=== PATIENT | male | born 1930 | race Caucasian/White ===

== ENCOUNTER → 2016-09-23 | Outpatient (CLI) | payer MEDICARE, OTHER ==
--- NOTE | 2016-09-23 09:04 | RAD ---
Three view left knee. Indication: PAIN IN RIGHT KNEE Comparison: None Impression: Severe medial compartment osteoarthritis noted with moderate osteoarthritis of the lateral and patellofemoral compartments. Joint space narrowing and joint line osteophytes noted at each compartment with areas of cortical remodeling of the medial femoral condyle. No acute fracture or malalignment. Small suprapatellar knee effusion. Osteopenia. If this is a new finding, DEXA scan recommended as well as evaluation for possible osteoporosis treatment. Electronically signed by: Brent Kwan MD 09/23/2016 09:01
--- NOTE | 2016-09-23 09:05 | RAD ---
Single frontal view pelvis. Indication: PAIN IN RIGHT HIP Comparison: February 25, 2013. Impression: Mild to moderate bilateral hip osteoarthritis with joint space narrowing and acetabular roof osteophyte formation. No subchondral sclerosis or cystic change. No acute fracture or malalignment, evaluation is limited given degree of osteopenia. If high clinical concern for fracture, correlation with MRI or CT recommended. Partial visualization of iliac artery grafts. Heterotopic ossification noted inferolaterally left greater trochanter. 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 Electronically signed by: Brent Kwan MD 09/23/2016 09:02
== END ==
LOC: RAD 08:26
PROVIDERS: ATTEND Orthopaedic Surgery
DX: M17.12 Unilateral primary osteoarthritis, left knee (principal); M16.0 Bilateral primary osteoarthritis of hip; M19.90 Unspecified osteoarthritis, unspecified site

== ENCOUNTER → 2016-10-16 | Outpatient (CLI) | payer MEDICARE, OTHER ==
--- NOTE | 2016-10-16 11:25 | MRI ---
EXAM DESCRIPTION: Brain MRI. CLINICAL HISTORY: Acute onset of dizziness COMPARISON: None. TECHNIQUE: Multiplanar, multisequence MR images were acquired without IV contrast. FINDINGS: The midline structures are unremarkable on today's study. There are a few T2 hyperintensities noted within the cerebral white matter. 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 No intracranial mass effect, hydrocephalus, midline shift, hemorrhage, extra-axial fluid collection, abnormal vascular flow void, or restricted diffusion is seen. Minimal mucosal thickening seen within bilateral maxillary sinuses and ethmoid air cells. The orbits are unremarkable. Mastoid air cells are clear. IMPRESSION: Today's exam demonstrates minimal periventricular white matter disease with evidence of an old anterior right phoenix radiata lacunar infarct. No acute infarct on today's study. No additional significant findings noted Electronically signed by: Alex Rodriguez MD 10/16/2016 11:24
== END ==
LOC: MRI 09:23
PROVIDERS: ATTEND Family Medicine
DX: R42 Dizziness and giddiness (principal)

== ENCOUNTER → 2017-01-08 | Outpatient (CLI) | payer MEDICARE | END | disposition home or self-care (01) | LOC: GMAB 10:48 | PROVIDERS: ATTEND Family Medicine | DX: E03.9 Hypothyroidism, unspecified (principal); Z12.5 Encounter for screening for malignant neoplasm of prostate ==

== ENCOUNTER 2017-11-18 11:30 | Inpatient (IN) | payer MEDICARE ==
--- NOTE | 2017-11-18 11:52 | HP ---
SUPERVISING PHYSICIAN: Dimas Pires M.D. CHIEF COMPLAINT: Weakness and cold symptoms. HISTORY OF PRESENT ILLNESS: This is an 87 year-old male patient who has had symptoms of an upper respiratory infection for approximately 3 weeks. He started out with just a cough with some nausea and chest congestion. Approximately 3 weeks ago he was given a Z-Ramon at that time. It did get slightly better after the completion of his antibiotics, but then he worsened progressively over the last 3 weeks. It got to the point where he quit taking his medications. He was coughing. He had nausea with vomiting. He was extremely weak. He went to see his primary care physician, Dr. Ben Reyes, today and was found to have a normal white blood cell count but his chest x-ray showed a right lower lobe pneumonia. I was called for direct admission. He was admitted to the hospital. Vital signs showed that he was afebrile with a pulse rate of 111. Blood pressure was 137/82, respiratory rate 19, O2 sat was 94% on room air. Sodium was 131, potassium 3.7, chloride 99, carbon dioxide 23 , BUN 33, creatinine 1.48. He has had a past history of an elevated creatinine of 1.94 in 2012. Glucose was 131. BNP was 35.3. Digoxin level was less than 0.3. He was started initially on azithromycin and Rocephin but during the infusion of his azithromycin he had severe abdominal pain. The azithromycin was stopped and he was started on Levaquin. PAST MEDICAL HISTORY: 1. Hypertension. 2. Hyperlipidemia. 3. Gastroesophageal reflux disease. 4. Chronic back pain. 5. Hypothyroidism. 6. Atrial fibrillation on Xarelto, beta vishal and digoxin. PAST SURGICAL HISTORY: 1. Appendectomy. 2. Cholecystectomy. 3. Laparoscopic knee surgery. 4. Lung bronchoscopy. OUTPATIENT MEDICATIONS: Per the EMR and awaiting verification. ALLERGIES: NO KNOWN DRUG ALLERGIES, ALTHOUGH HE DID HAVE SOME ABDOMINAL PAIN WITH IV AZITHROMYCIN AT THIS VISIT. SOCIAL HISTORY: He is . He has 1 child. 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 He quit smoking in 2004. He drinks alcohol socially. He denies any illicit drug use. REVIEW OF SYSTEMS: GENERAL: Positive for fatigue. Negative for chills or fever. RESPIRATORY: Positive for coughing, shortness of breath and wheezing. CARDIOVASCULAR: Negative for chest pain, palpitations or tachycardia. GASTROINTESTINAL: Positive for anorexia, nausea or vomiting. Negative for constipation or diarrhea. MUSCULOSKELETAL: Negative for arthritis, back pain or myalgias. NEUROLOGIC: Negative for dizziness, headaches or seizures. GENITOURINARY: Negative hematuria, dysuria or polyuria. PHYSICAL EXAMINATION: VITAL SIGNS: He is afebrile. Heart rate 108, blood pressure 137/82, respiratory rate 18, O2 sat is 92% on room air. GENERAL: This is an 87 year-old male patient who is sitting up in his hospital bed. He appears to be moderately ill. HEENT: Normocephalic and atraumatic. Pupils are equal and reactive. Oropharynx is clear. Oral mucosal membranes are moist. NECK: RESPIRATORY: Normal respiratory rate. He has some expiratory wheezes in the bases and there are rhonchi scattered throughout. CHEST: There is equal rise and fall of the chest with inspiration and expiration. CARDIOVASCULAR: Regular rate and rhythm. GASTROINTESTINAL: Abdomen is soft, nondistended, non-tender. Bowel sounds are positive. EXTREMITIES: No cyanosis, clubbing or edema. NEUROLOGIC: He is awake, alert and oriented times three. LABORATORY: Labs and films are as per the history of present illness. ASSESSMENT: 1. Right lower lobe pneumonia failed outpatient therapy with an elevated heart rate of 111. 2. History of atrial fibrillation with a past history of an ablation on Xarelto, metoprolol and digoxin. 3. Hypertension, 4. Hyperlipidemia. 5. Gastroesophageal reflux disease. 6. Congestive heart failure with mild diastolic dysfunction and an ejection fraction of 65% per echo in 2014. PLAN: We will admit the patient to the hospital. Due to his adverse reaction to the IV azithromycin, he will be on Levaquin and Rocephin. We will do good pulmonary hygiene. I have given him some IV steroids and we will taper those off. Will repeat his labs and chest x-ray in the morning. I have restarted his home medications. I spoke with Dr. Espinoza about the patient's heart rate and low digoxin level. He said it was unnecessary to give him extra digoxin, just to restart his medications and if needed to go up on the metoprolol. I have also ordered some Mucinex. We will continue to monitor the patient closely and followup as needed. Dr. Pires is the collaborating physician available for consultation. #[id number] [facility]
[2017-11-18] MEDS ORDERED: SODIUM CHLORIDE 0.9% (FLUSH) 10 ML SYG IV PRN (12:11)
[2017-11-18] MEDS ORDERED: SODIUM CHL 0.9% 50ML MIN-BAG+ 50 ML IVPB ONE (13:01)
[2017-11-18] MEDS ORDERED: cefTRIAXone SODIUM 1 GM VIAL ONE (13:01)
[2017-11-18] MEDS ORDERED: AZITHROMYCIN IV 500 MG VIAL IVPB ONE (13:01)
[2017-11-18] MEDS ORDERED: SODIUM CHLORIDE 0.9% 250ML 250 ML ONE (13:01)
[2017-11-18] MEDS: cefTRIAXone SODIUM 1 GM in SODIUM CHL 0.9% 50ML MIN-BAG+ 50 ML IVPB SCH (13:03)
[2017-11-18] MEDS: IV SET AND CAP CHANGE INJ INJ SCH (13:04)
[2017-11-18] MEDS ORDERED: AZITHROMYCIN IV 500 MG in SODIUM CHLORIDE 0.9% 250ML 250 ML IVPB SCH (13:30)
[2017-11-18] MEDS ORDERED: ALBUTEROL SULFATE 2.5 MG/3 ML VIAL NEB PRN (13:51)
[2017-11-18] MEDS: ALBUTEROL SULFATE 2.5 MG/3 ML VIAL NEB SCH ×3 (14:15→20:02)
[2017-11-18] MEDS ORDERED: HYDROcodone 5MG/APAP 325MG 1 EA TAB PO ONE (14:48)
[2017-11-18] MEDS ORDERED: METOPROLOL TARTRATE 50 MG TAB PO ONE (14:48)
[2017-11-18] MEDS ORDERED: DIGOXIN 0.125 MG TAB PO ONE (15:00)
[2017-11-18] MEDS ORDERED: ALUMINUM & MAGNESIUM HYDROXIDE 30 ML UD ONE (15:05)
[2017-11-18] MEDS ORDERED: ALUMINUM & MAGNESIUM HYDROXIDE 30 ML UD PO ONE (15:06)
[2017-11-18] MEDS ORDERED: levoFLOXacin 500MG IV 100 ML IVPB ONE (17:32)
[2017-11-18] MEDS: levoFLOXacin 500MG IV 500 MG in PREMIX BAG 1 BAG IVPB SCH (17:40)
[2017-11-18] MEDS ORDERED: methylPREDNISolone SODIUM SUC 125 MG/2 ML VIAL IV ONE (18:13)
[2017-11-18] MEDS ORDERED: methylPREDNISolone SODIUM SUC 125 MG/2 ML VIAL IV SCH (18:30)
[2017-11-18] MEDS ORDERED: DIGOXIN 0.125 MG TAB PO SCH (18:30)
[2017-11-18] MEDS ORDERED: RIVAROXABAN 10 MG TAB ONE (19:27)
[2017-11-18] MEDS ORDERED: HYDROcodone 5MG/APAP 325MG 1 EA TAB ONE (20:31)
[2017-11-18] MEDS: SODIUM CHLORIDE 0.9% (FLUSH) 10 ML SYG IV SCH (20:39)
[2017-11-18] MEDS: guaiFENesin ER TAB 600 MG TAB PO SCH (20:39)
[2017-11-18] MEDS: traZODone HCL 50 MG TAB PO SCH (20:39)
[2017-11-18] MEDS: HYDROcodone 7.5MG/APAP 325MG 1 EA TAB PO PRN (20:41)
[2017-11-18] MEDS ORDERED: FUROSEMIDE 40 MG TAB PO SCH (21:00)
[2017-11-18] MEDS ORDERED: NON-FORMULARY MEDICATION 1 EA MIS (Rivaroxaban [Xarelto] 20 MG) PO SCH (21:00)
[2017-11-18] MEDS ORDERED: HYDROcodone 7.5MG/APAP 325MG 1 EA TAB PO SCH (22:00)
[2017-11-19] MEDS: methylPREDNISolone SODIUM SUC 125 MG/2 ML VIAL IV SCH ×3 (05:57→21:43)
--- NOTE | 2017-11-19 07:42 | RAD ---
EXAM DESCRIPTION: Chest,2 Views CLINICAL HISTORY: Pneumonia COMPARISON: November 20, 2015 FINDINGS: Two-view chest x-ray shows enlargement of the cardiac silhouette without pulmonary vascular congestion. The lungs are hyperinflated. More prominent patchy areas of airspace interstitial alveolar density are seen in the right lower lobe than previous exam. Increased density in the retrocardiac region with questionable air-fluid level is seen. Moderate disc degenerative changes of the spine are noted. IMPRESSION: Developing infiltrates in the right lower lobe could represent pneumonia versus atelectasis. Continued follow-up until resolution is recommended. Suspect retrocardiac hiatal hernia. Electronically signed by: Hansel Wolfe MD 11/19/2017 7:41 AM CLIENT SERVICE PROFESSIONAL
[2017-11-19] MEDS: ALBUTEROL SULFATE 2.5 MG/3 ML VIAL NEB SCH ×4 (08:02→21:00)
[2017-11-19] MEDS: LISINOPRIL 5 MG TAB PO SCH (08:29)
[2017-11-19] MEDS: FUROSEMIDE 40 MG TAB PO SCH ×2 (08:29→17:19)
[2017-11-19] MEDS: METOPROLOL SUCCINATE XL 50 MG TAB PO SCH (08:30)
[2017-11-19] MEDS: guaiFENesin ER TAB 600 MG TAB PO SCH ×2 (08:30→20:37)
[2017-11-19] MEDS: SODIUM CHLORIDE 0.9% (FLUSH) 10 ML SYG IV SCH (08:30)
[2017-11-19] MEDS ORDERED: SODIUM CHL 0.9% 50ML MIN-BAG+ 50 ML IVPB ONE (11:27)
[2017-11-19] MEDS ORDERED: cefTRIAXone SODIUM 1 GM VIAL ONE (11:28)
[2017-11-19] MEDS: cefTRIAXone SODIUM 1 GM in SODIUM CHL 0.9% 50ML MIN-BAG+ 50 ML IVPB SCH (13:02)
[2017-11-19] MEDS: DIGOXIN 0.125 MG TAB PO SCH (13:02)
[2017-11-19] MEDS ORDERED: MAGNESIUM SULFATE PREMIX 2GM 2 GM in PREMIX BAG 1 BAG IVPB ONE (14:04)
[2017-11-19] MEDS ORDERED: SODIUM CHLORIDE 0.9% 1000ML 1,000 ML IVS PRN (14:04)
[2017-11-19] MEDS ORDERED: DEXTROSE 50% 25 GM/50 ML SYG IV PRN (14:12)
[2017-11-19] MEDS ORDERED: GLUCAGON INJ 1 MG VIAL SUBCU PRN (14:12)
[2017-11-19] MEDS ORDERED: MAGNESIUM SULFATE PREMIX 2GM 50 ML IVPB ONE (14:51)
[2017-11-19] MEDS ORDERED: levoFLOXacin 500MG IV 100 ML IVPB ONE (14:51)
--- NOTE | 2017-11-19 15:38 | PN ---
DATE: 11/19/17 SUPERVISING PHYSICIAN: Dimas Pires M.D. SUBJECTIVE: The patient is sitting in his hospital bed. He complains of insomnia as well as some shortness of breath. Denies chest pain, nausea and vomiting, wheezing, cough, diarrhea or constipation. OBJECTIVE: VITAL SIGNS: He is afebrile, heart rate 104, blood pressure 155/77, respiratory rate 20, O2 sat is 92% on room air. RESPIRATORY: Scattered rhonchi throughout with a few expiratory wheezes in the right lower lung francois. CARDIAC: Slightly tachycardic rate, regular rhythm. GASTROINTESTINAL: Abdomen is soft, nondistended, non-tender. Bowel sounds are positive. EXTREMITIES: No cyanosis, clubbing or edema. NEUROLOGIC: He is awake, alert and oriented times three. LABORATORY: WBC of 4, hemoglobin 16.3 with hematocrit 47.6, neutrophils 87.6. Sodium 132, potassium 4, chloride 99, carbon dioxide 23, BUN 37, creatinine 1.43. Blood sugars are up to 314 with calcium 8.1, magnesium 1.6. Preliminary sputum culture shows normal emlba at 24 hours. Preliminary blood cultures show no growth after 24 hours. RADIOLOGY: Chest x-ray shows developing infiltrates in the right lower lobe, could represent pneumonia versus atelectasis. Continued followup recommended. Suspect retrocardiac hiatal hernia. All other labs and films have been reviewed via the EMR. ASSESSMENT: 1. Right lower lobe pneumonia failed outpatient therapy with an elevated heart rate of 111 that is now down to around 100. 2. History of atrial fibrillation with a past history of an ablation on Xarelto, metoprolol and digoxin. 3. Hypertension. 4. Elevated blood sugars without diagnosis of diabetes mellitus. 5. Hyperlipidemia. 6. Gastroesophageal reflux disease. 7. Congestive heart failure with mild diastolic dysfunction and an ejection fraction of 65% per echo in 2014. His BNP on admission was 35. PLAN: We will continue present supportive care. I have added Accu-Cheks with sliding scale insulin. Most likely blood sugars are elevated due to steroids. I have also tapered his steroids down and I will give him 1 liter of fluids as he did not receive any on admission yesterday due to possible fluid overload. His BNP was normal, so I will give him 1 liter. His magnesium was also slightly low so I have given him some magnesium replacement and I will recheck it in the morning. I held off on an x-ray as he will be here at least 2 additional days and will do an x-ray on Friday morning. Will continue to monitor cultures. Continue on the Levaquin and Rocephin. We will monitor the patient closely and follow as needed. Dr. Pires is the collaborating physician available for consultation. #[id number] [facility]TD[facility]
[2017-11-19] MEDS: INSULIN LISPRO 100 UNITS/ML PEN SUBCU SCH ×2 (17:18→21:16)
[2017-11-19] MEDS: levoFLOXacin 500MG IV 500 MG in PREMIX BAG 1 BAG IVPB SCH (17:19)
[2017-11-19] MEDS: RIVAROXABAN 10 MG TAB PO SCH (20:37)
[2017-11-19] MEDS: traZODone HCL 50 MG TAB PO SCH (20:37)
[2017-11-19] MEDS: SIMVASTATIN 20 MG TAB PO SCH (20:37)
[2017-11-19] MEDS: TEMAZEPAM 15 MG CAP PO PRN (20:37)
[2017-11-19] MEDS: HYDROcodone 7.5MG/APAP 325MG 1 EA TAB PO PRN (20:38)
[2017-11-20] MEDS ORDERED: methylPREDNISolone SODIUM SUC 40 MG/ML VIAL IV SCH (06:00)
[2017-11-20] MEDS: INSULIN LISPRO 100 UNITS/ML PEN SUBCU SCH ×4 (07:11→21:19)
[2017-11-20] MEDS: ALBUTEROL SULFATE 2.5 MG/3 ML VIAL NEB SCH (07:13)
[2017-11-20] MEDS: guaiFENesin ER TAB 600 MG TAB PO SCH ×2 (09:28→20:42)
[2017-11-20] MEDS: METOPROLOL SUCCINATE XL 50 MG TAB PO SCH (09:28)
[2017-11-20] MEDS: LISINOPRIL 5 MG TAB PO SCH (09:29)
[2017-11-20] MEDS: FUROSEMIDE 40 MG TAB PO SCH ×2 (09:29→17:12)
[2017-11-20] MEDS ORDERED: LEVALBUTEROL NEBS 1.25 MG/3 ML VIAL NEB PRN (11:10)
[2017-11-20] MEDS: LEVALBUTEROL NEBS 1.25 MG/3 ML VIAL NEB SCH ×3 (11:26→20:10)
--- NOTE | 2017-11-20 11:45 | PN ---
SUPERVISING PHYSICIAN: Dimas Pires MD DATE: 11/20/17 SUBJECTIVE: The patient is sitting up on the side of the bed. He complains of congestive cough and weakness, but he does feel much better than he has and he has been able to walk in the hallways today whereas it was very difficult yesterday. He also complained that the breathing treatments were making him slightly shaky. We spoke at length about pneumonia and recovery time. OBJECTIVE: VITAL SIGNS: Afebrile. Heart rate 99. Blood pressure 136/78. Respiratory rate 20. O2 saturation 90% on room air. RESPIRATORY: Scattered rhonchi throughout. No wheezing noted. Somewhat diminished at the bases. CARDIAC: Regular rate and rhythm. GASTROINTESTINAL: Abdomen is soft, nondistended, nontender. Bowel sounds are positive. EXTREMITIES: No cyanosis, clubbing or edema. NEUROLOGIC: Awake, alert and oriented times three. LABORATORY: WBCs 10.6, stable hemoglobin 16.6, hematocrit 48.7. Blood sugars have run between 185 and 137. Sodium 135, potassium 4, chloride 100, carbon dioxide 24, BUN 39, creatinine 1.57, calcium 8.2. Sputum culture shows normal melba at 48 hours. Preliminary blood cultures show no growth at 24 hours. All other labs and films have been reviewed via the EMR. ASSESSMENT: 1. Right lower lobe pneumonia failed outpatient therapy with an elevated heart rate of 111 that is now down to 70s and 80s. 2. History of atrial fibrillation with a past history of an ablation, presently on Xarelto, metoprolol and digoxin. 3. Hypertension. 4. Elevated blood sugars without diagnosis of diabetes mellitus, presently on steroids and blood sugars are fairly well controlled. 5. Hyperlipidemia. 6. Gastroesophageal reflux disease. 7. Congestive heart failure with mild diastolic dysfunction and an ejection fraction of 65% per echocardiogram in 2014. His BNP on admission was 35. PLAN: We will continue present supportive care. I have changed his breathing treatments from albuterol to Xopenex to help with his shakiness. I also increased his Mucinex to help with his cough. I have discontinued IV fluids. I have added lab and chest x-ray in the morning. I will also have an ambulation study in case he needs oxygen for discharge. I encouraged him to walk in the hallways as much as possible and continue encouraging good pulmonary hygiene. Dr. Pires is the collaborating physician and available for consultation. #[id number] [facility]
[2017-11-20] MEDS ORDERED: cefTRIAXone SODIUM 1 GM VIAL ONE (12:04)
[2017-11-20] MEDS ORDERED: SODIUM CHL 0.9% 50ML MIN-BAG+ 50 ML IVPB ONE (12:04)
[2017-11-20] MEDS: DIGOXIN 0.125 MG TAB PO SCH (12:30)
[2017-11-20] MEDS: cefTRIAXone SODIUM 1 GM in SODIUM CHL 0.9% 50ML MIN-BAG+ 50 ML IVPB SCH (12:30)
[2017-11-20] MEDS: methylPREDNISolone SODIUM SUC 40 MG/ML VIAL IV SCH ×2 (13:00→18:21)
[2017-11-20] MEDS ORDERED: levoFLOXacin 250MG IV 50 ML IVPB ONE (16:56)
[2017-11-20] MEDS ORDERED: MAGNESIUM HYDROXIDE 30 ML UD PO ONE (17:08)
[2017-11-20] MEDS: levoFLOXacin 250MG IV 250 MG in PREMIX BAG 1 BAG IVPB SCH (17:12)
[2017-11-20] MEDS: RIVAROXABAN 10 MG TAB PO SCH (20:43)
[2017-11-20] MEDS: SIMVASTATIN 20 MG TAB PO SCH (20:43)
[2017-11-20] MEDS: SODIUM CHLORIDE 0.9% (FLUSH) 10 ML SYG IV SCH (20:43)
[2017-11-20] MEDS: traZODone HCL 50 MG TAB PO SCH (20:43)
[2017-11-21] MEDS: TEMAZEPAM 15 MG CAP PO PRN (00:30)
[2017-11-21] MEDS: methylPREDNISolone SODIUM SUC 40 MG/ML VIAL IV SCH ×2 (00:30→05:58)
[2017-11-21] MEDS: HYDROcodone 7.5MG/APAP 325MG 1 EA TAB PO PRN ×2 (01:16→16:44)
--- NOTE | 2017-11-21 06:52 | RAD ---
EXAM: PA and LATERAL CHEST RADIOGRAPHS CLINICAL INDICATION: Shortness of breath. Pneumonia. COMPARISON: Chest radiographs of November 19, 2017. FINDINGS: Cardiac size and pulmonary vasculature are normal. Improving right basilar consolidation. Left lung is clear. No pleural effusions or pneumothorax. No free peritoneal gas layering under the hemidiaphragms. No suspicious hilar or mediastinal lymphadenopathy. Bones are normal. IMPRESSION: Improving right basilar consolidation. Electronically signed by: Dustin Becker MD 11/21/2017 6:51 AM REVIT DRAFTER
[2017-11-21] MEDS ORDERED: SODIUM CHL 0.9% 50ML MIN-BAG+ 50 ML IVPB ONE (07:19)
[2017-11-21] MEDS ORDERED: cefTRIAXone SODIUM 1 GM VIAL ONE (07:20)
[2017-11-21] MEDS ORDERED: levoFLOXacin 250MG IV 50 ML IVPB ONE (07:20)
[2017-11-21] MEDS: INSULIN LISPRO 100 UNITS/ML PEN SUBCU SCH ×4 (07:33→21:03)
[2017-11-21] MEDS: LEVALBUTEROL NEBS 1.25 MG/3 ML VIAL NEB SCH ×4 (08:32→20:59)
[2017-11-21] MEDS: guaiFENesin ER TAB 600 MG TAB PO SCH ×2 (08:54→20:59)
[2017-11-21] MEDS: LISINOPRIL 5 MG TAB PO SCH (08:54)
[2017-11-21] MEDS: FUROSEMIDE 40 MG TAB PO SCH ×2 (08:55→16:48)
[2017-11-21] MEDS: METOPROLOL SUCCINATE XL 50 MG TAB PO SCH (08:55)
[2017-11-21] MEDS: SODIUM CHLORIDE 0.9% (FLUSH) 10 ML SYG IV SCH ×2 (08:55→21:00)
[2017-11-21] MEDS: predniSONE 20 MG TAB PO SCH (09:30)
[2017-11-21] MEDS: cefTRIAXone SODIUM 1 GM in SODIUM CHL 0.9% 50ML MIN-BAG+ 50 ML IVPB SCH (11:52)
[2017-11-21] MEDS: DIGOXIN 0.125 MG TAB PO SCH (11:52)
--- NOTE | 2017-11-21 13:46 | PN ---
SUPERVISING PHYSICIAN: Dimas Pires MD DATE: 11/21/17 SUBJECTIVE: The patient is sitting up in his chair. He has been walking the hallways. He feels like he is getting much stronger. He has no complaints of shortness of breath, nausea, vomiting, diarrhea or constipation. OBJECTIVE: VITAL SIGNS: Afebrile. Heart rate 92 to 107. Blood pressure 134/ 84. Respiratory rate 21. O2 satisfactory 95% on room air. RESPIRATORY: A few scattered rhonchi in the apices, but much improved since yesterday. Slightly diminished at the bases. CARDIAC: Regular rate and rhythm. NEUROLOGIC: Awake, alert and oriented times three. LABORATORY: WBC 9.7, hemoglobin 15.7, hematocrit 46.3, platelet count 193. Blood sugars have run between 107 and 177. Sodium 137, potassium 4.2, chloride 102, carbon dioxide 27, BUN 45, creatinine 1.49. Calcium 8.2, magnesium 2.6. His final sputum culture shows normal melba at 48 hours. Preliminary blood culture showed no growth after 3 days. Chest x-ray shows improving right basilar consolidation. All other labs and films have been reviewed via the EMR. ASSESSMENT: 1. Right lower lobe pneumonia failed outpatient therapy with an elevated heart rate of 111, now within normal limits. 2. History of atrial fibrillation with a past history of an ablation, presently on Xarelto, metoprolol and digoxin. 3. Hypertension. 4. Elevated blood sugars without diagnosis of diabetes mellitus, presently on a a tapering dose of steroids. 5. Hyperlipidemia. 6. Gastroesophageal reflux disease. 7. Congestive heart failure with mild diastolic dysfunction and an ejection fraction of 65% per echocardiogram in 2014. His BNP on admission was 35. PLAN: We will continue present supportive care. I have encouraged good pulmonary hygiene as well as continued frequent walking in the hallways. He is still quite concerned about going home as his has dementia and he may need some assistance. We have discussed home health and at this point he cannot decide which agency he will use. I will recheck his labs and chest x-ray tomorrow. He is now on oral prednisone. Hopefully he can be discharged tomorrow. We will continue to monitor the patient closely and follow as needed. Dr. Pires is the collaborating physician and available for consultation. #[id number] [facility]
[2017-11-21] MEDS: IV SET AND CAP CHANGE INJ INJ SCH (16:48)
[2017-11-21] MEDS: levoFLOXacin 250MG IV 250 MG in PREMIX BAG 1 BAG IVPB SCH (18:20)
[2017-11-21] MEDS: RIVAROXABAN 10 MG TAB PO SCH (20:59)
[2017-11-21] MEDS: SIMVASTATIN 20 MG TAB PO SCH (20:59)
[2017-11-21] MEDS: traZODone HCL 50 MG TAB PO SCH (21:00)
[2017-11-22] MEDS: LEVALBUTEROL NEBS 1.25 MG/3 ML VIAL NEB SCH ×4 (07:22→20:05)
--- NOTE | 2017-11-22 07:28 | RAD ---
Clinical History : pna , MAIN Exam : PA and lateral views of the chest 11/22/2017 5:00 AM [employer]EE [employer] Comparisons : PA and lateral views of the chest November 21, 2017 CT abdomen and pelvis without contrast April 13, 2013 Findings : There is increasing patchy right basilar airspace disease. The rest the lungs remain largely clear without pleural effusion. The heart is stable in size. The mediastinal contours are normal in appearance. There are vascular calcifications along the aortic arch. There is a stable moderate-sized hiatal hernia. The thoracic spine is age appropriate. The shoulders are unremarkable. Limited evaluation of the upper abdomen demonstrates no gross abnormalities. Impression: 1. Increasing patchy right basilar airspace disease. 2. Stable moderate hiatal hernia. Electronically signed by: Garima Zamorano MD 11/22/2017 7:27 AM J[employer]
[2017-11-22] MEDS: INSULIN LISPRO 100 UNITS/ML PEN SUBCU SCH ×4 (08:12→21:15)
[2017-11-22] MEDS: HYDROcodone 7.5MG/APAP 325MG 1 EA TAB PO PRN ×2 (10:28→19:29)
[2017-11-22] MEDS: FUROSEMIDE 40 MG TAB PO SCH ×2 (10:28→17:03)
[2017-11-22] MEDS: LISINOPRIL 5 MG TAB PO SCH (10:28)
[2017-11-22] MEDS: predniSONE 20 MG TAB PO SCH (10:28)
[2017-11-22] MEDS: guaiFENesin ER TAB 600 MG TAB PO SCH ×2 (10:29→20:41)
[2017-11-22] MEDS: METOPROLOL SUCCINATE XL 50 MG TAB PO SCH (10:29)
[2017-11-22] MEDS: SODIUM CHLORIDE 0.9% (FLUSH) 10 ML SYG IV SCH ×2 (10:32→20:42)
[2017-11-22] MEDS ORDERED: SODIUM CHL 0.9% 50ML MIN-BAG+ 50 ML IVPB ONE (12:43)
[2017-11-22] MEDS ORDERED: cefTRIAXone SODIUM 1 GM VIAL ONE (12:44)
[2017-11-22] MEDS: DIGOXIN 0.125 MG TAB PO SCH (12:49)
[2017-11-22] MEDS: cefTRIAXone SODIUM 1 GM in SODIUM CHL 0.9% 50ML MIN-BAG+ 50 ML IVPB SCH (12:49)
--- NOTE | 2017-11-22 13:59 | PN ---
DATE: 11/22/17 SUBJECTIVE: The patient is lying in the bed. He is fully awake and alert. He states he is very tired and has difficulty getting out of the bed without some assistance. He has been ambulating but he states that it is hard for him to walk as far as he needs to walk in order to continue taking care of his when he returns home. He is concerned that she is unable to participate in giving him care because of her own disabilities. His does have dementia and is currently at home alone. At this time, the patient does not wish to have home health and is hoping to be able to spend 1 more day to get a little stronger. OBJECTIVE: Afebrile, pulse 92, blood pressure 131/72, pulse oximetry 97% on room air. Weight is 91.3 kilos. GENERAL: The patient is awake and alert. BREATHING: He does have noticeable rales in the right base with none noted on the left. Breath sounds are fairly otherwise equal bilaterally. ABDOMEN: Soft. No organomegaly evident. LABORATORY: White count 8,400, hemoglobin 14.6. Chemistry shows potassium 3.9 , BUN is 48 which is up from 45 yesterday. Creatinine is 1.51 up from 1.49 yesterday. Sugar is 150 fasting, calcium 8. Cultures of sputum and blood are negative at this time. Repeat chest x-ray shows a progression in the previously noted slight improvement in the right basilar infiltrative process suggesting a pneumonia. ASSESSMENT: 1. Acute right lower lobe pneumonia probable community acquired, symptomatic with weakness, shortness of breath and tachycardia. Sputum cultures negative being treated with Rocephin and Levaquin at this time. 2. History of atrial fibrillation in the past with a history of an ablation currently on Xarelto, metoprolol and digoxin. 3. History of hypertension under treatment. 4. History of hyperglycemia but no diagnosis of diabetes mellitus currently on corticosteroids being tapered. 5. Hyperlipidemia by history. 6. History of gastroesophageal reflux disease. 7. History of congestive heart failure with mild diastolic dysfunction and an ejection fraction of 65% on echocardiogram in 2013. BNP on admission normal at 35. PLAN: At this time, the patient is noticeably weak and wishes 1 more day of increased activities to the point that he would be safe to be able to return home and continue with the ongoing care of his . At this time, we will hold on home health and reevaluate in the morning. Hopefully continued outpatient management can be done at that time with followup with Dr. Reyes's office. #[id number] [facility]TD[facility]
[2017-11-22] MEDS ORDERED: levoFLOXacin 250MG IV 50 ML IVPB ONE (16:47)
[2017-11-22] MEDS: levoFLOXacin 250MG IV 250 MG in PREMIX BAG 1 BAG IVPB SCH (17:03)
[2017-11-22] MEDS: SIMVASTATIN 20 MG TAB PO SCH (20:41)
[2017-11-22] MEDS: traZODone HCL 50 MG TAB PO SCH (20:42)
[2017-11-22] MEDS: RIVAROXABAN 10 MG TAB PO SCH (20:42)
[2017-11-23] MEDS: LEVALBUTEROL NEBS 1.25 MG/3 ML VIAL NEB SCH ×2 (07:53→12:49)
[2017-11-23] MEDS: INSULIN LISPRO 100 UNITS/ML PEN SUBCU SCH ×2 (08:12→11:29)
[2017-11-23] MEDS: guaiFENesin ER TAB 600 MG TAB PO SCH (08:26)
[2017-11-23] MEDS: predniSONE 20 MG TAB PO SCH (08:26)
[2017-11-23] MEDS: METOPROLOL SUCCINATE XL 50 MG TAB PO SCH (08:27)
[2017-11-23] MEDS: LISINOPRIL 5 MG TAB PO SCH (08:27)
[2017-11-23] MEDS: SODIUM CHLORIDE 0.9% (FLUSH) 10 ML SYG IV SCH (08:27)
[2017-11-23] MEDS: FUROSEMIDE 40 MG TAB PO SCH (08:27)
[2017-11-23] MEDS: HYDROcodone 7.5MG/APAP 325MG 1 EA TAB PO PRN (08:33)
[2017-11-23 11:12] VITALS: BP 128/76; TEMP 98.4
[2017-11-23] MEDS ORDERED: SODIUM CHL 0.9% 50ML MIN-BAG+ 50 ML IVPB ONE (12:37)
[2017-11-23] MEDS ORDERED: cefTRIAXone SODIUM 1 GM VIAL ONE (12:38)
[2017-11-23] MEDS: DIGOXIN 0.125 MG TAB PO SCH (12:57)
[2017-11-23] MEDS: cefTRIAXone SODIUM 1 GM in SODIUM CHL 0.9% 50ML MIN-BAG+ 50 ML IVPB SCH (12:58)
[2017-11-23 13:51] VITALS: O2SAT 96
[2017-11-23] MEDS ORDERED: levoFLOXacin 500 MG TAB ONE (14:05)
[2017-11-23] MEDS ORDERED: levoFLOXacin 500 MG TAB PO ONE (14:06)
--- NOTE | 2017-11-23 16:01 | DS ---
DISCHARGE DIAGNOSIS: 1. Acute right lower lobe pneumonia probable community acquired, symptomatic with weakness, shortness of breath and tachycardia on admission. Sputum cultures negative and was treated with Rocephin and Levaquin. 2. Chronic obstructive pulmonary disease with an acute exacerbation requiring antiinflammatory, bronchodilators and pulmonary hygiene to assist with resolution of some of the significant symptoms. 3. Chronic atrial fibrillation in the past with ablation and currently on Xarelto, metoprolol and digoxin. 4. History of hypertension under treatment. 5. History of hyperglycemia currently on corticosteroids being tapered. 6. History of hyperlipidemia. 7. History of gastroesophageal reflux disease. 8. .History of congestive heart failure with mild diastolic dysfunction and an ejection fraction of 65% on echocardiogram in 2014. BNP normal on admission. HISTORY OF PRESENT ILLNESS: This 87 year-old white male is admitted to the hospital because of worsening weakness with cough, some nausea, chest congestion and shortness of breath. It has been getting progressively worse for the last three weeks. He sees Dr. Reyes in the clinic where he was noted to have a right lower lobe on chest x-ray showing pneumonia. The patient was admitted from the office to the hospital for initiation of therapy and close followup with Dr. Reyes after discharge. He was initially started on azithromycin and Rocephin. The azithromycin seemed to coincide with some worsening abdominal discomfort and some nausea so it was stopped and changed to Levaquin which was successfully tolerated during the course of his treatment in the hospital. LABORATORY: White count was 6,500 up to 8.400 with 86% neutrophils. At discharge, hemoglobin was 14.6. INR 1.1. Chemistries show low sodium of 131, increasing to 137 at discharge. BUN was up to 48 by the time of discharge which will require ongoing followup. Creatinine also showed increase up to 1.51. Glucose was at a maximum of 314 but came down to 179 before discharge. Beta natriuretic peptide 35.3. Albumin 2.9. Urinalysis showed some ketonuria, 3+ bacteruria with cultures of blood, sputum showing no growth. Digoxin level was low at under 0.3. Chest x-ray did show persistence of the right lower lobe infiltrate with a hiatal hernia present. Close followup necessary. HOSPITAL COURSE: The patient was feeling much improved on the morning of discharge and very much was wanting to continue with outpatient management and followup so he could be at home to assist his . The is also present at the time of his discharge. PLAN: Followup with Dr. Reyes this next Friday with a chest x-ray before clinic visit so Dr. Reyes can review it, regarding the right lower lobe infiltrate. Appointment to be made by calling the office tomorrow with an appointment hopefully around November 26, 2017. Please refer to home medication list which he will be continued on Levaquin 500 mg daily for 7 days, continue with albuterol medication nebulizers t.i.d., prednisone 10 mg daily for 10 days and a trial of Restoril 15 mg only on a p.r.n. basis to help with insomnia. Stay active and breathe deeply. Return if not improving. #[id number] [facility]TDD
== END 2017-11-23 14:45 | disposition home or self-care (01) | DRG 194 ==
LOC: MS 11:30
PROVIDERS: ADMIT Nurse Practitioner Acute Care; ATTEND Emergency Medicine
DX: J18.9 Pneumonia, unspecified organism (principal); I50.32 Chronic diastolic (congestive) heart failure; J44.1 Chronic obstructive pulmonary disease with (acute) exacerbation; J44.0 Chronic obstructive pulmonary disease with (acute) lower respiratory infection; E87.1 Hypo-osmolality and hyponatremia; I48.91 Unspecified atrial fibrillation; I11.0 Hypertensive heart disease with heart failure; E78.5 Hyperlipidemia, unspecified; K21.9 Gastro-esophageal reflux disease without esophagitis; R63.0 Anorexia; R10.9 Unspecified abdominal pain; T36.3X5A Adverse effect of macrolides, initial encounter; Y92.238 Other place in hospital as the place of occurrence of the external cause; G89.29 Other chronic pain; M54.9 Dorsalgia, unspecified; E03.9 Hypothyroidism, unspecified; I48.2 Chronic atrial fibrillation; R73.9 Hyperglycemia, unspecified; T38.0X5A Adverse effect of glucocorticoids and synthetic analogues, initial encounter; K44.9 Diaphragmatic hernia without obstruction or gangrene; R00.0 Tachycardia, unspecified; G47.00 Insomnia, unspecified; E83.42 Hypomagnesemia; Z87.891 Personal history of nicotine dependence; Z79.01 Long term (current) use of anticoagulants; Z79.899 Other long term (current) drug therapy

== ENCOUNTER → 2017-12-12 | Outpatient (CLI) | payer MEDICARE ==
--- NOTE | 2017-12-13 09:03 | RAD ---
EXAM DESCRIPTION: Knee,Left Complete CLINICAL HISTORY: 87 years, Male, PAIN COMPARISON: None TECHNIQUE: 4 views of the left knee including 3 standing views FINDINGS: No fracture or dislocation. Bones appear dense. Markedly narrowed medial compartment on frontal view with sclerosis and eburnation and medial joint line spurring. Faint chondrocalcinosis is seen in the lateral compartment with lateral femoral condylar spurring and spurring at the tibial spines. Lateral view shows normal position of the patella. Posterior patellar spurring is present. Probable small suprapatellar knee joint effusion present. Normal contour of quadriceps and patellar tendons. There is prominent spurring of the posterior femoral condyles. No abnormal patellar tilt or subluxation on patellar sunrise view. Posterior patellar spurring is seen as well as spurring of the anterior femoral trochlea. IMPRESSION: Advanced osteoarthrosis of the left knee. Electronically signed by: Evens Singh MD 12/13/2017 9:02 AM CDT
--- NOTE | 2017-12-13 09:05 | RAD ---
EXAM DESCRIPTION: Knee,Right Complete CLINICAL HISTORY: 87 years, Male, PAIN COMPARISON: None TECHNIQUE: 4 views of the right knee, 3 of which were standing FINDINGS: No fracture or dislocation. Bones appear dense. Markedly narrowed medial compartment on frontal view. Meniscal calcification in the lateral compartment is seen. Prominent medial joint line spurring. Lateral view shows normal position of the patella. No patellar spurring or enthesopathy. No definite suprapatellar knee joint effusion. Normal contour of quadriceps and patellar tendons. Posterior patellar spurring medially and laterally is seen on patellar sunrise view. IMPRESSION: Advanced osteoarthrosis of the right knee. Electronically signed by: Evens Singh MD 12/13/2017 9:04 AM CDT
--- NOTE | 2017-12-13 09:07 | RAD ---
EXAM DESCRIPTION: Pelvis CLINICAL HISTORY: 87 years Male, PAIN COMPARISON: September 23, 2016 TECHNIQUE: 2 frontal views of the pelvis and hips FINDINGS: Degenerative changes are seen in the pubic symphysis. Stents are seen in the iliac vessels. Bones appear osteopenic. Degenerative changes are prominent in the L-spine. Soft tissue calcification is present near the greater trochanter of the proximal left femur. No hip fracture or dislocation. Intact bones of the pelvic ring. No sacral fracture. IMPRESSION: Negative for fracture or dislocation. Electronically signed by: Evens Singh MD 12/13/2017 9:06 AM CDT
== END ==
LOC: RAD 08:00
PROVIDERS: ATTEND Orthopaedic Surgery
DX: M17.11 Unilateral primary osteoarthritis, right knee (principal); M17.12 Unilateral primary osteoarthritis, left knee; M25.552 Pain in left hip; M25.551 Pain in right hip

== ENCOUNTER → 2018-04-10 | Outpatient (CLI) | payer MEDICARE | LOC: RESP 09:30 | PROVIDERS: ATTEND Family Medicine | DX: R06.02 Shortness of breath (principal) ==

== ENCOUNTER 2018-07-17 13:12 | Inpatient (IN) | payer MEDICARE ==
--- NOTE | 2018-07-17 13:53 | RAD ---
EXAM DESCRIPTION: Chest,1 View CLINICAL HISTORY: 88 years Male, fever COMPARISON: November 22, 2017 TECHNIQUE: AP portable chest. FINDINGS: Single view of the chest shows dense consolidation in the right lung base with at least a small amount of pleural fluid at the lateral lung base. The left lung is clear. Acute right basilar pneumonitis is suspected. The aorta is tortuous. Mild dextroscoliosis of the dorsal spine is noted. Arch size is upper normal with normal vascularity. The right basilar changes are new from prior November examination. IMPRESSION: Right basilar pneumonitis with small pleural effusion and upper normal heart size. Electronically signed by: Dimas Posada MD 07/17/2018 1:51 PM CDT
[2018-07-17] MEDS ORDERED: DIGOXIN INJ 0.5 MG/2 ML AMP IV ONE ×2 (13:55→22:00)
--- NOTE | 2018-07-17 14:30 | ED.PDOC ---
History of Present Illness - General Chief Complaint: General Stated Complaint: short of breath Time Seen by Provider: 07/17/18 13:17 Source: patient Exam Limitations: no limitations - History of Present Illness Initial Comments: Patient presents with fatigue. He says that it has been ongoing for months. A week ago, he stopped all of his medications and the fatigue has been getting worse. He says that he has had "strokes" before but never has had them treated. He has a history of recurrent falls. 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 Today he was taking a shower and it weakened him enough to where he wanted to go to bed and not get up. He has COPD and has chronic dyspnea. Does not use oxygen at home. He says that sometimes he has visual hallucinations. An example that he gives is that he can watch the television when it is turned off and still see things on the screen. He denies chest pain. Otherwise, has non-specific and vague complaints. Timing/Duration: changing over time Severity: moderate Improving Factors: nothing Worsening Factors: nothing Associated Symptoms: other - see HPI Allergies/Adverse Reactions: Allergies Azithromycin Adverse Reaction (Verified 11/19/17 10:24) Abdominal Pain. Home Medications: Ambulatory Orders Digoxin [Lanoxin] 0.125 mg PO DAILY 11/20/15 Ferrous Gluconate [Iron] 240 mg PO DAILY 11/20/15 Furosemide 40 mg PO BID 11/20/15 HYDROcodone 7.5MG/APAP 325MG [Elba 7.5/325] 1 mg PO Q8HR 11/20/15 Lisinopril 5 mg PO DAILY 11/20/15 Metoprolol Succinate [Metoprolol Succinate ER] 50 mg PO DAILY 11/20/15 Omeprazole 20 mg PO DAILY 11/20/15 Rivaroxaban [Xarelto] 20 mg PO BEDTIME 11/20/15 Simvastatin [Zocor] 20 mg PO DAILY 11/20/15 Trazodone HCl 50 mg PO BEDTIME 11/20/15 Albuterol Sulfate Nebs [Proventil Nebs] 2.5 mg INH TID #100 vial 11/23/17 Prednisone 10 mg PO QAM #10 tab 11/23/17 Temazepam [Restoril] 15 mg PO BEDTIME PRN #15 cap 11/23/17 levoFLOXacin [Levaquin] 500 mg PO DAILY #7 tab 11/23/17 Review of Systems - Review of Systems Constitutional: States: see HPI EENTM: States: no symptoms reported Respiratory: States: see HPI Cardiology: States: no symptoms reported Gastrointestinal/Abdominal: States: other - Says he has not eaten in a week Genitourinary: States: no symptoms reported Musculoskeletal: States: no symptoms reported Skin: States: no symptoms reported Neurological: States: see HPI Endocrine: States: no symptoms reported Hematologic/Lymphatic: States: no symptoms reported Past Medical History (General) - Patient Medical History Hx Seizures: No Hx Stroke: Yes Hx Asthma: No Hx of COPD: Yes Hx Cardiac Disorders: Yes - a fib Hx Congestive Heart Failure: Yes Hx Pacemaker: No Hx Hypertension: Yes Hx Diabetes: No Hx Gastroesophageal Reflux: Yes Hx MRSA: Yes - Nose 2012 MRSA Source:: Wound - Vaccination History Hx Tetanus, Diphtheria Vaccination: - unknown Hx Influenza Vaccination: No Hx Pneumococcal Vaccination: No - Social History Hx Tobacco Use: No Hx Chewing Tobacco Use: No Hx Alcohol Use: No Hx Substance Use: No Hx Substance Use Treatment: No Hx Depression: No Hx Physical Abuse: No Hx Emotional Abuse: No - Female History Patient : No Family Medical History - Family History Mother Family History: Unknown Living Status: Physical Exam - Physical Exam General Appearance: Alert Eye Exam: bilateral normal Ears, Nose, Throat: normal ENT inspection Neck: non-tender, full range of motion, supple Respiratory: other - mild wheezing in right lower lung field Cardiovascular/Chest: normal peripheral pulses, regular rate, rhythm, no edema Gastrointestinal/Abdominal: normal bowel sounds, non tender, soft Back Exam: normal inspection, no CVA tenderness Extremity: normal range of motion, non-tender, normal inspection 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: 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13 PTT (SP) 35.3 H pCO2 pO2 HCO3 ABG pH ABG O2 Saturation ABG Base Excess ABG Deoxyhemoglobin Oxyhemoglobin % Carboxyhemoglobin % Methemoglobin % Sat Calc Total Hemoglobin Sodium 132 L Potassium 3.8 Chloride 95 L Carbon Dioxide 21 Anion Gap 19.8 H BUN 31 H Creatinine 1.31 H BUN/Creatinine Ratio 23.7 H Random Glucose 105 Serum Osmolality 271.4 L Calcium 8.5 Total Bilirubin 1.8 H AST 56 H ALT 40 Alkaline Phosphatase 194 H Creatine Kinase 46 CK-MB (CK-2) 3.6 CK-MB (CK-2) % Not Reportable Troponin I 0.05 B-Natriuretic Peptide Serum Total Protein 7.2 Albumin 2.9 L Globulin 4.3 H Albumin/Globulin Ratio 0.7 L TSH Thyroxine (T4) Urine Color Urine Appearance Urine pH Ur Specific Deary Urine Protein Urine Glucose (UA) Urine Ketones Urine Blood Urine Nitrite Urine Bilirubin Urine Urobilinogen Ur Leukocyte Esterase Urine RBC Urine WBC Ur Epithelial Cells Urine Bacteria Digoxin 07/17/18 07/17/18 07/17/18 13:40 13:55 14:12 WBC RBC Hgb Hct MCV MCH MCHC RDW Plt Count MPV Absolute Neuts (auto) Absolute Lymphs (auto) Absolute Monos (auto) Absolute Eos (auto) Absolute Basos (auto) Neutrophils % Lymphocytes % Monocytes % Eosinophils % Basophils % PT INR PTT (SP) pCO2 pO2 HCO3 ABG pH ABG O2 Saturation ABG Base Excess ABG Deoxyhemoglobin Oxyhemoglobin % Carboxyhemoglobin % Methemoglobin % Sat Calc Total Hemoglobin Sodium Potassium Chloride Carbon Dioxide Anion Gap BUN Creatinine BUN/Creatinine Ratio Random Glucose Serum Osmolality Calcium Total Bilirubin AST ALT Alkaline Phosphatase Creatine Kinase CK-MB (CK-2) CK-MB (CK-2) % Troponin I B-Natriuretic Peptide 275.0 H* Serum Total Protein Albumin Globulin Albumin/Globulin Ratio TSH 6.41 H Thyroxine (T4) 2.28 L* Urine Color Dk yellow Urine Appearance Clear Urine pH 5.5 Ur Specific Deary 1.025 Urine Protein 100 H Urine Glucose (UA) Negative Urine Ketones 40 H Urine Blood Trace-intact H Urine Nitrite Negative Urine Bilirubin Large Urine Urobilinogen 2.0 H Ur Leukocyte Esterase Negative Urine RBC 0-1 Urine WBC 0 Ur Epithelial Cells 0 Urine Bacteria Rare Digoxin < 0.3 L 07/17/18 14:20 WBC RBC Hgb Hct MCV MCH MCHC RDW Plt Count MPV Absolute Neuts (auto) Absolute Lymphs (auto) Absolute Monos (auto) Absolute Eos (auto) Absolute Basos (auto) Neutrophils % Lymphocytes % Monocytes % Eosinophils % Basophils % PT INR PTT (SP) pCO2 35 pO2 58 L HCO3 20.7 ABG pH 7.390 ABG O2 Saturation 91.8 L ABG Base Excess -3.1 ABG Deoxyhemoglobin 8.1 H Oxyhemoglobin % 90.0 L Carboxyhemoglobin % 1.2 Methemoglobin % Sat 0.8 Calc Total Hemoglobin 12.7 L Sodium Potassium Chloride Carbon Dioxide Anion Gap BUN Creatinine BUN/Creatinine Ratio Random Glucose Serum Osmolality Calcium Total Bilirubin AST ALT Alkaline Phosphatase Creatine Kinase CK-MB (CK-2) CK-MB (CK-2) % Troponin I B-Natriuretic Peptide Serum Total Protein Albumin Globulin Albumin/Globulin Ratio TSH Thyroxine (T4) Urine Color Urine Appearance Urine pH Ur Specific Deary Urine Protein Urine Glucose (UA) Urine Ketones Urine Blood Urine Nitrite Urine Bilirubin Urine Urobilinogen Ur Leukocyte Esterase Urine RBC Urine WBC Ur Epithelial Cells Urine Bacteria Digoxin CXR showed RLL pneumonitis. wbc mildly elevated with 88% neutrophils. pO2 58%. Patient put on oxygen. Cultures taken and sent. Patient given Rocephin 1 gram IV x one and admitted for pneumonia/hypoxia. 07/17/18 15:27 Patient was in atrial fibrillation and his digoxin level was zero. He was started on a dose of IV digoxin in the E.D. and his rate decreased from 140s to 110s. Patient needs daily dosing of Digoxin to control his rate. Departure - Departure Clinical Impression: Pneumonia, Hypoxia, Atrial fibrillation Disposition: Admit Patient Condition: Fair Departure Forms: ED Discharge - Pt. Copy, Patient Portal Self Enrollment Diet: other - as per hospitalist Activity: increase activity as tolerated Referrals: STACIE MARTIN MD [Primary Care Provider] - 1-2 Weeks Home Medications: Ambulatory Orders Digoxin [Lanoxin] 0.125 mg PO DAILY 11/20/15 Ferrous Gluconate [Iron] 240 mg PO DAILY 11/20/15 Furosemide 40 mg PO BID 11/20/15 HYDROcodone 7.5MG/APAP 325MG [Elba 7.5/325] 1 mg PO Q8HR 11/20/15 Lisinopril 5 mg PO DAILY 11/20/15 Metoprolol Succinate [Metoprolol Succinate ER] 50 mg PO DAILY 11/20/15 Omeprazole 20 mg PO DAILY 11/20/15 Rivaroxaban [Xarelto] 20 mg PO BEDTIME 11/20/15 Simvastatin [Zocor] 20 mg PO DAILY 11/20/15 Trazodone HCl 50 mg PO BEDTIME 11/20/15 Albuterol Sulfate Nebs [Proventil Nebs] 2.5 mg INH TID #100 vial 11/23/17 Prednisone 10 mg PO QAM #10 tab 11/23/17 Temazepam [Restoril] 15 mg PO BEDTIME PRN #15 cap 11/23/17 levoFLOXacin [Levaquin] 500 mg PO DAILY #7 tab 11/23/17
[2018-07-17] MEDS ORDERED: cefTRIAXone SODIUM 1 GM in SODIUM CHL 0.9% 50ML MIN-BAG+ 50 ML IVPB ONE (15:12)
[2018-07-17] MEDS ORDERED: cefTRIAXone SODIUM 1 GM VIAL ONE ×2 (15:18→19:33)
[2018-07-17] MEDS ORDERED: SODIUM CHL 0.9% 50ML MIN-BAG+ 50 ML IVPB ONE ×2 (15:18→19:33)
--- NOTE | 2018-07-17 16:25 | HP ---
SUPERVISING PHYSICIAN: Holland Mercedes MD CHIEF COMPLAINT: Weakness, shortness of breath. . HISTORY OF PRESENT ILLNESS: This is an 88 year-old male patient who presented to the Emergency Room today with ongoing weakness, shortness of breath and a worsening productive cough. He noted that his strength had been decreasing over the last several weeks and for whatever reason he decided to stop taking all of his medications. He does take medication for chronic atrial fibrillation including digoxin and Xarelto. He noted that he does have chronic dyspnea but does not use oxygen at home and in the last several days has been having some mild hallucinations which are visual. He has been exhausted and not doing anything other than sleeping. He has been hospitalized once this year in November with a right lower lobe pneumonia. In the Emergency Room today his laboratory studies showed he had a leukocytosis of 11,000 with a left shift. His blood gases showed a mild hypoxemia with a P02 of 58, pH 7.39 with PC02 of 35, saturation 91% on 2 liters nasal cannula. Chemistries showed hyponatremia with increased creatinine at 1.31 and mild increase of his AST at 56. His BNP was 275, troponin 0.05 and TSH 6.41 with T4 of 2.28. He also takes medication for hypothyroidism. He underwood an atrial fibrillation history and on Xarelto but on his presentation his 12-lead was showing atrial fibrillation with a rate of 135 and rapid ventricular response. He was given digoxin at that point with 0.25 mg which did result in a decrease in his heart rate into the 110s to 120. He was no having any reported chest pain. He was noted to be afebrile at 100.4 but his blood pressure was showing to be stable at 120/84. He denied any chest pain but had again a productive cough that was showing to be purulent in nature and ongoing dyspnea that had been worsening, therefore a chest x-ray was completed showing he had a right lower lobe infiltrate. He was then started on antibiotics to include Rocephin initially after blood cultures were drawn and is now going to be admitted to medical/surgical floor for further evaluation and treatment of pneumonia community acquired. He was admitted in stable condition. PAST MEDICAL HISTORY: 1. Hypertension. 2. Hyperlipidemia. 3. Gastroesophageal reflux disease. 4. Chronic back pain. 5. Hypothyroidism. 6. Atrial fibrillation on Xarelto, beta vishal and digoxin. 7. History of congestive heart failure with mild diastolic dysfunction and ejection fraction noted on last echocardiogram of 65% in 2014. PAST SURGICAL HISTORY: 1. Appendectomy. 2. Cholecystectomy. 3. Laparoscopic knee surgery. 4. Lung bronchoscopy. OUTPATIENT MEDICATIONS: Awaiting updated list and verification on the electronic medical record.. ALLERGIES: AZITHROMYCIN. FAMILY HISTORY: Unknown as he is an orphan. SOCIAL HISTORY: He is and lives in [place]. He has one child. 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 He did smoke quite heavily but quit in 2004. He does not drink alcohol. He denies any illicit drug use. REVIEW OF SYSTEMS: GENERAL: Increasing weakness and fatigue with chills and fever. HEENT: Denies sore throat, nasal congestion, ear sruthi, vision changes. RESPIRATORY: As noted in history of present illness. Worsening dyspnea with productive purulent cough with some wheezing. CARDIOVASCULAR: History of atrial fibrillation but off medications for over two weeks with notable palpitations. No syncopal episodes, no chest pain. GASTROINTESTINAL: Notes that he doesn't eat and has been having some diarrhea but no abdominal pain. MUSCULOSKELETAL: Increasing weakness, ataxia with falls. INTEGUMENT: No reported lesions or rashes or skin breakdown. NEUROLOGIC: Denies seizures but has some mild ataxia with ambulation due to weakness. No syncopal episodes. Notes he has been having some visual hallucinations a times. GENITOURINARY: Negative hematuria, dysuria or polyuria. PHYSICAL EXAMINATION: VITAL SIGNS: Temperature on admission was 100.4, pulse 135, blood pressure 120/ 84, respirations 16, saturation 88% on room air at rest. Weight 93.7 kg. GENERAL: Patient is alert and appears to be in no acute distress, very pleasant. He does look dehydrated but well-nourished. HEENT: Tympanic membranes clear bilaterally. Oropharynx pink with notable dry mucous membranes, cracked lips, cracked tongue. NECK: Supple, non-tender, full range of motion. No jugular venous distention noted. CHEST: Notable wheezing in the right upper lung with right lower lung noted to be with some rhonchi with the left being fairly clear but diminished toward the bases. CARDIOVASCULAR: Regular rate and rhythm with rate of 108 on the monitor. GASTROINTESTINAL: Abdomen soft, non-tender. Bowel sounds are positive. EXTREMITIES: No cyanosis, clubbing or edema. NEUROLOGIC: Cranial nerves II through XII grossly intact. No notable motor or sensory deficits detected. He is alert. Facial features were symmetrical. Extraocular movement within normal limits. No notable nystagmus. INTEGUMENT: Skin warm and dry, pink. LABORATORY: CBC shows 11,000 white count with a left shift. Hemoglobin 14, hematocrit 41.7 with a macrocytic hyperchromic presentation. Coagulation studies showed PT of 11.3, PTT 35.5. Blood gas analysis showed pH of 7.39 with PC02 of 35, P02 of 58. Bicarb 20 with saturation 91% on 2 liters nasal cannula. Chemistries showed a low sodium of 132, potassium 3.8, BUN 31, creatinine 1.31, calcium 8.5, bilirubin elevated at 1.8, AST up to 56, alkaline phosphatase elevated at 194, troponin 0.05. BNP 275, TSH elevated at 6.41 with a low T4 at 2.48. Urinalysis showed 100 protein with 40 ketones, trace of blood and 2.0 urobilinogen. Microscopic showing to be within normal limits. Toxicology: digoxin level less than 0.3. MICROBIOLOGY: Influenza A and B by PCR was negative. Sputum culture pending. MRSA cultures pending. Blood cultures pending. RADIOLOGY: Chest x-ray per radiology interpretation of single-view chest showed a right basilar pneumonitis with a small pleural effusion, upper normal heart size. ASSESSMENT: 1. Right lower lobe pneumonia community acquired.. 2. History of chronic atrial fibrillation with a previous ablation on Xarelto , metoprolol and digoxin but currently not taking any medications as he stopped all those medications in the last several weeks, now showing a rapid ventricular response requiring reloading of digoxin and metoprolol. 3. Renal insufficiency due to prerenal state from moderate dehydration. 4. Dehydration, moderate due to poor oral intake. 5. History of congestive heart failure with mild diastolic dysfunction and ejection fraction noted on last echocardiogram of 65% in 2013 and elevated BNP on admission but no signs of current exacerbation. 6. Hypothyroidism not currently on supplementation with elevated TSH and decreased T4 requiring reinitiation of medication. 7. Hypoxemia due to right lower lobe pneumonia requiring oxygen supplementation and aggressive pulmonary hygiene. 8. Poor medical compliance with medication regimen as he has stopped all his medications within the last several weeks because he did not feel like taking them anymore. 9. Hypertension not on any current medication. 10. Hyperlipidemia. 11. Gastroesophageal reflux disease. 12. Electrolytes imbalance with a hyponatremia likely due to underlying pneumonia. 13. Increasing weakness, likely due to poor medical compliance, lack of nutritional intake with concerns for possible TIAs due to the noncompliance with his treatment with atrial fibrillation but currently not showing any focal neurological deficits. 14. Elevated liver function tests to include total bilirubin, AST, likely due to underlying malnutrition and dehydration. PLAN: The patient is going to be admitted to the medical/surgical floor for ongoing treatment of the right lower lobe pneumonia. He was initiated on Rocephin in the Emergency Room as well as we will continue; with doxycycline as he is allergic to azithromycin. At this point I do not think he has a high risk factor for staph or Pseudomonas. Therefore, we will continue with treatment and await sputum cultures to further target antibiotic therapy. Will tart him on some IV fluids, normal saline with 20 of potassium at 80 an hour as well as give him a banana bag with some folic acid daily. Will have to resume his medications once those have been updated and verified. Tonight I will start him on metoprolol 25 mg x1 dose tartrate, as well as continue with loading on digoxin at 1.25 mg tonight at 2200 as well as his Xarelto 20 mg. Will start him on aggressive pulmonary hygiene with Xopenex treatments and albuterol treatments as needed as well as Mucinex. He is having a fairly constant cough. Will try some Phenergan and codeine p.r.n. He will start his Xarelto tonight for DVT prophylaxis. I have already started him on Protonix for some GI protection. Will start him on a regular diet and need to get a nutritional consultation. I will get a physical therapy consultation in the morning. Anticipate his length of stay to be at least 2 to 3 days until he can get back on his medication regimen and his pneumonia shows improvement with treatment. In the morning we will repeat laboratory studies as well as chest x-ray. Until the patient is showing clinical improvement, continue his outpatient management and will continue to monitor and treat as needed. #[id number]/ MTDD
[2018-07-17] MEDS ORDERED: ALBUTEROL SULFATE 2.5 MG/3 ML VIAL NEB PRN (17:48)
[2018-07-17] MEDS ORDERED: ONDANSETRON INJ 4 MG/2 ML VIAL IV PRN (17:48)
[2018-07-17] MEDS: IV SET AND CAP CHANGE INJ INJ SCH (18:41)
[2018-07-17] MEDS ORDERED: SODIUM CHL 0.9% 250ML (AVIVA) 250 ML IVPB ONE (18:42)
[2018-07-17] MEDS ORDERED: DOXYCYCLINE HYCLATE IV 100 MG VIAL IVPB ONE ×2 (18:42→19:33)
[2018-07-17] MEDS: DOXYCYCLINE HYCLATE IV 100 MG in SODIUM CHLORIDE 0.9% 250ML 250 ML IVPB SCH (18:49)
[2018-07-17] MEDS ORDERED: PROMETHAZINE W/CODEINE SYR 5 ML UD PO PRN (19:28)
[2018-07-17] MEDS ORDERED: SODIUM CHLORIDE 0.9% 250ML 250 ML ONE (19:32)
[2018-07-17] MEDS: KCL 20 MEQ/NS 1,000 ML IVS PRN (20:47)
[2018-07-17] MEDS: guaiFENesin ER TAB 600 MG TAB PO SCH (20:48)
[2018-07-17] MEDS: OSELTAMIVIR 75 MG CAP PO SCH (20:49)
[2018-07-17] MEDS ORDERED: MULTIPLE VITAMIN 10 ML VIAL ONE (20:53)
[2018-07-17] MEDS ORDERED: SODIUM CHLORIDE 0.9% 1000ML 1,000 ML ONE (20:53)
[2018-07-17] MEDS: MULTIPLE VITAMIN INJ 10 ML, FOLIC ACID INJ 1 MG in SODIUM CHLORIDE 0.9% 1000ML 1,000 ML IVS SCH (20:54)
[2018-07-17] MEDS ORDERED: FOLIC ACID INJ 5 MG/ML VIAL ONE (20:56)
[2018-07-17] MEDS ORDERED: methylPREDNISolone SODIUM SUC 125 MG/2 ML VIAL IV ONE (20:57)
[2018-07-17] MEDS ORDERED: RIVAROXABAN 10 MG TAB PO ONE (21:00)
[2018-07-17] MEDS ORDERED: METOPROLOL TARTRATE 25 MG TAB PO ONE (21:00)
[2018-07-17] MEDS: SODIUM CHLORIDE 0.9% (FLUSH) 10 ML SYG IV PRN (22:08)
[2018-07-17] MEDS: LEVALBUTEROL NEBS 1.25 MG/3 ML VIAL INH SCH (23:40)
[2018-07-18] MEDS: cefTRIAXone SODIUM 1 GM in SODIUM CHL 0.9% 50ML MIN-BAG+ 50 ML IVPB SCH ×2 (02:43→16:16)
[2018-07-18] MEDS: PANTOPRAZOLE SODIUM IV 40 MG VIAL IV SCH (06:08)
[2018-07-18] MEDS: DOXYCYCLINE HYCLATE IV 100 MG in SODIUM CHLORIDE 0.9% 250ML 250 ML IVPB SCH ×2 (06:09→18:00)
--- NOTE | 2018-07-18 07:51 | RAD ---
EXAM DESCRIPTION: Chest,1 View CLINICAL HISTORY:88 years Male, Pneumonia Comparison: July 17, 2018 FINDINGS: Unchanged right basilar consolidation representing pneumonia. Follow-up recommended to ensure resolution. Possible small right pleural effusion. Left lung is clear. Cardiac silhouette is unchanged. Electronically signed by: Lázaro Celaya MD 07/18/2018 7:50 AM CDT
[2018-07-18] MEDS: LEVALBUTEROL NEBS 1.25 MG/3 ML VIAL INH SCH (08:35)
[2018-07-18] MEDS: guaiFENesin ER TAB 600 MG TAB PO SCH ×2 (09:15→20:49)
[2018-07-18] MEDS: OSELTAMIVIR 75 MG CAP PO SCH ×2 (09:15→20:50)
[2018-07-18] MEDS ORDERED: DIGOXIN INJ 0.5 MG/2 ML AMP IV ONE (10:30)
[2018-07-18] MEDS ORDERED: LISINOPRIL 5 MG TAB PO SCH (10:30)
[2018-07-18] MEDS ORDERED: DIGOXIN INJ 0.5 MG/2 ML AMP ONE (14:04)
[2018-07-18] MEDS: METOPROLOL TARTRATE 25 MG TAB PO SCH ×2 (14:13→18:00)
[2018-07-18] MEDS ORDERED: SODIUM CHL 0.9% 50ML MIN-BAG+ 50 ML IVPB ONE ×2 (14:47→19:44)
[2018-07-18] MEDS ORDERED: cefTRIAXone SODIUM 1 GM VIAL ONE ×2 (14:48→19:45)
[2018-07-18] MEDS: LEVALBUTEROL NEBS 1.25 MG/3 ML VIAL NEB SCH (16:03)
--- NOTE | 2018-07-18 16:54 | PN ---
DATE: 07/18/18 SUPERVISING PHYSICIAN: Holland Mercedes MD SUBJECTIVE: The patient notes he feels a little bit better today but still continues to have significant shortness of breath with any exertion effort. He did work with physical therapy but was noted to be weak. He has been afebrile, continues with a productive cough. He has had no chest pain or complaints of nausea or vomiting. OBJECTIVE: VITAL SIGNS: Temperature max 98.9, pulse 110, blood pressure 131/77, respirations 18, saturation 94% on 2 liters nasal cannula. I&O: Positive balance of 470 with 720 in and 250 out. Weight 96.6 kg. GENERAL: the patient is resting comfortably in a bedside chair. He is alert and appears to be in no cute distress, able to talk in full sentences with no obvious shortness of breath compared to admission. CHEST: Lung sounds on the show to be clear, slightly diminished towards the bases. Right lung has notable rhonchi heard on the bases and more prominent on the posterior lateral aspect but no obvious wheezing today. HEART: Slightly irregular rate and rhythm. Continues to show some mild tachycardia but more controlled rate than on admission. Bedside monitor showing rate of 110. ABDOMEN: Soft, non-tender with positive bowel sound. EXTREMITIES: No cyanosis, clubbing, or edema. NEUROLOGIC: He is alert and oriented x3. LABORATORY: White count now normalized to 6,800, hemoglobin 13, hematocrit 39.4. RBC indices continue to show a macrocytic hyperchromic presentation with platelet count 214,000, differential today continues to show a left shift. Chemistries show normal electrolytes with potassium at 4.0, sodium 138. BUN 36 , creatinine 1.08 with calcium 8.4. Repeat digoxin this morning 0.7. MICROBIOLOGY: Sputum culture pending. Blood cultures remain negative. Influenza A and B negative by PCR on admission. RADIOLOGY: Chest x-ray continues to show a right-sided infiltrate essentially unchanged from previous exam on admission with left lung remaining clear with no consolidation noted and per radiology interpretation there was not of right basilar consolidation representing pneumonia. ASSESSMENT: 1,. Right lower lobe pneumonia community acquired.. 2. History of chronic atrial fibrillation with a previous ablation on Xarelto , metoprolol and digoxin but currently not taking any medications as he stopped all those medications in the last several weeks, now showing a rapid ventricular response requiring reloading of digoxin and metoprolol. 3. Renal insufficiency due to prerenal state from moderate dehydration. 4. Dehydration, moderate due to poor oral intake. 5. History of congestive heart failure with mild diastolic dysfunction and ejection fraction noted on last echocardiogram of 65% in 2013 and elevated BNP on admission but no signs of current exacerbation. 6. Hypothyroidism not currently on supplementation with elevated TSH and decreased T4 requiring reinitiation of medication. 7. Hypoxemia due to right lower lobe pneumonia requiring oxygen supplementation and aggressive pulmonary hygiene. 8. Poor medical compliance with medication regimen as he has stopped all his medications within the last several weeks because he did not feel like taking them anymore. 9. Hypertension not on any current medication. 10. Hyperlipidemia. 11. Gastroesophageal reflux disease. 12. Electrolytes imbalance with a hyponatremia likely due to underlying pneumonia. 13. Increasing weakness, likely due to poor medical compliance, lack of nutritional intake with concerns for possible TIAs due to the noncompliance with his treatment with atrial fibrillation but currently not showing any focal neurological deficits. 14. Elevated liver function tests to include total bilirubin, AST, likely due to underlying malnutrition and PLAN: The patient will continue with antibiotic therapy with Rocephin and doxycycline. Will low transverse uterine incision with aggressive pulmonary hygiene. He continues on banana bags daily with folic acid. I have started him back on his Xarelto, metoprolol and lisinopril. Will continue to await final list of updated medications and restart these once available. Will continue to monitor patient until he clinically improves well enough to transition to p.o. medication and outpatient management. Until then, will monitor and treat as needed. #[id number] [facility]
[2018-07-18] MEDS ORDERED: SODIUM CHLORIDE 0.9% 250ML 250 ML ONE ×2 (17:46→19:44)
[2018-07-18] MEDS ORDERED: DOXYCYCLINE HYCLATE IV 100 MG VIAL IVPB ONE ×2 (17:47→19:45)
[2018-07-18] MEDS ORDERED: traZODone HCL 50 MG TAB ONE (19:45)
[2018-07-18] MEDS ORDERED: SODIUM CHLORIDE 0.9% 1000ML 1,000 ML ONE (19:45)
[2018-07-18] MEDS ORDERED: MULTIPLE VITAMIN 10 ML VIAL ONE (19:46)
[2018-07-18] MEDS: DOXEPIN HCL PO SCH (20:49)
[2018-07-18] MEDS: MULTIPLE VITAMIN INJ 10 ML, FOLIC ACID INJ 1 MG in SODIUM CHLORIDE 0.9% 1000ML 1,000 ML IVS SCH (20:50)
[2018-07-18] MEDS ORDERED: traZODone HCL 50 MG TAB PO SCH (21:00)
[2018-07-19] MEDS: LEVALBUTEROL NEBS 1.25 MG/3 ML VIAL NEB SCH ×3 (00:10→16:40)
[2018-07-19] MEDS: cefTRIAXone SODIUM 1 GM in SODIUM CHL 0.9% 50ML MIN-BAG+ 50 ML IVPB SCH ×2 (03:23→15:51)
[2018-07-19] MEDS: KCL 20 MEQ/NS 1,000 ML IVS PRN (04:25)
[2018-07-19] MEDS: DOXYCYCLINE HYCLATE IV 100 MG in SODIUM CHLORIDE 0.9% 250ML 250 ML IVPB SCH ×2 (06:15→18:18)
[2018-07-19] MEDS: PANTOPRAZOLE SODIUM IV 40 MG VIAL IV SCH (06:15)
--- NOTE | 2018-07-19 06:33 | RAD ---
EXAM DESCRIPTION: Chest,2 Views CLINICAL HISTORY:88 years Male, RLL pneumonia Comparison: July 18, 2018 FINDINGS: Unchanged right basilar consolidation representing pneumonia. Possible trace right pleural effusion. Cardiac silhouette unchanged. Left lung is clear. Electronically signed by: Lázaro Celaya MD 07/19/2018 6:32 AM COLD STRIP ROLLER
[2018-07-19] MEDS: BUDESONIDE/FORMOTEROL 160/4.5 60 PUFF/6 GM INH INH SCH (08:17)
[2018-07-19] MEDS: SIMVASTATIN 20 MG TAB PO SCH (09:37)
[2018-07-19] MEDS: METOPROLOL SUCCINATE XL 50 MG TAB PO SCH (09:37)
[2018-07-19] MEDS: OSELTAMIVIR 75 MG CAP PO SCH ×2 (09:37→20:38)
[2018-07-19] MEDS: guaiFENesin ER TAB 600 MG TAB PO SCH ×2 (09:37→20:38)
[2018-07-19] MEDS: LISINOPRIL 5 MG TAB PO SCH (09:38)
[2018-07-19] MEDS: methylPREDNISolone SODIUM SUC 40 MG/ML VIAL IV SCH ×2 (12:59→20:38)
[2018-07-19] MEDS: LEVOTHYROXINE SODIUM 0.1 MG TAB PO SCH (13:58)
[2018-07-19] MEDS ORDERED: SODIUM CHL 0.9% 50ML MIN-BAG+ 50 ML IVPB ONE ×2 (15:26→19:35)
[2018-07-19] MEDS ORDERED: cefTRIAXone SODIUM 1 GM VIAL ONE ×2 (15:26→19:35)
[2018-07-19] MEDS ORDERED: SODIUM CHLORIDE 0.9% 250ML 250 ML ONE ×2 (18:10→19:34)
[2018-07-19] MEDS ORDERED: DOXYCYCLINE HYCLATE IV 100 MG VIAL IVPB ONE ×2 (18:10→19:35)
[2018-07-19] MEDS: METOPROLOL TARTRATE 25 MG TAB PO SCH (19:31)
[2018-07-19] MEDS ORDERED: SODIUM CHLORIDE 0.9% 1000ML 1,000 ML ONE (19:35)
[2018-07-19] MEDS ORDERED: MULTIPLE VITAMIN 10 ML VIAL ONE (19:36)
[2018-07-19] MEDS: DOXEPIN HCL PO SCH (20:38)
[2018-07-19] MEDS: traZODone HCL 50 MG TAB PO PRN (20:38)
[2018-07-19] MEDS: MULTIPLE VITAMIN INJ 10 ML, FOLIC ACID INJ 1 MG in SODIUM CHLORIDE 0.9% 1000ML 1,000 ML IVS SCH (20:38)
[2018-07-20] MEDS: cefTRIAXone SODIUM 1 GM in SODIUM CHL 0.9% 50ML MIN-BAG+ 50 ML IVPB SCH ×2 (03:20→14:30)
[2018-07-20] MEDS: KCL 20 MEQ/NS 1,000 ML IVS PRN ×2 (05:15→22:55)
[2018-07-20] MEDS: PANTOPRAZOLE SODIUM IV 40 MG VIAL IV SCH (06:16)
[2018-07-20] MEDS: DOXYCYCLINE HYCLATE IV 100 MG in SODIUM CHLORIDE 0.9% 250ML 250 ML IVPB SCH ×2 (06:17→17:55)
[2018-07-20] MEDS ORDERED: ASPIRIN (CHEWABLE) 81 MG TAB ONE (06:57)
[2018-07-20] MEDS: methylPREDNISolone SODIUM SUC 40 MG/ML VIAL IV SCH (08:26)
[2018-07-20] MEDS: METOPROLOL SUCCINATE XL 50 MG TAB PO SCH (08:27)
[2018-07-20] MEDS: LISINOPRIL 5 MG TAB PO SCH (08:27)
[2018-07-20] MEDS: LEVOTHYROXINE SODIUM 0.1 MG TAB PO SCH (08:27)
[2018-07-20] MEDS: OSELTAMIVIR 75 MG CAP PO SCH ×2 (08:27→20:39)
[2018-07-20] MEDS: guaiFENesin ER TAB 600 MG TAB PO SCH ×2 (08:27→20:39)
[2018-07-20] MEDS: SIMVASTATIN 20 MG TAB PO SCH (08:27)
[2018-07-20] MEDS: LEVALBUTEROL NEBS 1.25 MG/3 ML VIAL NEB SCH ×4 (08:31→23:57)
[2018-07-20] MEDS: BUDESONIDE/FORMOTEROL 160/4.5 60 PUFF/6 GM INH INH SCH (08:32)
[2018-07-20] MEDS: ACETAMINOPHEN 325 MG TAB PO PRN (10:12)
[2018-07-20] MEDS ORDERED: ENOXAPARIN SODIUM 40 MG/0.4 ML SYG SUBCU SCH (11:30)
--- NOTE | 2018-07-20 12:01 | PN ---
SUPERVISING PHYSICIAN: Mary Mercedes MD DATE: 07/19/18 SUBJECTIVE: The patient reports he feels pretty crappy today. He also notes he is significantly weak and is concerned because he states he is not even able to get off the toilet without assistance. He continues with a significant cough , but has been helped somewhat with cough suppressants. He is not having any chest pains. He has been afebrile. He has had no nausea or vomiting. OBJECTIVE: VITAL SIGNS: Temperature 98. Pulse 102. Blood pressure 142/81. Respirations 18. Saturation 94% on room air at rest. I&Os show positive balance of 1945 with 3220 in, 1275 out. GENERAL: The patient is resting in bed. He appears to be in no acute distress. He is alert. CHEST: Lung sounds are significant diminished throughout with some slight wheezing heart in the apices, no rhonchi or rales. HEART: Slightly irregular rate and rhythm, but controlled with bedside monitor showing rate of 101. ABDOMEN: Obese, but Soft, nontender with positive bowel sounds. EXTREMITIES: No cyanosis, clubbing, or edema. NEUROLOGIC: He is alert and oriented x3. LABORATORY: White count now 8,000, hemoglobin 612., hematocrit 37.9, platelet count 246,000. Differential does show a left shift. Chemistries show normal electrolytes with BUN 42, creatinine 1.14, glucose 135. MICROBIOLOGY: Sputum culture pending. MRSA culture pending. Blood cultures negative at 24 hours. RADIOLOGY: Repeat chest x-ray this morning per radiologic interpretation with no significant change with right lower lobe pneumonia. ASSESSMENT: 1. Right lower lobe pneumonia, community acquired, showing slow clinical response to current treatment plan, requiring initiation of corticosteroids and continued aggressive bronchial hygiene. 2. History of chronic atrial fibrillation with a previous ablation on chronic Xarelto, as well as rate control with metoprolol and digoxin having no been on medications prior to admission, requiring reinitiation of medications and close monitoring with the patient having shown a rapid ventricular response on admission, but now controlled. 3. Renal insufficiency due to prerenal azotemic state from moderate dehydration, improving with fluids. 4. Moderate dehydration due to poor oral intake, requiring ongoing fluid therapy. 5. History of congestive heart failure with mild diastolic dysfunction and ejection fraction noted on last echocardiogram of 65% in 2013 and elevated BNP on admission, but no signs of current exacerbation. 6. Hypothyroidism, previously on supplementation but sopped multiple weeks previous, now showing elevated TSH and decreased T4, requiring reinitiation of medication. 7. Hypoxemia on room air due to right lower lobe pneumonia, requiring ongoing oxygen supplementation and aggressive pulmonary hygiene. 8. Poor medical compliance with medication regimen as he has stopped all his medications within the last several weeks because he did not feel like taking them anymore, now requiring reinitiation of medication regimen with close monitoring. 9. Hypertension, stable with reinitiation of medications. 10. Gastroesophageal reflux disease, stable. 11. Electrolyte imbalance with a hyponatremia on admission, likely due to underlying pneumonia, showing improvement with fluids. 12. Increasing weakness, due to poor medical compliance, poor nutrition and lack of activity, resulting in significant deconditioning, exacerbated by underlying illness to include atrial fibrillation, poor medical compliance and current treatment of right lower lobe pneumonia. 13. Elevated liver function tests including total bilirubin, AST, due to underlying malnutrition and dehydration, continue to monitor, showing improvement with fluids. PLAN: The patient will continue with antibiotic therapy at this point with Rocephin and doxycycline. His white count is normalized and he continues to show some improvement, however, he is showing significant decreased tidal volumes as he has had decreased breath sounds and some slight wheezing. Therefore, we will start him on scheduled Solu-Medrol 40 mg q.12h. for 3 doses and monitor closely. I have resumed his medications. We will need to follow those closely. We will go ahead and stop his banana bags as he is getting close to being euvolemic. He still has poor oral intake. Therefore, we will continue with maintenance fluids and he will certainly need multiple consultations including social, nutritional. He does live with his , but due to his ongoing worsening deconditioning, certainly will benefit from physical therapy evaluation and possible ongoing physical therapy to be decided prior to discharge. He will need to be assessed for probable home O2 with ambulation studies if he is strong enough. We will anticipate at least another 24 to 48 hours of aggressive management. Until he can transition to p.o. medication and outpatient management, we will continue to monitor and treat as needed. #[id number] [facility]
[2018-07-20] MEDS ORDERED: DIGOXIN INJ 0.5 MG/2 ML AMP IV ONE (12:56)
[2018-07-20] MEDS ORDERED: SODIUM CHL 0.9% 50ML MIN-BAG+ 50 ML IVPB ONE ×2 (14:19→19:17)
[2018-07-20] MEDS ORDERED: cefTRIAXone SODIUM 1 GM VIAL ONE ×2 (14:19→19:18)
[2018-07-20] MEDS ORDERED: predniSONE 20 MG TAB PO SCH (16:00)
[2018-07-20] MEDS ORDERED: SODIUM CHLORIDE 0.9% 250ML 250 ML ONE ×2 (17:49→22:37)
[2018-07-20] MEDS ORDERED: DOXYCYCLINE HYCLATE IV 100 MG VIAL IVPB ONE ×2 (17:50→22:37)
[2018-07-20] MEDS: IV SET AND CAP CHANGE INJ INJ SCH (18:12)
--- NOTE | 2018-07-20 19:50 | PN ---
DATE: 07/20/18 SUPERVISING PHYSICIAN: Grupo Ramirez M.D. SUBJECTIVE: The patient notes that he feels a little bit better today. He continues to have shortness of breath with ambulation and is still weak, but was able to actually work with physical therapy. He continues with a cough but is not quite as aggressive as previously. He has had no nausea or vomiting. He has been afebrile. OBJECTIVE: VITAL SIGNS: Temperature 97.6, pulse 74, blood pressure 153/83, respirations 20, O2 saturation of 91% on room air. I's and O's show a positive balance of 1510 with 2260 in, 750 out. He has had 1 bowel movement. Weight is 97.6 kg. GENERAL: The patient is resting comfortably. Appears to be in no acute distress. He is alert. CHEST: Lung sounds on the left are clear. Right continues with some rhonchi heard to the lower right lung francois more prominent on the posterior aspect with just very faint wheezing continues, inspiratory. HEART: Slightly irregular rate and rhythm but continues to be controlled with heart rate showing to be between 80 and 90 on the monitor and atrial fibrillation. ABDOMEN: Obese, soft, non-tender. Positive bowel sounds. EXTREMITIES: No cyanosis, clubbing or edema. NEUROLOGIC: He remains alert and oriented times three. LABORATORY: CBC remains stable with a 12.8 hemoglobin, 39.1 hematocrit, white count 6,700. Left shift now is near resolution back to normal baseline. Chemistries show normal electrolytes with a normal anion gap at 13.4, BUN is down to 36, creatinine 1.03 with calcium 8.2. Digoxin continues to be low at 0.5. MICROBIOLOGY: MRSA surveillance culture was negative for MRSA. Sputum culture is still pending. Blood cultures remain negative after 3 days. RADIOLOGY: Chest was not repeated today. Plan to repeat one tomorrow. ASSESSMENT: 1. Right lower lobe pneumonia, community acquired, continues to show slow response but improvement and continuation of corticosteroids required as well as more aggressive bronchial hygiene. The patient on parenteral antibiotic therapy. 2. Chronic atrial fibrillation having a previous ablation and on chronic Xarelto, with rate control with metoprolol, digoxin and Amiodarone with the patient having stopped all medications in the recent months requiring reinitiation of medications and close monitoring to include laboratory studies to ensure the patient remains in a controlled rate. 3. Renal insufficiency now back to baseline after IV fluids. 4. Moderate dehydration due to poor oral intake, requiring ongoing fluid therapy but improving. 5. History of congestive heart failure with mild diastolic dysfunction and ejection fraction noted on last echocardiogram of 65% ejection fraction in 2013 and having an elevated BNP on admission, but no signs of current exacerbation. 6. Hypothyroidism, previously on supplementation but now showing elevation of TSH and decreased T4 due to the patient stopping his medications requiring reinitiation of medication regimen. 7. Hypoxemia on room air on admission due to right lower lobe pneumonia, requiring ongoing oxygen therapy and supplementation and aggressive pulmonary hygiene. 8. Poor medical compliance with medication regimen as the patient stopped all his medications within the last month or so because he did not feel like taking them anymore, requiring reinitiation of medications and close monitoring. 9. Hypertension, stable with reinitiation of medications. 10. Gastroesophageal reflux disease, stable. 11. Electrolyte imbalance with a hyponatremia on admission now back to baseline after fluids felt to be due to the underlying pneumonia. 12. Significant deconditioning due to poor medical compliance, poor nutrition and lack of activity, and exacerbated by underlying atrial fibrillation and current pneumonia requiring physical therapy evaluation and treatment. 13. Elevated liver function tests including bilirubin and AST, due to underlying malnutrition and dehydration, continue to monitor, showing improvements back to baseline with fluids. PLAN: Will continue with antibiotic therapy. Sputum culture continues to be pending. He remains on Rocephin and doxycycline. He did work with Physical Therapy. Recommendations were that he could possibly go home once medically stable with home health, physical therapy and a rolling walker. Dr. Mercedes did talk to the patient and we need probably tomorrow to try to get a consultation with [facility], although the patient voices to me that he does not want to do that. We need to readdress that in the morning. Nena is working on [facility] for discharge planning. He told me he has a walker at home. He will need to do some ambulation studies tomorrow to ensure that he does need oxygen on discharge or if he does, qualifications are documented and oxygen secured. He will need assistance with getting a nebulizer machine as he notes that his is broken. He will need ongoing physical therapy at discharge certainly as he has had multiple falls at home, but has shown some improvement here in the hospital. In regards to his medications, I have restarted all of his medications, including his digoxin, Amiodarone, metoprolol and Xarelto will start tomorrow. He is on Lovenox at this point. Will anticipate hopefully discharging tomorrow. Until he can transition to p.o. medication and outpatient management, will continue to monitor and treat as needed. #[id number] [facility]
[2018-07-20] MEDS: traZODone HCL 50 MG TAB PO PRN (20:39)
[2018-07-21] MEDS: cefTRIAXone SODIUM 1 GM in SODIUM CHL 0.9% 50ML MIN-BAG+ 50 ML IVPB SCH ×2 (02:57→15:09)
[2018-07-21] MEDS: DOXYCYCLINE HYCLATE IV 100 MG in SODIUM CHLORIDE 0.9% 250ML 250 ML IVPB SCH ×2 (05:41→17:36)
[2018-07-21] MEDS: PANTOPRAZOLE SODIUM IV 40 MG VIAL IV SCH (06:00)
[2018-07-21] MEDS: SODIUM CHLORIDE 0.9% (FLUSH) 10 ML SYG IV PRN (06:00)
[2018-07-21] MEDS ORDERED: POTASSIUM CHLORIDE 10 MEQ TAB PO ONE (06:54)
[2018-07-21] MEDS ORDERED: predniSONE 20 MG TAB ONE (06:54)
[2018-07-21] MEDS ORDERED: RIVAROXABAN 10 MG TAB ONE (06:54)
[2018-07-21] MEDS: AMIODARONE HCL 200 MG TAB PO SCH ×2 (08:06→20:41)
[2018-07-21] MEDS: predniSONE 20 MG TAB PO SCH (08:06)
[2018-07-21] MEDS: OSELTAMIVIR 75 MG CAP PO SCH ×2 (08:07→20:41)
[2018-07-21] MEDS: LEVOTHYROXINE SODIUM 0.1 MG TAB PO SCH (08:07)
[2018-07-21] MEDS: METOPROLOL SUCCINATE XL 50 MG TAB PO SCH (08:07)
[2018-07-21] MEDS: guaiFENesin ER TAB 600 MG TAB PO SCH ×2 (08:07→20:42)
[2018-07-21] MEDS: LISINOPRIL 5 MG TAB PO SCH (08:07)
[2018-07-21] MEDS: SIMVASTATIN 20 MG TAB PO SCH (08:07)
[2018-07-21] MEDS: POTASSIUM CHLORIDE 10 MEQ TAB PO SCH (08:36)
--- NOTE | 2018-07-21 08:38 | RAD ---
EXAM DESCRIPTION: Chest,2 Views CLINICAL HISTORY: RLL Pneumonia COMPARISON: July 19, 2018 TECHNIQUE: PA/lateral FINDINGS: The left lung remains essentially clear. Residual infiltrate in the right lung base right lower lobe is present but slightly cleared and improved from examination two days earlier. The right upper lung field remains clear. No significant pleural effusions are seen. The heart is normal in size and shape with no evidence of vascular congestion. The ramiro and mediastinum demonstrate normal contours. Calcified and tortuous aortic arch and descending aorta is noted. The bony spine and chest wall is normal for age in appearance. IMPRESSION: 1. Persistent right lower lobe consolidation with slight improvement from study two days earlier. 2. Normal-sized heart and vascularity and clear left lung. Electronically signed by: Dimas Posada MD 07/21/2018 8:36 AM PATIENT FLOW COORDINATOR
[2018-07-21] MEDS ORDERED: RIVAROXABAN 10 MG TAB PO SCH ×2 (09:00)
[2018-07-21] MEDS ORDERED: FUROSEMIDE 40 MG TAB PO SCH (09:00)
[2018-07-21] MEDS: LEVALBUTEROL NEBS 1.25 MG/3 ML VIAL NEB SCH ×2 (09:03→15:06)
[2018-07-21] MEDS: BUDESONIDE/FORMOTEROL 160/4.5 60 PUFF/6 GM INH INH SCH (09:03)
--- NOTE | 2018-07-21 10:20 | PN ---
SUPERVISING PHYSICIAN: Grupo Ramirez MD DATE: 07/21/18 SUBJECTIVE: The patient is sitting up in his chair visiting with friends. He still feels quite weak, but his shortness of breath is improving. He denies any chest pain, nausea, vomiting, constipation or diarrhea. We discussed his home health and he has agreed to do that at this point. He does not want to do [facility]. He has also agreed to continue his previous home medications once he is discharged. [facility] will be his home health agency. OBJECTIVE: VITAL SIGNS: Afebrile. Heart rate 80 with atrial fibrillation on the secured entrance monitor. Blood pressure 158/85. Respirations 20. O2 saturation 91% on 2 liters nasal cannula. RESPIRATORY: Expiratory wheezing in the left lung francois. He is diminished at the base of the right side of his lung. CARDIAC: Regular rate and irregular rhythm. GASTROINTESTINAL: Abdomen is soft, nondistended, nontender. Bowel sounds are positive. EXTREMITIES: No cyanosis or clubbing. There is a trace of pedal edema bilaterally. NEUROLOGIC: Awake, alert and oriented times three. LABORATORY: There are no labs to report at this time. His chest x-ray showed persistent right lower lobe consolidation with slight improvement from study two days earlier, normal sized heart and vascularity with a clear left lung. All other labs and films have been reviewed via the EMR. ASSESSMENT: 1. Right lower lobe pneumonia, community acquired, continuing to show slow response but has improved with continuation of corticosteroids. He is on doxycycline and Rocephin. 2. Chronic atrial fibrillation having a previous ablation and on chronic Xarelto, with rate control with metoprolol, digoxin and amiodarone. He had stopped all home medications and those have been resumed today. 3. Renal insufficiency, back to baseline. 4. Moderate dehydration, improved. 5. History of congestive heart failure with mild diastolic dysfunction and ejection fraction noted on last echocardiogram of 65% ejection fraction in 2014 report. He did have a slightly elevated BNP on admission, but he has no signs of current exacerbation. 6. Hypothyroidism. His TSH was elevated on admission and his medications have been resumed. 7. Hypoxemia, continuing to require O2. 8. Poor medical compliance. He stopped his medications at home and those have been resumed. 9. Hypertension, stable after reinitiation of medications. 10. Gastroesophageal reflux disease, stable. 11. Electrolyte imbalance, improved. 12. Significant deconditioning due to poor medical compliance, poor nutrition and lack of activity. 13. Elevated liver functions, continuing to show improvement. PLAN: We will continue present supportive care. We will continue his antibiotics and monitor his culture results. He has agreed to [facility] and we will need to make sure they evaluate him for physical therapy. All of his medicines have been restarted over the last two days. I will do an ambulation study for home O2 qualifications to see if he needs that upon discharge. I will also repeat his lab and chest x-ray tomorrow. He is presently on oral prednisone. If he continues with his wheezing in spite of his therapy, he may require an additional dose of IV steroids. Hopefully he can be discharged tomorrow or the next day with close followup with his primary care physician, Dr. Mercedes. We will continue to monitor the patient closely and follow as needed. #[id number] [facility]
[2018-07-21] MEDS ORDERED: SODIUM CHL 0.9% 50ML MIN-BAG+ 50 ML IVPB ONE ×2 (15:07→19:25)
[2018-07-21] MEDS ORDERED: cefTRIAXone SODIUM 1 GM VIAL ONE ×2 (15:08→19:26)
[2018-07-21] MEDS: ACETAMINOPHEN 325 MG TAB PO PRN (15:09)
[2018-07-21] MEDS ORDERED: SODIUM CHLORIDE 0.9% 250ML 250 ML ONE ×2 (15:54→19:24)
[2018-07-21] MEDS ORDERED: DOXYCYCLINE HYCLATE IV 100 MG VIAL IVPB ONE ×2 (15:55→19:25)
[2018-07-21] MEDS: FUROSEMIDE 40 MG TAB PO SCH (17:36)
[2018-07-21] MEDS: PRIMIDONE 50 MG TAB PO SCH (20:42)
[2018-07-21] MEDS: traZODone HCL 50 MG TAB PO PRN (20:43)
[2018-07-22] MEDS: LEVALBUTEROL NEBS 1.25 MG/3 ML VIAL NEB SCH ×3 (00:28→16:38)
[2018-07-22] MEDS: cefTRIAXone SODIUM 1 GM in SODIUM CHL 0.9% 50ML MIN-BAG+ 50 ML IVPB SCH ×2 (02:31→15:00)
[2018-07-22] MEDS: DOXYCYCLINE HYCLATE IV 100 MG in SODIUM CHLORIDE 0.9% 250ML 250 ML IVPB SCH ×2 (05:25→17:48)
[2018-07-22] MEDS: PANTOPRAZOLE SODIUM IV 40 MG VIAL IV SCH (06:09)
--- NOTE | 2018-07-22 07:14 | RAD ---
EXAM: Two view chest. INDICATION: Pneumonia. COMPARISON: Chest x-ray: 07/21/2018. FINDINGS: Cardiac silhouette: At the upper limit of normal in size [place]: Unremarkable. Lobar consolidation: Right lower lobe Pleural effusion: None. Pneumothorax: None. Other: None. Bones: Unremarkable. Other: None. IMPRESSION: Grossly stable right lower lobe pneumonia Electronically signed by: Art Bermeo MD 07/22/2018 7:13 AM [facility] Workstation: [id number]
[2018-07-22] MEDS: AMIODARONE HCL 200 MG TAB PO SCH ×2 (08:03→20:59)
[2018-07-22] MEDS: FUROSEMIDE 40 MG TAB PO SCH ×2 (08:03→17:48)
[2018-07-22] MEDS: METOPROLOL SUCCINATE XL 50 MG TAB PO SCH (08:04)
[2018-07-22] MEDS: LISINOPRIL 5 MG TAB PO SCH (08:04)
[2018-07-22] MEDS: guaiFENesin ER TAB 600 MG TAB PO SCH ×2 (08:04→20:59)
[2018-07-22] MEDS: OSELTAMIVIR 75 MG CAP PO SCH ×2 (08:04→20:59)
[2018-07-22] MEDS: LEVOTHYROXINE SODIUM 0.1 MG TAB PO SCH (08:04)
[2018-07-22] MEDS: RIVAROXABAN 10 MG TAB PO SCH (08:04)
[2018-07-22] MEDS: SIMVASTATIN 20 MG TAB PO SCH (08:04)
[2018-07-22] MEDS: POTASSIUM CHLORIDE 10 MEQ TAB PO SCH (08:04)
[2018-07-22] MEDS: predniSONE 20 MG TAB PO SCH (08:04)
[2018-07-22] MEDS: BUDESONIDE/FORMOTEROL 160/4.5 60 PUFF/6 GM INH INH SCH (08:22)
[2018-07-22] MEDS ORDERED: SODIUM CHL 0.9% 50ML MIN-BAG+ 50 ML IVPB ONE ×2 (14:29→19:51)
[2018-07-22] MEDS ORDERED: cefTRIAXone SODIUM 1 GM VIAL ONE ×2 (14:30→19:53)
[2018-07-22] MEDS ORDERED: SODIUM CHLORIDE 0.9% 250ML 250 ML ONE ×2 (16:46→19:51)
[2018-07-22] MEDS ORDERED: DOXYCYCLINE HYCLATE IV 100 MG VIAL IVPB ONE ×2 (16:47→19:52)
[2018-07-22] MEDS: SODIUM CHLORIDE 0.9% (FLUSH) 10 ML SYG IV PRN (20:09)
[2018-07-22] MEDS: PRIMIDONE 50 MG TAB PO SCH (20:59)
[2018-07-22] MEDS: traZODone HCL 50 MG TAB PO PRN (20:59)
--- NOTE | 2018-07-22 23:44 | PN ---
DATE: 07/22/18 SUPERVISING PHYSICIAN: Grupo Ramirez M.D. SUBJECTIVE: The patient is sitting up in his chair in his hospital room. He has walked several times in the hallways today. He still complains of being very weak and requiring a walker, but he is off of his oxygen this evening. Earlier today he required oxygen. His only complaints at this time are fatigue and some mild shortness of breath with exertion, but it has improved quite a bit. No complaints of chest pain, nausea, vomiting, diarrhea or constipation. Again, we talked about his discharge plan and he will take his medications. He did ask if we could give him some help with his . She has Alzheimer's and he has a very difficult time taking care of her. He agreed that maybe home health would be appropriate for her, too. OBJECTIVE: VITAL SIGNS: He is afebrile, heart rate 87, blood pressure 160/73, respiratory rate 18, O2 sat 93% on room air at rest. RESPIRATORY: Diminished at the bases, otherwise essentially clear to auscultation. CARDIAC: Regular rate and rhythm, atrial fibrillation on the cardiac rehab nurse. Earlier today his heart rate did get up to 116. GASTROINTESTINAL: Abdomen is soft, nondistended, non-tender. Bowel sounds are positive. EXTREMITIES: No clubbing, cyanosis or edema. NEUROLOGIC: He is awake, alert and oriented times three. LABORATORY: WBCs are normal at 6.7 with hemoglobin 13.6, hematocrit 41.4. Neutrophils are still elevated at 81.9%. Electrolytes are within normal limits except calcium is slightly low at 8.3. Creatinine has gone up slightly to 1.16. Alkaline phosphatase is 141. Digoxin level this morning was 0.5. Chest x-ray shows a grossly stable right lower lobe pneumonia. All other labs and films have been reviewed via the EMR. ASSESSMENT: 1. Right lower lobe pneumonia, community acquired. He continues to show slow progress. This afternoon is the first time he is on room air. His corticosteroids have been changed to p.o. and he is presently on doxycycline and Rocephin. 2. Chronic atrial fibrillation with a previous ablation on chronic Xarelto with rate control with metoprolol and amiodarone. He has received Digoxin in the hospital but it has not been continued as a routine medication. 3. Renal insufficiency at baseline. 4. Moderate dehydration, improved. 5. History of congestive heart failure with mild diastolic dysfunction and ejection fraction noted on last echocardiogram of 65% ejection fraction in 2014 report. He did have a slightly elevated BNP on admission, but he has no signs of current exacerbation. 6. Hypothyroidism. His TSH was elevated on admission and his medications have been resumed. 7. Hypoxemia, continuing to require O2. 8. Poor medical compliance. He stopped his medications at home and those have been resumed. 9. Hypertension that is mostly stable, although he did have an elevated blood pressure today. Will need to continue to monitor. 10. Gastroesophageal reflux disease, stable. 11. Electrolyte imbalance, improved. 12. Significant deconditioning due to poor medical compliance, poor nutrition and lack of activity. 13. Elevated liver functions, continuing to show improvement. PLAN: Will continue present supportive care. I spoke with his primary care physician, Dr. Mercedes, and he felt that we should not restart his digoxin at this time. He also has required oxygen until today, but this afternoon he has been on room air and his ambulation study showed that his O2 sats have stayed in the low 90s with oxygen supplementation. All of his routine medications from home have been restarted with the exception of his digoxin and as previously stated, Dr. Mercedes would like that to be discontinued. Will monitor his blood pressure overnight as he may need an adjustment in his blood pressure medicine. Also, watch his heart rate as his heart rate was elevated several times today to the 110s. Hopefully he can be discharged tomorrow with [facility] plus physical therapy. As a side note, due to the patient's weakened state and deconditioning as well as his has dementia, it is recommended that his also be placed on home health and I will let Dr. Mercedes know. Otherwise, no labs for in the morning. Will monitor him closely and follow as needed. Dr. Ramirez is the collaborating physician available for consultation. #[id number] [facility]
[2018-07-23] MEDS: cefTRIAXone SODIUM 1 GM in SODIUM CHL 0.9% 50ML MIN-BAG+ 50 ML IVPB SCH (02:57)
[2018-07-23] MEDS: PANTOPRAZOLE SODIUM IV 40 MG VIAL IV SCH (05:59)
[2018-07-23] MEDS: DOXYCYCLINE HYCLATE IV 100 MG in SODIUM CHLORIDE 0.9% 250ML 250 ML IVPB SCH (06:02)
[2018-07-23] MEDS: LEVALBUTEROL NEBS 1.25 MG/3 ML VIAL NEB SCH ×2 (07:48)
[2018-07-23] MEDS: BUDESONIDE/FORMOTEROL 160/4.5 60 PUFF/6 GM INH INH SCH (07:48)
[2018-07-23 07:51] VITALS: O2SAT 95
[2018-07-23] MEDS: AMIODARONE HCL 200 MG TAB PO SCH (09:42)
[2018-07-23] MEDS: predniSONE 20 MG TAB PO SCH (09:42)
[2018-07-23] MEDS: FUROSEMIDE 40 MG TAB PO SCH (09:42)
[2018-07-23] MEDS: RIVAROXABAN 10 MG TAB PO SCH (09:43)
[2018-07-23] MEDS: LEVOTHYROXINE SODIUM 0.1 MG TAB PO SCH (09:45)
[2018-07-23] MEDS: LISINOPRIL 5 MG TAB PO SCH (09:45)
[2018-07-23] MEDS: OSELTAMIVIR 75 MG CAP PO SCH (09:45)
[2018-07-23] MEDS: guaiFENesin ER TAB 600 MG TAB PO SCH (09:45)
[2018-07-23] MEDS: METOPROLOL SUCCINATE XL 50 MG TAB PO SCH (09:45)
[2018-07-23] MEDS: SIMVASTATIN 20 MG TAB PO SCH (09:48)
[2018-07-23] MEDS: POTASSIUM CHLORIDE 10 MEQ TAB PO SCH (09:48)
[2018-07-23] MEDS: ACETAMINOPHEN 325 MG TAB PO PRN (11:58)
[2018-07-23 13:26] VITALS: BP 135/81; TEMP 98.4
--- NOTE | 2018-07-23 14:18 | DS ---
SUPERVISING PHYSICIAN: Grupo Ramirez MD DISCHARGE DIAGNOSIS: 1. Right lower lobe pneumonia, community acquired. He was treated in the hospital with breathing treatments, corticosteroid, doxycycline and Rocephin. 2. Chronic atrial fibrillation with a previous ablation on chronic Xarelto with rate control with metoprolol and amiodarone. He has received Digoxin in the hospital but it has not been continued as a routine medication. 3. Renal insufficiency at baseline. 4. Moderate dehydration, improved. 5. History of congestive heart failure with mild diastolic dysfunction and ejection fraction noted on last echocardiogram of 65% ejection fraction in 2014 report. He did have a slightly elevated BNP on admission, but he has no signs of current exacerbation. 6. Hypothyroidism. His TSH was elevated on admission and his medications have been resumed. 7. Hypoxemia, continuing to require O2. 8. Poor medical compliance. He stopped his medications at home and those have been resumed. 9. Hypertension that is mostly stable, although he did have an elevated blood pressure today. Will need to continue to monitor. 10. Gastroesophageal reflux disease, stable. 11. Electrolyte imbalance, improved. 12. Significant deconditioning due to poor medical compliance, poor nutrition and lack of activity. 13. Elevated liver functions, continuing to show improvement. HISTORY OF PRESENT ILLNESS: This is an 88-year-old male patient who presented to the Emergency Room on date of admission with ongoing weakness, shortness of breath and a worsening productive cough. His strength had been significantly decreasing for several weeks prior to his admission to the Emergency Room. At that time, he decided to stop taking all of his medications. He does have chronic atrial fibrillation and was on Xarelto and several months ago was actually on digoxin. He also has chronic dyspnea but does not use oxygen at home. He has been exhausted and not doing anything other than sleeping. He was hospitalized in November with a right lower lobe pneumonia. In the Emergency Room, his laboratory studies showed leukocytosis of 11,000 with a left shift. His blood gases showed a mild hypoxemia with a p02 of 58, pH 7.39 with pC02 of 35, saturation 91% on 2 liters nasal cannula. Chemistries showed hyponatremia with increased creatinine at 1.31 and increase of his AST at 56. His BNP was 275, troponin 0.05 and TSH 6.41 with T4 of 2.28. He also was on medication for hypothyroidism. He was in atrial fibrillation per 12-lead with a rate of 135. He was given digoxin at that point with 0.25 mg and his heart rate did drop down to the 110s to 120. There was no report of any chest pain. He was febrile at 100.4, but his blood pressure was stable at 120/84. He had a productive cough that was purulent in nature and ongoing dyspnea. Chest x-ray was completed showing a right lower lobe infiltrate. He was then started on antibiotics to include Rocephin initially after blood cultures were drawn and was be admitted to medical/surgical floor for further evaluation and treatment of pneumonia, community acquired. He was admitted in stable condition. HOSPITAL COURSE: After admission to the Floor, he was given doxycycline as he is allergic to azithromycin. He was also put on nebulizer treatments as well as IV fluids. His medications were resumed. His primary care physician is Dr. Mercedes and those were verified with his office. He also was given several additional doses of digoxin. His heart rate did come down to the low 100s. Initially, his metoprolol was re-started and then two days ago, his amiodarone was started. He was also placed on Xarelto as well as his thyroid medications. We did not resume digoxin as Dr. Mercedes's last medical record showed Dr. Florian, his distresser, had taken him off of his digoxin. He was transitioned to p.o. steroids and was on oxygen up until yesterday. He did an ambulation study yesterday and was cleared to go home without oxygen. He will be discharged home today in stable condition with close followup with his primary care physician, Dr. Jose Mercedes, as well as have [facility]. Lab studies showed an initial WBC of 11,000. Yesterday, it was 6,700. Hemoglobin and hematocrit are stable at 13.6 and 41.4. Platelet count 270. He continues to have a mild left shift on his differential. Blood sugars have been slightly elevated, most likely due to his corticosteroid use. He was on sliding scale NovoLog insulin and his blood sugars in the last 24 hours have run between 131 and 207. His electrolytes are basically within normal limits except his alkaline phosphatase is elevated at 141. AST is normalized at 25. His initial UA had a urine protein of 100, urine ketones of 40, trace of intact urine blood and 2 urine bilirubin. His digoxin was on the low side and yesterday was 0.5. 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 He has been afebrile for the last 48 hours. His blood pressure has been stable at 132/ 81. Respiratory rate this morning is 20. O2 saturation is 95% on room air. His preliminary blood cultures showed no growth. His final sputum report showed a few mixed normal respiratory melba. His chest x-ray from yesterday showed grossly stable right lower lobe pneumonia. DISCHARGE PLAN: The patient will be discharged home in stable condition. He will have [facility] and physical therapy. It is noted that his has Alzheimer's and it may be beneficial for her to have [facility]. I will let Dr. Mercedes's office know that a consult may be needed for the patient's . He is to resume his previous diet, increase his activity as tolerated and as per physical therapy. He has a followup appointment with Dr. Mercedes on 07/28/18 at 10:45. He also has an appointment with Dr. Florian, his distresser, on 07/30/15 at 11:40. His has picked up his nebulizer machine at [facility] and in addition to his routine medications, he will be discharged on albuterol nebulizers, doxycycline and a prednisone taper. He is to return to the hospital or call Dr. Mercedes' s for any problems or complications. DISCHARGE MEDICATIONS: 1. Furosemide. 2. Lisinopril. 3. Metoprolol succinate. 4. Simvastatin. 5. Hydrocodone. 6. Trazodone. 7. Omeprazole. 8. Amiodarone. 9. Primidone. 10. Levothyroxine. 11. Symbicort. 12. Doxepin. 13. Potassium. 14. Trazodone. 15. Albuterol sulfate. 16. Doxycycline. 17. Prednisone taper. 18. Xarelto. #[id number] [facility]
== END 2018-07-23 14:45 | disposition home health service (06) | DRG 194 ==
LOC: ER 13:12 → MS 16:24
PROVIDERS: ADMIT Nurse Practitioner Family; ATTEND Nurse Practitioner Acute Care
DX: J18.9 Pneumonia, unspecified organism (principal); I50.30 Unspecified diastolic (congestive) heart failure; E87.1 Hypo-osmolality and hyponatremia; E86.0 Dehydration; I48.2 Chronic atrial fibrillation; Z79.01 Long term (current) use of anticoagulants; N28.9 Disorder of kidney and ureter, unspecified; I11.0 Hypertensive heart disease with heart failure; E03.9 Hypothyroidism, unspecified; R09.02 Hypoxemia; K21.9 Gastro-esophageal reflux disease without esophagitis; E78.5 Hyperlipidemia, unspecified; G89.29 Other chronic pain; M54.9 Dorsalgia, unspecified; Z91.14 Patient's other noncompliance with medication regimen; Z88.1 Allergy status to other antibiotic agents

== ENCOUNTER 2018-08-25 11:05 | Inpatient (IN) | payer MEDICARE ==
[2018-08-25] MEDS ORDERED: cefTRIAXone SODIUM 2 GM in SODIUM CHL 0.9% 100ML MINI-BAG 100 ML IVPB ONE (11:39)
[2018-08-25] MEDS ORDERED: SODIUM CHLORIDE 0.9% 1000ML 1,000 ML IVS ONE (11:39)
--- NOTE | 2018-08-25 11:49 | ED.PDOC ---
History of Present Illness - General Chief Complaint: Respiratory Problem Stated Complaint: SOB Time Seen by Provider: 08/25/18 11:39 Source: patient Exam Limitations: no limitations - History of Present Illness Initial Comments: PT SENT TO THE ED FROM DR. CARBONE OFFICE FOR SOB. PT REPORTS COUGH AND PROGRESSIVELY WORSENING SOB FOR THE PAST 3 WEEKS. PT HAS A HISTORY OF AFIB AND CHF AND STATES HE HAS NOT BEEN TAKING HIS LASIX. Timing/Duration: getting worse Severity: severe Improving Factors: immobilization Worsening Factors: movement Allergies/Adverse Reactions: Allergies Azithromycin Adverse Reaction (Verified 07/17/18 17:07) Abdominal Pain. Home Medications: Ambulatory Orders Furosemide 40 mg PO BID 11/20/15 HYDROcodone 7.5MG/APAP 325MG [[place] 7.5/325] 7.5 mg PO Q8HR PRN 11/20/15 Lisinopril 5 mg PO DAILY 11/20/15 Metoprolol Succinate [Metoprolol Succinate ER] 50 mg PO DAILY 11/20/15 Omeprazole 20 mg PO DAILY 11/20/15 Simvastatin [Zocor] 20 mg PO DAILY 11/20/15 Trazodone HCl 50 mg PO BEDTIME 11/20/15 Albuterol Sulfate Nebs [Proventil Nebs] 2.5 mg INH Q4H PRN 07/18/18 Amiodarone HCl 200 mg PO BID 07/18/18 Doxepin HCl (Sleep) [Silenor] 3 mg PO BEDTIME 07/18/18 Levothyroxine Sodium [Synthroid] 0.1 mg PO QAM 07/18/18 Potassium 10 meq PO DAILY 07/18/18 Primidone 50 mg PO BEDTIME 07/18/18 Symbicort 160-4.5 Mcg/Act 2 puff INH DAILY 07/18/18 traZODone HCL 50 tablet PO BEDTIME PRN 07/18/18 Albuterol Sulfate Nebs [Proventil Nebs] 2.5 mg INH QID #100 vial 07/23/18 Doxycycline Hyclate 100 mg PO BID #14 tab 07/23/18 Prednisone See Taper PO DAILY #30 tab 07/23/18 Rivaroxaban [Xarelto] 20 mg PO DAILY #30 tablet 07/23/18 Review of Systems - Review of Systems Constitutional: Denies: chills, fever EENTM: Denies: nose congestion, throat pain Respiratory: States: see HPI, cough, short of breath Cardiology: States: chest pain. Denies: palpitations Gastrointestinal/Abdominal: Denies: nausea, vomiting Genitourinary: Denies: dysuria, frequency Musculoskeletal: Denies: joint pain, joint swelling Skin: Denies: lesions, rash Neurological: Denies: headache, numbness Endocrine: States: no symptoms reported Hematologic/Lymphatic: States: no symptoms reported Past Medical History (General) - Patient Medical History Hx Seizures: No Hx Stroke: No Hx Asthma: No Hx of COPD: Yes Hx Cardiac Disorders: Yes - Hyperlipidemia Hx Congestive Heart Failure: No Hx Pacemaker: No Hx Hypertension: Yes Hx Thyroid Disease: Yes Hx Diabetes: No Hx Gastroesophageal Reflux: Yes Hx MRSA: No MRSA Source:: Wound Surgical History: appendectomy, cholecystectomy - Vaccination History Hx Tetanus, Diphtheria Vaccination: - unknown Hx Influenza Vaccination: No Hx Pneumococcal Vaccination: No - Social History Hx Tobacco Use: Yes - Quit 2004 Hx Chewing Tobacco Use: No Hx Alcohol Use: No Hx Substance Use: No Hx Substance Use Treatment: No Hx Depression: No Hx Physical Abuse: No Hx Emotional Abuse: No - Female History Patient : No Family Medical History - Family History Mother Family History: Unknown Living Status: Physical Exam - Physical Exam General Appearance: Alert, Obvious distress, Well Developed, Well Groomed, Well Hydrated Eyes, Ears, Nose, Throat Exam: normal ENT inspection Neck: full range of motion Respiratory: rales, rhonchi, wheezing, other - TACHYPNEIC Cardiovascular/Chest: tachycardia, irregularly irregular Gastrointestinal/Abdominal: non tender, soft Extremity: pedal edema Neurologic: alert, normal mood/affect, oriented x 3 Skin Exam: normal color, warm/dry Progress - Progress Progress: 08/25/18 13:49 PT RESTING COMFORTABLY ON RE-EVAL. HR IN THE LOW 100S AFTER 25MG IV CARDIZEM. WHEEZING IMPROVED AFTER DUONEB. PT REPORTS IMPROVEMENT IN SYMPTOMS. - Results/Orders Results/Orders: Laboratory Tests 08/25/18 08/25/18 08/25/18 11:45 12:08 12:08 WBC 6.9 RBC 3.86 L Hgb 12.5 L Hct 38.2 L MCV 99.1 H MCH 32.3 H MCHC 32.7 L RDW 15.1 H Plt Count 190 MPV 8.0 Absolute Neuts (auto) 5.80 Absolute Lymphs (auto) 0.40 L Absolute Monos (auto) 0.70 Absolute Eos (auto) 0.00 Absolute Basos (auto) 0.00 Neutrophils % 83.5 H Lymphocytes % 6.1 L Monocytes % 9.7 H Eosinophils % 0.2 L Basophils % 0.5 pCO2 pO2 HCO3 ABG pH ABG O2 Saturation ABG Base Excess ABG Deoxyhemoglobin Oxyhemoglobin % Carboxyhemoglobin % Methemoglobin % Sat Calc Total Hemoglobin Sodium 135 Potassium 4.4 Chloride 105 Carbon Dioxide 20 L Anion Gap 14.4 BUN 19 H Creatinine 1.07 BUN/Creatinine Ratio 17.8 Random Glucose 116 H Serum Osmolality 273.3 L Lactic Acid 1.7 Calcium 8.1 L Total Bilirubin 1.0 AST 28 ALT 26 Alkaline Phosphatase 90 Creatine Kinase 38 CK-MB (CK-2) 1.8 CK-MB (CK-2) % Not Reportable Troponin I 0.03 Serum Total Protein 6.1 L Albumin 2.9 L Globulin 3.2 Albumin/Globulin Ratio 0.9 L 08/25/18 12:10 WBC RBC Hgb Hct MCV MCH MCHC RDW Plt Count MPV Absolute Neuts (auto) Absolute Lymphs (auto) Absolute Monos (auto) Absolute Eos (auto) Absolute Basos (auto) Neutrophils % Lymphocytes % Monocytes % Eosinophils % Basophils % pCO2 28 L pO2 71 L HCO3 19.2 ABG pH 7.450 ABG O2 Saturation 96.8 ABG Base Excess -3.2 ABG Deoxyhemoglobin 3.1 Oxyhemoglobin % 94.6 Carboxyhemoglobin % 1.1 Methemoglobin % Sat 1.2 Calc Total Hemoglobin 11.7 L Sodium Potassium Chloride Carbon Dioxide Anion Gap BUN Creatinine BUN/Creatinine Ratio Random Glucose Serum Osmolality Lactic Acid Calcium Total Bilirubin AST ALT Alkaline Phosphatase Creatine Kinase CK-MB (CK-2) CK-MB (CK-2) % Troponin I Serum Total Protein Albumin Globulin Albumin/Globulin Ratio - EKG/XRAY/CT EKG: Atrial, Fibrillation - WITH RVR @ 141BPM, LAD, POOR R WAVE PROGRESSION, no ST T wave changes, Unchanged from 07/17/18 XRAY: chest - RLL INFILTRATE, R PLEURAL EFFUSION, NO CHF, PER RAD Departure - Departure Clinical Impression: Atrial fibrillation with rapid ventricular response, Pneumonia, Hypoxia, COPD with acute exacerbation Time of Disposition: 13:52 Disposition: Admit Patient Departure Forms: ED Discharge - Pt. Copy, Patient Portal Self Enrollment Referrals: STACIE MARTIN MD [Primary Care Provider] - 1-2 Weeks Home Medications: Ambulatory Orders Furosemide 40 mg PO BID 11/20/15 HYDROcodone 7.5MG/APAP 325MG [[place] 7.5/325] 7.5 mg PO Q8HR PRN 11/20/15 Lisinopril 5 mg PO DAILY 11/20/15 Metoprolol Succinate [Metoprolol Succinate ER] 50 mg PO DAILY 11/20/15 Omeprazole 20 mg PO DAILY 11/20/15 Simvastatin [Zocor] 20 mg PO DAILY 11/20/15 Trazodone HCl 50 mg PO BEDTIME 11/20/15 Albuterol Sulfate Nebs [Proventil Nebs] 2.5 mg INH Q4H PRN 07/18/18 Amiodarone HCl 200 mg PO BID 07/18/18 Doxepin HCl (Sleep) [Silenor] 3 mg PO BEDTIME 07/18/18 Levothyroxine Sodium [Synthroid] 0.1 mg PO QAM 07/18/18 Potassium 10 meq PO DAILY 07/18/18 Primidone 50 mg PO BEDTIME 07/18/18 Symbicort 160-4.5 Mcg/Act 2 puff INH DAILY 07/18/18 traZODone HCL 50 tablet PO BEDTIME PRN 07/18/18 Albuterol Sulfate Nebs [Proventil Nebs] 2.5 mg INH QID #100 vial 07/23/18 Doxycycline Hyclate 100 mg PO BID #14 tab 07/23/18 Prednisone See Taper PO DAILY #30 tab 07/23/18 Rivaroxaban [Xarelto] 20 mg PO DAILY #30 tablet 07/23/18 Decision To Admit - Decistion To Admit Decision to Admit Reason: Admit from ER Decision to Admit Date: 08/25/18 Decision to Admit Time: 13:52 - CASE DISCUSSED WITH CRISTEL SAUCEDA NP WHO AGREES TO ADMIT
[2018-08-25] MEDS ORDERED: SODIUM CHL 0.9% 100ML MINI-BAG 100 ML IVPB ONE (11:53)
--- NOTE | 2018-08-25 12:20 | RAD ---
EXAM DESCRIPTION: Chest,1 View CLINICAL HISTORY: Shortness of breath, cough COMPARISON: Chest radiograph dated July 22, 2018 TECHNIQUE: Single portable upright frontal view the chest FINDINGS: Mild calcific atherosclerosis and tortuosity noted of the thoracic aorta. Cardiac silhouette shows borderline cardiomegaly. Pulmonary vascularity is within normal limits. There is increased opacity in the right lower lung zone, slightly more progressed compared to July 22, 2018, concerning for progressive infectious/inflammatory processes such as pneumonia. Of the right costophrenic angle, compatible with small right-sided pleural effusion. No pneumothorax on the left. Right lung apex extends above beyond imaged field of view. Visualized osseous structures show no destructive lesions. IMPRESSION: 1. Increased opacity in the right lower lung zone, slightly more progressed compared to July 22, 2018, concerning for progressive infectious/inflammatory processes such as pneumonia. 2. Small right-sided pleural effusion. 3. Cardiomegaly without congestive heart failure. 4. Other findings as above. Electronically signed by: Jose Frederick MD 08/25/2018 12:19 PM [facility]
[2018-08-25] MEDS ORDERED: IPRATROPIUM/ALBUTEROL 3 ML VIAL NEB ONE (12:25)
[2018-08-25] MEDS: SODIUM CHLORIDE 0.9% (FLUSH) 10 ML SYG IV PRN (12:43)
[2018-08-25] MEDS ORDERED: methylPREDNISolone SODIUM SUC 125 MG/2 ML VIAL IV ONE (13:46)
[2018-08-25] MEDS ORDERED: SODIUM CHLORIDE 0.9% (FLUSH) 10 ML SYG IV PRN (15:03)
[2018-08-25] MEDS ORDERED: ALBUTEROL SULFATE 2.5 MG/3 ML VIAL NEB PRN (15:03)
[2018-08-25] MEDS ORDERED: VANCOMYCIN PER PHARMACY INJ SCH (15:30)
[2018-08-25] MEDS ORDERED: ENOXAPARIN SODIUM 40 MG/0.4 ML SYG SUBCU SCH (15:30)
--- NOTE | 2018-08-25 16:37 | HP ---
SUPERVISING PHYSICIAN: Holland Mercedes M.D. CHIEF COMPLAINT: Shortness of breath. HISTORY OF PRESENT ILLNESS: This is an 88 year-old male patient who went to Dr. Mercedes's office today with complaints of shortness of breath. He has had a cough and shortness of breath for the last 3 weeks. It should be noted he was recently admitted with right lower lobe pneumonia and discharged back on July 23. At the clinic he was noted to be pretty short of breath and sounded pretty bad, therefore he was then sent to the Emergency Room. In the Emergency Room his workup included a chest x-ray and labs as well. His white count was remarkably normal, however he was shown to have a right lower lobe infiltrate and a right pleural effusion, but no pulmonary vascular congestion. He had also had atrial fibrillation there. He was given 25 mg of Cardizem IV times 1 and subsequently 15 more mg later given the Cardizem. This did control his heart rate. For these reasons he was referred for admission for chronic obstructive pulmonary disease exacerbation and right lower lobe pneumonia. At the time of examination, the patient is dyspneic at rest. He has significant wheezing and rhonchi, but O2 saturations are now improved after breathing treatments and steroids. Initially he was 85% on room air. Blood cultures had been drawn as well. I have added antibiotic coverages for healthcare associated pneumonia due to his recent admission as well as the sputum culture as well. PAST MEDICAL HISTORY: 1. Hypertension. 2. Hyperlipidemia. 3. Gastroesophageal reflux disease. 4. Chronic back pain. 5. Hypothyroidism. 6. Atrial fibrillation on Xarelto. 7. Diastolic heart failure. 8. Chronic obstructive pulmonary disease. PAST SURGICAL HISTORY: 1. Appendectomy. 2. Cholecystectomy. 3. Laparoscopic knee surgery. 4. Lung bronchoscopy. CURRENT MEDICATIONS: Please see Med. Rec. list once updated in the computer. ALLERGIES: AZITHROMYCIN. FAMILY HISTORY: Apparently he is an orphan so that is not known. SOCIAL HISTORY: and lives in [place]. Has 1 child. 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 He smoked heavily but quit in 2004. No alcohol. No illicit drugs. REVIEW OF SYSTEMS: CONSTITUTIONAL: No fever or chills. Positive for weakness. HEENT: No headaches, vision changes, ear pain, nasal congestion or throat pain. RESPIRATORY: Positive for cough. No hemoptysis. No pleuritic chest pain but significant dyspnea. CARDIOVASCULAR: Positive for atrial fibrillation but no active palpitations even with his RVR. No chest pain. He does have peripheral edema. GASTROINTESTINAL: No nausea, vomiting, diarrhea, constipation or abdominal pain. GENITOURINARY: No dysuria, frequency or flank pain. MUSCULOSKELETAL: No joint pain, joint swelling or muscle cramps. He has had some falls in the past. HEMATOLOGIC: He does bruise easily and he is on anticoagulation, but no transfusion reaction. NEUROLOGIC: No seizures, paresthesias or syncope. ENDOCRINE: No polydipsia, polyuria or polyphagia. No heat or cold intolerance. PHYSICAL EXAMINATION: VITAL SIGNS: Blood pressure 157/99, heart rate 98, respiratory rate 20, temperature 98.3, oxygen saturation 96%. GENERAL: Mr. Mcintyre is an 88 year-old male patient in moderate respiratory distress at this time. CHEST: Lungs are diffusely wheezing with rhonchi bilaterally. CARDIOVASCULAR: The patient has an irregular rate and rhythm but at this point it is in the 90s. Normal S1 and S2. ABDOMEN: Soft. Positive bowel sounds. EXTREMITIES: Lower extremities have ankle edema 2+. Capillary refill is less than 2 seconds. Pulses 2+. NEUROLOGIC: The patient is alert and oriented. LABORATORY: Normal white count. Hemoglobin 12.6, hematocrit 38.2, platelet count 190. Arterial blood gas with a pH of 7.45, pCO2 of 28, pO2 of 71, [id number], base excess is -3.2, O2 saturation is 96.8 and this was on supplemental oxygen. Chemistries show sodium 135, potassium 4.4, chloride 105, CO2 is 20, BUN 19, creatinine 1.07, glucose 116, calcium 8.1. Lactate is 1.7. Chest x-ray with a right lower lobe infiltrate with pleural effusion. ASSESSMENT: 1. Recurrent right lower lobe pneumonia versus ongoing right lower lobe pneumonia. 2. Chronic obstructive pulmonary disease exacerbation. 3. Volume depletion. 4. Atrial fibrillation with rapid ventricular response. 5. Hypertension. PLAN: At this time the patient will be treated as he has healthcare associated pneumonia. I have sputum culture and blood cultures going, but he will be treated with vancomycin and Cefepime. Will also treat his COPD with IV corticosteroids and scheduled nebulizer therapies. I am going to resume his Xarelto for anticoagulation and I have initiated as PPI for GI ulcer prophylaxis. Will recheck labs as well as x-ray tomorrow. Monitor cultures as they are returned to us. #[id number] [facility]
[2018-08-25] MEDS: IPRATROPIUM/ALBUTEROL 3 ML VIAL INH SCH ×2 (16:40→20:30)
[2018-08-25] MEDS ORDERED: VANCOMYCIN HCL INJ 1,000 MG VIAL IVPB ONE (17:27)
[2018-08-25] MEDS ORDERED: VANCOMYCIN HCL INJ 500 MG VIAL ONE (17:27)
[2018-08-25] MEDS ORDERED: SODIUM CHLORIDE 0.9% 250ML 250 ML ONE (17:27)
[2018-08-25] MEDS: VANCOMYCIN HCL INJ 1,000 MG, VANCOMYCIN HCL INJ 500 MG in SODIUM CHLORIDE 0.9% 250ML 25... IVPB SCH (18:01)
[2018-08-25] MEDS: IV SET AND CAP CHANGE INJ INJ SCH (18:01)
[2018-08-25] MEDS ORDERED: diltiaZEM DRIP 125 MG/25 ML VIAL IVPB ONE (18:12)
[2018-08-25] MEDS ORDERED: SODIUM CHLORIDE 0.9% 100ML 100 ML IVPB ONE (18:12)
[2018-08-25] MEDS: diltiaZEM DRIP 125 MG in SODIUM CHLORIDE 0.9% 100ML 100 ML IVPB SCH (18:21)
[2018-08-25] MEDS: methylPREDNISolone SODIUM SUC 125 MG/2 ML VIAL IV SCH (20:03)
[2018-08-25] MEDS ORDERED: PRIMIDONE 50 MG TAB PO ONE (20:11)
[2018-08-25] MEDS: AMIODARONE HCL 200 MG TAB PO SCH (20:43)
[2018-08-25] MEDS ORDERED: PRIMIDONE 50 MG PO SCH (21:00)
[2018-08-25] MEDS ORDERED: SODIUM CHL 0.9% 50ML MIN-BAG+ 50 ML IVPB ONE (23:01)
[2018-08-25] MEDS ORDERED: CEFEPIME 2 GM VIAL ONE (23:01)
[2018-08-25] MEDS: CEFEPIME 2 GM in SODIUM CHL 0.9% 50ML MIN-BAG+ 50 ML IVPB SCH (23:04)
[2018-08-26] MEDS: IPRATROPIUM/ALBUTEROL 3 ML VIAL INH SCH ×7 (00:45→23:40)
[2018-08-26] MEDS: methylPREDNISolone SODIUM SUC 125 MG/2 ML VIAL IV SCH ×4 (01:23→20:01)
[2018-08-26] MEDS: SODIUM CHLORIDE 0.9% (FLUSH) 10 ML SYG IV PRN (01:24)
[2018-08-26] MEDS: OMEPRAZOLE CAP 20 MG CAP PO SCH (06:13)
[2018-08-26] MEDS: BENZONATATE PERLES 100 MG CAP PO SCH ×4 (09:36→20:35)
[2018-08-26] MEDS: AMIODARONE HCL 200 MG TAB PO SCH ×2 (09:36→20:35)
[2018-08-26] MEDS: LISINOPRIL 5 MG TAB PO SCH (09:37)
[2018-08-26] MEDS: LEVOTHYROXINE SODIUM 0.1 MG TAB PO SCH (09:39)
[2018-08-26] MEDS: METOPROLOL SUCCINATE XL 50 MG TAB PO SCH (09:41)
--- NOTE | 2018-08-26 09:46 | RAD ---
EXAM DESCRIPTION: Chest,1 View CLINICAL HISTORY: Pneumonia COMPARISON: August 25, 2018 FINDINGS: Single AP portable upright view of the chest continues to show enlargement of the cardiomediastinal silhouette. There is shift of the cardiac mediastinal silhouette towards the right with decreased volume in the right lung. Mild shift of the trachea towards the right is seen. Groundglass opacification in the medial aspect of the right mid to upper chest is seen. Interstitial infiltrate and airspace consolidation in the right hilar to lower lobe region is seen. There is blunting of the right costophrenic angle. Mild blunting of left costophrenic angle and indistinctness of the hemidiaphragm is seen with mild increased interstitial markings in the left lung base. Calcified lymph nodes in the right suprahilar and paratracheal region are seen. IMPRESSION: Volume loss in the right hemithorax is seen suggesting atelectasis in the right lower and now right upper lobes. Persistent infiltrate suggesting pneumonia versus aspiration or atelectasis in the right lower lobe is again seen. Small bilateral pleural effusions are seen. Question developing infiltrate or atelectasis in the left lung base. Electronically signed by: Hansel Wolfe MD 08/26/2018 9:44 AM [employer]
[2018-08-26] MEDS: CEFEPIME 2 GM in SODIUM CHL 0.9% 50ML MIN-BAG+ 50 ML IVPB SCH ×2 (12:00→23:34)
[2018-08-26] MEDS ORDERED: SODIUM CHLORIDE 0.9% 100ML 100 ML IVPB ONE (12:43)
[2018-08-26] MEDS ORDERED: diltiaZEM DRIP 125 MG/25 ML VIAL IVPB ONE (12:45)
[2018-08-26] MEDS: diltiaZEM DRIP 125 MG in SODIUM CHLORIDE 0.9% 100ML 100 ML IVPB SCH (12:51)
[2018-08-26] MEDS: VANCOMYCIN HCL INJ 1,000 MG, VANCOMYCIN HCL INJ 500 MG in SODIUM CHLORIDE 0.9% 250ML 25... IVPB SCH (13:00)
[2018-08-26] MEDS ORDERED: SODIUM CHL 0.9% 50ML MIN-BAG+ 50 ML IVPB ONE ×2 (13:56→20:21)
[2018-08-26] MEDS ORDERED: VANCOMYCIN HCL INJ 500 MG VIAL ONE ×2 (13:56→20:20)
[2018-08-26] MEDS ORDERED: SODIUM CHLORIDE 0.9% 250ML 250 ML ONE ×2 (13:56→20:21)
[2018-08-26] MEDS ORDERED: CEFEPIME 2 GM VIAL ONE ×2 (13:56→20:21)
[2018-08-26] MEDS ORDERED: VANCOMYCIN HCL INJ 1,000 MG VIAL IVPB ONE ×2 (13:57→20:22)
--- NOTE | 2018-08-26 14:33 | PN ---
SUPERVISING PHYSICIAN: Mary Mercedes MD DATE: 08/26/18 SUBJECTIVE: The patient has shown minimal response to treatment overnight and continues to have some obvious dyspnea even at rest. He was started on Cardizem drip last night and has now better rate control showing a sinus arrhythmia with PACs and junctional rhythm. He denies any chest pains, but has chest discomfort when he has coughing episodes. OBJECTIVE: VITAL SIGNS: Temperature 97.6. Pulse 94. Blood pressure 143/81. Respirations 16. Saturation 98% on nasal cannula at rest on 2 liters. GENERAL: The patient is resting comfortably. He has a very flat affect. He is obviously short of breath with extended speech even on oxygen. CHEST: Lung sounds remain diminished throughout with some faint wheezing heard on inspiratory effort no notable rhonchi. HEART: Irregular rate and rhythm in the 90s to 110s, currently on Cardizem drip. ABDOMEN: Soft, nontender. Positive bowel sounds. EXTREMITIES: Lower extremities show a trace edema. NEUROLOGIC: Alert and oriented times three. LABORATORY: White count 4,200, hemoglobin 11.8, hematocrit 35.0, platelet count 179,000. Differential does continue to show a left shift. Chemistries show normal electrolytes with BUN 26, creatinine 1.04, magnesium 1.8, calcium 8.1, lactic acid 1.4, TSH normal at 2.38 with T3 43, T4 7.5. MICROBIOLOGY: Sputum culture pending. Blood cultures remain negative at 24 hours. RADIOLOGY: Single view chest per radiologic interpretation shows volume loss in the right hemithorax suggesting atelectasis in the right lower and now right upper lobes. There is note of persistent infiltrate suggesting pneumonia versus aspiration or atelectasis in the right lower lobe again seen. There are small bilateral pleural effusions noted. There is a question of developing infiltrate or atelectasis in the left lung base. ASSESSMENT: 1. Recurring right lower lobe pneumonia. 2. Chronic obstructive pulmonary disease exacerbation, secondary to #1. 3. Atrial fibrillation with continued rapid ventricular response requiring Cardizem drip. 4. Hypertension. PLAN: We will continue with current antibiotic therapy with vancomycin and cefepime. I have continued his corticosteroids. At this point, we will continue with albuterol, but should he show continuation of irritable heart rhythm and persistent atrial fibrillation, consideration for changing to Xopenex. We will work on getting him on Cardizem drip. He has been resumed on his amiodarone and beta vishal. I have added aggressive bronchial hygiene, pulmonary toiletry with EzPAP and chest percussive therapy as tolerated. We will plan to check labs in the morning as well as repeat chest x-ray. We will continue to monitor cultures. Until he can transition to outpatient management, we will continue to monitor and treat as needed. #[id number] [facility]
[2018-08-26] MEDS: PRIMIDONE 50 MG TAB PO SCH (20:35)
[2018-08-26] MEDS: SIMVASTATIN 20 MG TAB PO SCH (20:35)
[2018-08-27] MEDS ORDERED: ALPRAZolam 0.25 MG TAB PO ONE (01:29)
[2018-08-27] MEDS ORDERED: ALPRAZolam 0.5 MG TAB ONE (01:33)
[2018-08-27] MEDS: methylPREDNISolone SODIUM SUC 125 MG/2 ML VIAL IV SCH ×4 (01:34→19:52)
[2018-08-27] MEDS: IPRATROPIUM/ALBUTEROL 3 ML VIAL INH SCH ×5 (04:04→20:05)
[2018-08-27] MEDS: VANCOMYCIN HCL INJ 1,000 MG, VANCOMYCIN HCL INJ 500 MG in SODIUM CHLORIDE 0.9% 250ML 25... IVPB SCH (05:41)
[2018-08-27] MEDS: LEVOTHYROXINE SODIUM 0.1 MG TAB PO SCH (06:33)
[2018-08-27] MEDS: OMEPRAZOLE CAP 20 MG CAP PO SCH (06:33)
[2018-08-27] MEDS ORDERED: SODIUM CHL 0.9% 50ML MIN-BAG+ 50 ML IVPB ONE (08:04)
[2018-08-27] MEDS ORDERED: CEFEPIME 2 GM VIAL ONE ×2 (08:05→20:01)
[2018-08-27] MEDS: BENZONATATE PERLES 100 MG CAP PO SCH ×3 (08:56→20:35)
[2018-08-27] MEDS: LISINOPRIL 5 MG TAB PO SCH (08:56)
[2018-08-27] MEDS: AMIODARONE HCL 200 MG TAB PO SCH ×2 (08:56→20:36)
[2018-08-27] MEDS: METOPROLOL SUCCINATE XL 50 MG TAB PO SCH (08:56)
[2018-08-27] MEDS ORDERED: MAGNESIUM HYDROXIDE 30 ML UD PO ONE (10:18)
[2018-08-27] MEDS: CEFEPIME 2 GM in SODIUM CHL 0.9% 50ML MIN-BAG+ 50 ML IVPB SCH ×2 (10:27→22:34)
[2018-08-27] MEDS: POLYETHYLENE GLYCOL 3350 17 GM PCKT PO SCH (10:27)
[2018-08-27] MEDS: PROMETHAZINE W/CODEINE SYR 5 ML UD PO PRN (15:27)
--- NOTE | 2018-08-27 20:03 | PN ---
DATE: 08/27/18 SUPERVISING PHYSICIAN: Holland Mercedes M.D. SUBJECTIVE: The patient notes that he feels a little bit less short of breath and still feels pretty poorly. He is actually up to the bedside chair today. I have discussed at the meeting with Krystal Yee in regards to [facility]. He has been off the Cardizem drip. He has not had any chest pains or any return of the rapid ventricular response in regards to his atrial fibrillation. He does state that he has a significant amount of coughing but it is controlled with cough medicine. OBJECTIVE: VITAL SIGNS: Temperature 97.8, pulse 107, blood pressure 121/74, respirations 20, satting 96% on nasal cannula at 2 liters at rest. I's and O's show a positive balance of 600 with a positive balance of 1294 with 1894 in, 600 out. His weight is 97.7 kg. GENERAL: Mr. Mcintyre is resting comfortably in the bedside chair and appears to be in no acute distress, but he still does appear to be dyspneic at rest. He is alert. CHEST: Lung sounds are improved from previous days but continues to have some decrease towards the bases with no wheezing today, but does continue to have some shortness of breath with exertion and speech. There is no notable rhonchi. HEART: Irregular rate and rhythm with a controlled ventricular rate anywhere from 90 to 110. ABDOMEN: Soft, non- tender. Positive bowel sounds. EXTREMITIES: Without any clubbing, cyanosis or edema. NEUROLOGIC: He is alert and oriented times three. LABORATORY: White count 7,200, hemoglobin and hematocrit were showing to be stable at 11.2 and 34.6 with platelet count 199,000. RBC indices indicate a microcytic hypochromic presentation. Chemistries: Electrolytes are showing within normal limits today with potassium 4, BUN 30, creatinine is down to 1.03, serum osmolality is showing to be at 290 with glucose 219, calcium 8.4. MICROBIOLOGY: Sputum culture is pending. Blood culture shows to be negative at 48 hours. RADIOLOGY: No additional radiographic studies today. Will repeat chest x-ray in the morning. ASSESSMENT: 1. Recurring right lower lobe pneumonia, community acquired showing slow improvement with parenteral antibiotics. 2. Chronic obstructive pulmonary disease exacerbation, secondary to #1, improving although slowly. 3. Atrial fibrillation now with a controlled ventricular rate after Cardizem drip. 4. Hypertension showing to be stable. 5. Depression not currently on any antidepressant. PLAN: Will continue with current plan of care at this point. He is showing improvement but is slow in doing so. Will decrease his corticosteroids tonight with intentions of tapering in the next 24 to 48 hours. Will continue with aggressive pulmonary hygiene toiletry. He has been off his Cardizem drip and he has been on Amiodarone and beta blockers. He is doing well with aggressive pulmonary toiletry with EzPAP. His labs are showing to be stable. Will hold off on repeating those in the morning but will repeat a chest x-ray. I did talk with Krystal Yee. She saw the patient in consultation today is going to try to get him in [facility] as well as get his involved as well into some counseling. I talked to Dr. Mcmanus in regards to the patient's . Consideration for antidepressive medication initiation is certainly warranted as again the patient has been showing some early signs of depression and a very flat affect. Until we can transition to outpatient management will continue to monitor and treat as needed. #[id number] [facility]
[2018-08-27] MEDS: PRIMIDONE 50 MG TAB PO SCH (20:35)
[2018-08-27] MEDS: SIMVASTATIN 20 MG TAB PO SCH (20:35)
[2018-08-27] MEDS: MAGNESIUM HYDROXIDE 30 ML UD PO SCH (20:36)
[2018-08-28] MEDS: IPRATROPIUM/ALBUTEROL 3 ML VIAL INH SCH ×6 (00:22→20:21)
[2018-08-28] MEDS ORDERED: VANCOMYCIN HCL INJ 1,000 MG VIAL IVPB ONE (00:46)
[2018-08-28] MEDS ORDERED: VANCOMYCIN HCL INJ 500 MG VIAL ONE (00:46)
[2018-08-28] MEDS ORDERED: SODIUM CHLORIDE 0.9% 250ML 250 ML ONE (00:46)
[2018-08-28] MEDS: VANCOMYCIN HCL INJ 1,000 MG, VANCOMYCIN HCL INJ 500 MG in SODIUM CHLORIDE 0.9% 250ML 25... IVPB SCH (00:50)
[2018-08-28] MEDS: methylPREDNISolone SODIUM SUC 125 MG/2 ML VIAL IV SCH ×2 (03:02→08:03)
[2018-08-28] MEDS: LEVOTHYROXINE SODIUM 0.1 MG TAB PO SCH (06:06)
[2018-08-28] MEDS: OMEPRAZOLE CAP 20 MG CAP PO SCH (06:06)
[2018-08-28] MEDS: PROMETHAZINE W/CODEINE SYR 5 ML UD PO PRN ×2 (06:12→17:25)
--- NOTE | 2018-08-28 06:47 | RAD ---
EXAM DESCRIPTION: Chest,2 Views CLINICAL HISTORY:88 years Male, pneumonia Comparison: August 26, 2018 FINDINGS: Unchanged bibasilar patchy opacities representing atelectasis or pneumonia. Enlarged cardiac silhouette unchanged. No pneumothorax. No pleural effusion. Electronically signed by: Lázaro Celaya MD 08/28/2018 6:45 AM [facility]
[2018-08-28] MEDS ORDERED: SODIUM CHL 0.9% 50ML MIN-BAG+ 50 ML IVPB ONE ×2 (08:28→20:07)
[2018-08-28] MEDS ORDERED: CEFEPIME 2 GM VIAL ONE ×2 (08:29→20:08)
[2018-08-28] MEDS: CEFEPIME 2 GM in SODIUM CHL 0.9% 50ML MIN-BAG+ 50 ML IVPB SCH ×2 (11:19→23:30)
[2018-08-28] MEDS: POLYETHYLENE GLYCOL 3350 17 GM PCKT PO SCH (11:21)
[2018-08-28] MEDS: METOPROLOL SUCCINATE XL 50 MG TAB PO SCH (11:21)
[2018-08-28] MEDS: LISINOPRIL 5 MG TAB PO SCH (11:21)
[2018-08-28] MEDS: BENZONATATE PERLES 100 MG CAP PO SCH ×3 (11:21→20:47)
[2018-08-28] MEDS: AMIODARONE HCL 200 MG TAB PO SCH ×2 (11:21→20:46)
[2018-08-28] MEDS: DOXYCYCLINE HYCLATE CAP 100 MG CAP PO SCH ×2 (11:27→20:47)
[2018-08-28] MEDS: methylPREDNISolone SODIUM SUC 40 MG/ML VIAL IV SCH ×3 (11:58→23:30)
--- NOTE | 2018-08-28 13:19 | PN ---
SUPERVISING PHYSICIAN: Mary Mercedes MD DATE: 08/28/18 SUBJECTIVE: The patient is sitting up in a chair in his room. He continues some complaints of shortness of breath with exertion, but he did say he walked in the alaniz a few feet. He also complains that he did not sleep and mostly due to his restless leg syndrome. He had been on some medications for that some time ago, but he is not presently on any medication for restless leg syndrome. I also explained to him that we decreased the steroids and changed one of his antibiotics from IV to p.o. and that we would monitor him closely. I gave him an update on his labs and x-ray. He has no other complaints. OBJECTIVE: VITAL SIGNS: Afebrile. Heart rate now 98. It has been as high as 128. Blood pressure 122/85. Respiratory rate 24. O2 saturation 93% on 2 liters nasal cannula. RESPIRATORY: Scattered rhonchi throughout with a few expiratory wheezes in the bilateral bases of his lung francois. He is somewhat tachypneic. CARDIAC: Regular rate, occasionally becoming tachycardic. Irregular rhythm. Atrial fibrillation on the quality assurance monitor final. GASTROINTESTINAL: Abdomen is soft, nondistended, nontender. Bowel sounds are positive. EXTREMITIES: No cyanosis, clubbing or edema. NEUROLOGIC: Awake, alert and oriented times three. LABORATORY: Sputum culture pending. Blood cultures show no growth after 48 hours. Chest x-ray shows unchanged bibasilar patchy opacities representing atelectasis or pneumonia, enlarged cardiac silhouette. All other labs and films have been reviewed via the EMR. ASSESSMENT: 1. Recurring right lower lobe pneumonia, community acquired, although his chest x-ray shows some bibasilar infiltrates, he is showing slow improvement with parenteral antibiotics as well as IV steroids. 2. Chronic obstructive pulmonary disease exacerbation, secondary to #1, improving, but very slowly. 3. Atrial fibrillation with a controlled ventricular rate after Cardizem drip. 4. Hypertension, stable. 5. Depression, not currently on any antidepressant. 6. Restless leg syndrome. 7. Insomnia. PLAN: We will continue present supportive care. I have discontinued his IV vancomycin and changed him to doxycycline. I have also tapered his steroids. I will hold on lab and x-ray until Friday. I have also started him on Requip and we will put him on 0.25 at nighttime for 2 days and then increase to 0.5. I have also added doxepin to help with sleep. We will encourage good pulmonary hygiene. We will continue to monitor the patient closely and follow as needed. [facility][id number] [facility]
[2018-08-28] MEDS: IV SET AND CAP CHANGE INJ INJ SCH (16:26)
[2018-08-28] MEDS: PRIMIDONE 50 MG TAB PO SCH (20:46)
[2018-08-28] MEDS: SIMVASTATIN 20 MG TAB PO SCH (20:47)
[2018-08-28] MEDS: SODIUM CHLORIDE 0.9% (FLUSH) 10 ML SYG IV PRN ×2 (20:47→23:30)
[2018-08-28] MEDS: MAGNESIUM HYDROXIDE 30 ML UD PO SCH (20:47)
[2018-08-28] MEDS ORDERED: DOXEPIN HCL 25 MG CAP PO SCH (21:00)
[2018-08-29] MEDS: IPRATROPIUM/ALBUTEROL 3 ML VIAL INH SCH ×6 (00:21→20:00)
[2018-08-29] MEDS: methylPREDNISolone SODIUM SUC 40 MG/ML VIAL IV SCH (06:20)
[2018-08-29] MEDS: OMEPRAZOLE CAP 20 MG CAP PO SCH (06:20)
[2018-08-29] MEDS: LEVOTHYROXINE SODIUM 0.1 MG TAB PO SCH (06:20)
[2018-08-29] MEDS: AMIODARONE HCL 200 MG TAB PO SCH ×2 (08:01→20:30)
[2018-08-29] MEDS: DOXYCYCLINE HYCLATE CAP 100 MG CAP PO SCH ×2 (08:01→20:32)
[2018-08-29] MEDS: POLYETHYLENE GLYCOL 3350 17 GM PCKT PO SCH (08:01)
[2018-08-29] MEDS: BENZONATATE PERLES 100 MG CAP PO SCH ×3 (08:01→20:30)
[2018-08-29] MEDS: LISINOPRIL 5 MG TAB PO SCH (08:01)
[2018-08-29] MEDS: METOPROLOL SUCCINATE XL 50 MG TAB PO SCH (08:01)
[2018-08-29] MEDS ORDERED: CITALOPRAM HBR 20 MG TAB ONE (09:06)
[2018-08-29] MEDS ORDERED: predniSONE 20 MG TAB ONE (09:06)
[2018-08-29] MEDS: predniSONE 20 MG TAB PO SCH (09:08)
[2018-08-29] MEDS: CITALOPRAM HBR 20 MG TAB PO SCH (09:08)
[2018-08-29] MEDS: guaiFENesin ER TAB 600 MG TAB PO SCH ×2 (09:08→20:31)
--- NOTE | 2018-08-29 10:01 | PN ---
SUPERVISING PHYSICIAN: Mary Mercedes MD DATE: 08/29/18 SUBJECTIVE: The patient is sitting up in his chair. He continues to complain of shortness of breath. He says he cannot walk very far without getting extremely short of breath. He also says his coughing is dry and he is unable to cough anything up. He feels like he is still wheezing. He denies any chest pain, nausea, vomiting, diarrhea or constipation. He also said he did not sleep again last night but his restless legs were some better. I explained that his medicine that I was giving him had to be slowly increased and he would be getting a higher dose tomorrow night. OBJECTIVE: VITAL SIGNS: Afebrile. Heart rate is 94. It has been as high as 116 to regular. Blood pressure 135/89. Respiratory rate 24. O2 saturation 91% on 2 liters nasal cannula. RESPIRATORY: Coarse breath sounds throughout with some expiratory wheezing in the bilateral bases, slightly improved since yesterday. He is somewhat tachypneic and he does have to speak in short phrases. CARDIAC: Regular rate, irregular rhythm. Atrial fibrillation on the print line inspector. GASTROINTESTINAL: Abdomen is soft, nondistended, nontender. Bowel sounds are positive. NEUROLOGIC: Awake, alert and oriented times three. LABORATORY: His preliminary blood cultures show no growth after 3 days. Sputum culture shows normal melba. All other labs and films have been reviewed via the EMR. ASSESSMENT: 1. Recurring right lower lobe pneumonia, community acquired, although his chest x-ray shows some bibasilar infiltrates, he is showing slow improvement with parenteral antibiotics as well as IV steroids. 2. Chronic obstructive pulmonary disease exacerbation, secondary to #1, improving, but very slowly. 3. Atrial fibrillation with a controlled ventricular rate after Cardizem drip. 4. Hypertension, stable. 5. Depression, not currently on any antidepressant. 6. Restless leg syndrome. 7. Insomnia. PLAN: We will continue present supportive care including good pulmonary hygiene. I have ordered him to ambulate 4 times a day. I have also started him on 20 mg of Celexa. His IV steroids have been stopped and I have changed him to oral steroids this morning as well as Mucinex. We will need to make sure that he gets in with [facility] and that [facility] I increased his Doxepin to help with sleep, I increased it to 15 mg at bedtime. I have ordered lab and x-ray for in the morning. Hopefully, he can go home tomorrow or the next day and we will see how he is clinically. We will continue to monitor him closely and treat as needed. [facility][id number] [facility]
[2018-08-29] MEDS ORDERED: SODIUM CHL 0.9% 50ML MIN-BAG+ 50 ML IVPB ONE ×2 (10:17→19:34)
[2018-08-29] MEDS ORDERED: CEFEPIME 2 GM VIAL ONE ×2 (10:18→19:35)
[2018-08-29] MEDS: CEFEPIME 2 GM in SODIUM CHL 0.9% 50ML MIN-BAG+ 50 ML IVPB SCH ×2 (10:39→22:50)
[2018-08-29] MEDS: PRIMIDONE 50 MG TAB PO SCH (20:30)
[2018-08-29] MEDS: SIMVASTATIN 20 MG TAB PO SCH (20:31)
[2018-08-29] MEDS: DOXEPIN HCL 25 MG CAP PO SCH (20:32)
[2018-08-29] MEDS: MAGNESIUM HYDROXIDE 30 ML UD PO SCH (20:33)
[2018-08-30] MEDS: IPRATROPIUM/ALBUTEROL 3 ML VIAL INH SCH ×6 (00:32→20:54)
[2018-08-30] MEDS: OMEPRAZOLE CAP 20 MG CAP PO SCH (06:06)
[2018-08-30] MEDS: LEVOTHYROXINE SODIUM 0.1 MG TAB PO SCH (06:06)
--- NOTE | 2018-08-30 07:08 | RAD ---
EXAM DESCRIPTION: Chest,2 Views CLINICAL HISTORY:88 years Male, pna Comparison: August 28, 2018 FINDINGS: Bilateral basilar patchy opacities may represent atelectasis or pneumonia. No pleural effusion. No pneumothorax. Prominent cardiac silhouette No acute osseous abnormality. Soft tissues are unremarkable. IMPRESSION: Unchanged bilateral basilar patchy opacities may represent atelectasis or pneumonia. Electronically signed by: Lázaro Celaya MD 08/30/2018 7:06 AM [employer]IGITAL ASSET COORDINATOR
[2018-08-30] MEDS: AMIODARONE HCL 200 MG TAB PO SCH ×2 (08:17→20:39)
[2018-08-30] MEDS: predniSONE 20 MG TAB PO SCH (08:17)
[2018-08-30] MEDS: METOPROLOL SUCCINATE XL 50 MG TAB PO SCH (08:17)
[2018-08-30] MEDS: DOXYCYCLINE HYCLATE CAP 100 MG CAP PO SCH ×2 (08:17→20:37)
[2018-08-30] MEDS: LISINOPRIL 5 MG TAB PO SCH (08:17)
[2018-08-30] MEDS: BENZONATATE PERLES 100 MG CAP PO SCH ×3 (08:17→20:38)
[2018-08-30] MEDS: guaiFENesin ER TAB 600 MG TAB PO SCH ×2 (08:18→20:38)
[2018-08-30] MEDS: CITALOPRAM HBR 20 MG TAB PO SCH (08:18)
[2018-08-30] MEDS: POLYETHYLENE GLYCOL 3350 17 GM PCKT PO SCH (08:24)
[2018-08-30] MEDS ORDERED: CEFEPIME 2 GM VIAL ONE ×2 (11:02→19:50)
[2018-08-30] MEDS ORDERED: SODIUM CHL 0.9% 50ML MIN-BAG+ 50 ML IVPB ONE ×2 (11:02→19:49)
[2018-08-30] MEDS: CEFEPIME 2 GM in SODIUM CHL 0.9% 50ML MIN-BAG+ 50 ML IVPB SCH ×2 (11:04→23:05)
--- NOTE | 2018-08-30 14:50 | PN ---
DATE: 08/30/18 SUPERVISING PHYSICIAN: Holland Mercedes M.D. SUBJECTIVE: The patient is sitting up in his room. Complains of weakness and just no stamina. He says his shortness of breath is better but he still gets short of breath with ambulating. He is quite concerned about his and her dementia, and is looking forward to getting some help at home. I spoke with Dr. Mercedes and he agreed with me that the patient should be discharged tomorrow or the next day due to finalizing some appointments with [facility]. Otherwise denies chest pain, nausea, vomiting, diarrhea. OBJECTIVE: VITAL SIGNS: He is afebrile, heart rate 100, it has gotten up as high as 120. Blood pressure 119/85, respiratory rate 20, O2 sat is 96% on 2 liters nasal cannula. RESPIRATORY: Scattered rhonchi throughout. There is no wheezing noted. He is diminished at the bases. CARDIAC: Regular rate. At times he is slightly tachycardic. Irregular rhythm. 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 GASTROINTESTINAL: Abdomen is soft, nondistended, non-tender. Bowel sounds are positive. NEUROLOGIC: He is awake, alert and oriented times three. LABORATORY: WBCs are normal at 8,000 with hemoglobin 12.3, hematocrit 37.7. He continues to have a left shift on differential but it is improving. Electrolytes are basically within normal limits, except creatinine has gone up slightly to 1.34. Baseline creatinine is probably about 1.1 to 1.3. Preliminary blood cultures show no growth after 4 days. Chest x-ray shows unchanged bilateral basilar patchy opacities representing atelectasis or pneumonia. All other labs and films have been reviewed via the EMR. ASSESSMENT: 1. Recurring right lower lobe pneumonia, community acquired, although his chest x-ray shows some bibasilar infiltrates, he is showing slow improvement with parenteral antibiotics. His IV steroids have been tapered and he is now on oral prednisone. 2. Chronic obstructive pulmonary disease exacerbation, secondary to #1, improving, but very slowly. 3. Atrial fibrillation with a controlled ventricular rate after Cardizem drip. 4. Hypertension, stable. 5. Depression, not currently on any antidepressant. 6. Restless leg syndrome. 7. Insomnia. PLAN: We will continue present supportive care that includes good pulmonary hygiene. He is to continue ambulating as frequently as he can. He will continue on his Celexa as well as his oral steroids. He will need a steroid taper on discharge. We will need to followup tomorrow with his [facility] for him and his . He also has Requip for his restless leg syndrome and that has to be titrated up after discharge. Hopefully he can be discharged tomorrow. He may benefit from a pulmonary consultation as well as pulmonary rehab, but that can be done on an outpatient basis. I have held on any labs or chest x-ray at this time. Will continue to monitor him closely and follow as needed. Dr. Mercedes is the collaborating physician available for consultation. #[id number] [facility]
[2018-08-30] MEDS ORDERED: FUROSEMIDE INJ 20 MG/2 ML VIAL IV ONE (19:30)
[2018-08-30] MEDS: SODIUM CHLORIDE 0.9% (FLUSH) 10 ML SYG IV PRN ×2 (20:00→23:05)
[2018-08-30] MEDS: SIMVASTATIN 20 MG TAB PO SCH (20:37)
[2018-08-30] MEDS: DOXEPIN HCL 25 MG CAP PO SCH (20:38)
[2018-08-30] MEDS: PRIMIDONE 50 MG TAB PO SCH (20:38)
[2018-08-30] MEDS: MAGNESIUM HYDROXIDE 30 ML UD PO SCH (20:39)
[2018-08-31] MEDS: IPRATROPIUM/ALBUTEROL 3 ML VIAL INH SCH ×3 (05:01→07:20)
[2018-08-31] MEDS: OMEPRAZOLE CAP 20 MG CAP PO SCH (06:11)
[2018-08-31] MEDS: LEVOTHYROXINE SODIUM 0.1 MG TAB PO SCH (06:11)
[2018-08-31] MEDS ORDERED: SODIUM CHL 0.9% 50ML MIN-BAG+ 50 ML IVPB ONE (07:40)
[2018-08-31] MEDS ORDERED: CEFEPIME 2 GM VIAL ONE (07:41)
[2018-08-31] MEDS: DOXYCYCLINE HYCLATE CAP 100 MG CAP PO SCH (09:40)
[2018-08-31] MEDS: guaiFENesin ER TAB 600 MG TAB PO SCH (09:40)
[2018-08-31] MEDS: AMIODARONE HCL 200 MG TAB PO SCH (09:40)
[2018-08-31] MEDS: CITALOPRAM HBR 20 MG TAB PO SCH (09:40)
[2018-08-31] MEDS: METOPROLOL SUCCINATE XL 50 MG TAB PO SCH (09:40)
[2018-08-31] MEDS: LISINOPRIL 5 MG TAB PO SCH (09:40)
[2018-08-31] MEDS: POLYETHYLENE GLYCOL 3350 17 GM PCKT PO SCH (09:40)
[2018-08-31] MEDS: BENZONATATE PERLES 100 MG CAP PO SCH (09:40)
[2018-08-31] MEDS: predniSONE 20 MG TAB PO SCH (09:40)
[2018-08-31 10:13] VITALS: BP 109/73; TEMP 97.5; O2SAT 91
[2018-08-31] MEDS: CEFEPIME 2 GM in SODIUM CHL 0.9% 50ML MIN-BAG+ 50 ML IVPB SCH (11:50)
--- NOTE | 2018-08-31 15:12 | DS ---
SUPERVISING PHYSICIAN: Grupo Ramirez MD ADMISSION DIAGNOSIS: 1. Recurrent right lower lobe pneumonia. 2. Chronic obstructive pulmonary disease exacerbation. 3. Volume depletion. 4. Atrial fibrillation with rapid ventricular response. 5. Hypertension. DISCHARGE DIAGNOSIS: 1. Recurrent right lower lobe pneumonia. 2. Chronic obstructive pulmonary disease exacerbation. 3. Volume depletion. 4. Atrial fibrillation with rapid ventricular response. 5. Hypertension. 6. Disuse myopathy. HOSPITAL COURSE: This is an 88-year-old patient who went to Dr. Mercedes's office on the day of admission for shortness of breath. He had cough and shortness of breath for three weeks prior. He was recently admitted with a right lower lobe pneumonia prior to that as well. He was discharged back on July 23. In the clinic, he was short of breath and had pretty significant adventitious lung sounds. Therefore, he was sent to the Emergency Room. In the Emergency Room, his workup included chest x-ray and labs. White cell count was normal although he was noted to have a right lower lobe pneumonia. Additionally, he was in atrial fibrillation with rapid ventricular response and given several doses of Cardizem and then required placement on the Cardizem drip. Throughout his admission, he step-louis improved. He was transitioned over to doxycycline p.o. He was also placed on p.o. steroids. The patient was weaker than he normally is, but states that that should be expected per his own age. He states he would like to go home and clinically, he has improved. Therefore, I am going to discharge him today in stable condition. His white count is normal. The chest x-ray yesterday was pretty much unchanged. He does have home health at home, which is [facility]. Currently, the nurses come out once a week and physical therapy comes out twice a week, but once gets home, they are going to reevaluate him for more frequent visits. I have discharged him home with a new prescription for citalopram 20 mg p.o. daily, doxepin 50 mg at bedtime, doxycycline 100 mg p.o. b.i.d., guaifenesin 600 mg p.o. b.i.d., DuoNeb q.4h., prednisone taper and Requip 0.5 mg at bedtime. Diet is regular diet. Activities will be per physical therapy with [facility]. [id number]
== END 2018-08-31 12:50 | disposition home or self-care (01) | DRG 190 ==
LOC: ER 11:05 → MS 16:35
PROVIDERS: ADMIT Nurse Practitioner; ATTEND Nurse Practitioner
DX: J44.1 Chronic obstructive pulmonary disease with (acute) exacerbation (principal); J18.1 Lobar pneumonia, unspecified organism; I50.32 Chronic diastolic (congestive) heart failure; J44.0 Chronic obstructive pulmonary disease with (acute) lower respiratory infection; I48.91 Unspecified atrial fibrillation; I11.0 Hypertensive heart disease with heart failure; K21.9 Gastro-esophageal reflux disease without esophagitis; E03.9 Hypothyroidism, unspecified; E78.5 Hyperlipidemia, unspecified; G89.29 Other chronic pain; M54.9 Dorsalgia, unspecified; F32.9 Major depressive disorder, single episode, unspecified; G25.81 Restless legs syndrome; E86.9 Volume depletion, unspecified; G47.00 Insomnia, unspecified; G72.89 Other specified myopathies; Z88.1 Allergy status to other antibiotic agents; Z87.891 Personal history of nicotine dependence

== ENCOUNTER → 2018-10-01 | Outpatient (CLI) | payer MEDICARE ==
--- NOTE | 2018-10-01 20:40 | US ---
EXAM DESCRIPTION: Venous,Lower Extremity LT CLINICAL HISTORY: 88 years Male M79.605 COMPARISON: None. TECHNIQUE: Duplex and color Doppler imaging performed to evaluate the extremity deep venous structures. Compression imaging and augmentation imaging performed. FINDINGS: The posterior tibial veins are not seen because of calf edema bilaterally. No thrombus is identified in the deep venous structures imaged. There is normal flow, compressibility, and augmentation throughout. IMPRESSION: No DVT is identified. Electronically signed by: Damion Alarcon 10/01/2018 8:39 PM [facility]
--- NOTE | 2018-10-01 20:41 | US ---
EXAM DESCRIPTION: Venous,Lower Extremity RT CLINICAL HISTORY: 88 years Male M79.604 COMPARISON: None. TECHNIQUE: Duplex and color Doppler imaging performed to evaluate the extremity deep venous structures. Compression imaging and augmentation imaging performed. FINDINGS: Bilateral posterior tibial veins are not seen because of edema in the calves. No thrombus is identified in the deep venous structures imaged. There is normal flow, compressibility, and augmentation throughout. IMPRESSION: No DVT is identified. Electronically signed by: Damion Alarcon 10/01/2018 8:40 PM [facility]
== END ==
LOC: US 16:59
PROVIDERS: ATTEND Family Medicine
DX: M79.605 Pain in left leg (principal); M79.604 Pain in right leg; R60.0 Localized edema

== ENCOUNTER → 2018-10-12 | Outpatient (CLI) | payer MEDICARE | LOC: GMAE 15:16 | PROVIDERS: ATTEND Family Medicine | DX: R06.02 Shortness of breath (principal); J44.1 Chronic obstructive pulmonary disease with (acute) exacerbation ==

== ENCOUNTER → 2018-10-28 | Outpatient (CLI) | payer MEDICARE | LOC: GMAE 16:45 | PROVIDERS: ATTEND Family Medicine | DX: E03.9 Hypothyroidism, unspecified (principal); Z12.5 Encounter for screening for malignant neoplasm of prostate | CPT/HCPCS: 84439; 84443; 84481; G0103 ==

== ENCOUNTER → 2019-06-01 | Outpatient (CLI) | payer MEDICARE | LOC: LAB.O 13:23 | PROVIDERS: ATTEND Orthopaedic Surgery | DX: Z01.818 Encounter for other preprocedural examination (principal) ==

== ENCOUNTER 2019-08-17 13:53 | Inpatient (IN) | payer MEDICARE ==
[2019-08-17] MEDS ORDERED: methylPREDNISolone SODIUM SUC 125 MG/2 ML VIAL IV ONE (14:03)
[2019-08-17] MEDS ORDERED: IPRATROPIUM/ALBUTEROL 3 ML VIAL NEB ONE (14:03)
--- NOTE | 2019-08-17 14:08 | ED.PDOC ---
History of Present Illness - General Stated Complaint: shortness of breath Time Seen by Provider: 08/17/19 14:02 Source: patient, Vital Signs reviewed, family - History of Present Illness Initial Comments: 89 year old male patient wiht hx of hyperlipidemia, hypertension, atrial fibrillation, copd, former smoker, patient presents with shortness of breath. He has had a long history of repiratory issues, but gottent worse this past week. patient denies fever and he is not oxygen dependant at home jd went to the clinic and the notice that his pusle ox was 88% so they decided to sent him her on his private vehicle Timing/Duration: 1 week Severity: severe Allergies/Adverse Reactions: Allergies NO KNOWN ALLERGY Allergy (Verified 08/17/19 14:54) Home Medications: Ambulatory Orders Lisinopril 5 mg PO DAILY 11/20/15 Metoprolol Succinate [Metoprolol Succinate ER] 50 mg PO DAILY 11/20/15 Omeprazole 20 mg PO DAILY 11/20/15 Simvastatin [Zocor] 20 mg PO DAILY 11/20/15 Albuterol Sulfate Nebs [Proventil Nebs] 2.5 mg INH Q4H PRN 07/18/18 Amiodarone HCl 200 mg PO BID 07/18/18 Levothyroxine Sodium [Synthroid] 0.1 mg PO QAM 07/18/18 Potassium 10 meq PO DAILY 07/18/18 Primidone 50 mg PO BEDTIME 07/18/18 Citalopram Hydrobromide [Celexa] 20 mg PO DAILY 30 Days #30 tab 08/31/18 Doxepin HCl [Sinequan] 50 mg PO BEDTIME 30 Days #30 cap 08/31/18 Doxycycline Hyclate [Vibramycin] 100 mg PO BID 7 Days #14 cap 08/31/18 Ipratropium/Albuterol [Duoneb] 3 ml INH RTQ4 30 Days #2 b 08/31/18 guaiFENesin ER TAB [Mucinex Tab] 600 mg PO BID 30 Days #60 tab 08/31/18 predniSONE See Taper PO DAILY 12 Days #20 tab 08/31/18 rOPINIRole HCL [Requip] 0.5 mg PO BEDTIME 30 Days #30 tab 08/31/18 Review of Systems - Review of Systems Constitutional: States: no symptoms reported EENTM: States: no symptoms reported Respiratory: States: cough, orthopnea, short of breath, wheezing Cardiology: States: no symptoms reported Gastrointestinal/Abdominal: States: no symptoms reported Genitourinary: States: no symptoms reported Skin: States: no symptoms reported Neurological: States: no symptoms reported Endocrine: States: no symptoms reported Hematologic/Lymphatic: States: no symptoms reported Past Medical History (General) - Patient Medical History Hx Seizures: No Hx Stroke: No Hx Asthma: No Hx of COPD: Yes Hx Cardiac Disorders: Yes - Hyperlipidemia Hx Congestive Heart Failure: No Hx Pacemaker: No Hx Hypertension: Yes Hx Thyroid Disease: Yes Hx Diabetes: No Hx Gastroesophageal Reflux: Yes Hx MRSA: No MRSA Source:: Wound - Vaccination History Hx Tetanus, Diphtheria Vaccination: - unknown Hx Influenza Vaccination: No Hx Pneumococcal Vaccination: No - Social History Hx Tobacco Use: Yes - Quit 2004 Hx Chewing Tobacco Use: No Hx Alcohol Use: No Hx Substance Use: No Hx Substance Use Treatment: No Hx Depression: No Hx Physical Abuse: No Hx Emotional Abuse: No - Female History Patient : No Family Medical History - Family History Mother Family History: Unknown Living Status: Physical Exam - Physical Exam General Appearance: Alert, Well Developed, Well Groomed, Well Hydrated, Well Nourished, Other - able to speak in long sentences Eyes, Ears, Nose, Throat Exam: PERRL/EOMI, normal ENT inspection, TMs normal Neck: non-tender, full range of motion, supple, normal inspection, other - no jvd but suprasternal retractions Respiratory: wheezing, expiration, inspiration Cardiovascular/Chest: normal peripheral pulses, regular rate, rhythm, no edema, no gallop, no JVD, no murmur Gastrointestinal/Abdominal: normal bowel sounds, non tender, soft, no organomegaly, no pulsatile mass Extremity: normal range of motion, non-tender, normal inspection, no pedal edema Neurologic: alert, normal mood/affect, oriented x 3 Progress - Progress Progress: 08/17/19 14:10 this i s patient with copd, foremer smoker that presents with sob and wheezing, I suspect copd exacerbation. will get labs, bnp, troponins, d-dimers, chest xrays. Will initiate duo neb treatment and steroids . Patient is able to speak in long and complete sentences and no evidence respiratory failure 08/17/19 14:27 EkG showed atrial fibrillation with fast ventricular response, will check blood pressure before giving Cardizem 08/17/19 14:47 Patchy bibasilar opacities noted and could reflect pneumonia, atelectasis, or scarring. Follow-up to resolution recommended. In addition, there is persistent prominence of the left ramiro. Contrast-enhanced CT of the chest could better evaluate if not already performed. I order chest ct and start the patient with rocephin and zithromax. Patient bp is normal so will give cardizem for rate control 08/17/19 15:04 troponins were negative, patient stated that he feels a lot better, his rates increases as he gets treatment but clinically looks a lot better. patient will be consulted with hospitalist for admission - EKG/XRAY/CT EKG: Atrial, Fibrillation - Additional EKG/XRAY/Consults Time Called: 15:08 - looking fore available beds Departure - Departure Clinical Impression: COPD (chronic obstructive pulmonary disease) Qualifiers: COPD type: COPD with acute exacerbation Qualified Code(s): J44.1 - Chronic obstructive pulmonary disease with (acute) exacerbation Atrial fibrillation Qualifiers: Atrial fibrillation type: unspecified chronic Qualified Code(s): I48.20 - Chronic atrial fibrillation, unspecified; I48.2 - Chronic atrial fibrillation Disposition: Admit Patient Referrals: STACIE MARTIN MD [Primary Care Provider] - 1-2 Weeks Home Medications: Ambulatory Orders Lisinopril 5 mg PO DAILY 11/20/15 Metoprolol Succinate [Metoprolol Succinate ER] 50 mg PO DAILY 11/20/15 Omeprazole 20 mg PO DAILY 11/20/15 Simvastatin [Zocor] 20 mg PO DAILY 11/20/15 Albuterol Sulfate Nebs [Proventil Nebs] 2.5 mg INH Q4H PRN 07/18/18 Amiodarone HCl 200 mg PO BID 07/18/18 Levothyroxine Sodium [Synthroid] 0.1 mg PO QAM 07/18/18 Potassium 10 meq PO DAILY 07/18/18 Primidone 50 mg PO BEDTIME 07/18/18 Citalopram Hydrobromide [Celexa] 20 mg PO DAILY 30 Days #30 tab 08/31/18 Doxepin HCl [Sinequan] 50 mg PO BEDTIME 30 Days #30 cap 08/31/18 Doxycycline Hyclate [Vibramycin] 100 mg PO BID 7 Days #14 cap 08/31/18 Ipratropium/Albuterol [Duoneb] 3 ml INH RTQ4 30 Days #2 b 08/31/18 guaiFENesin ER TAB [Mucinex Tab] 600 mg PO BID 30 Days #60 tab 08/31/18 predniSONE See Taper PO DAILY 12 Days #20 tab 08/31/18 rOPINIRole HCL [Requip] 0.5 mg PO BEDTIME 30 Days #30 tab 08/31/18
--- NOTE | 2019-08-17 14:42 | RAD ---
Study: Single Frontal Radiograph of the Chest. Indication:shortness of breath Comparison: August 30, 2018 Impression: Cardiomegaly. Patchy bibasilar opacities noted and could reflect pneumonia, atelectasis, or scarring. Follow-up to resolution recommended. In addition, there is persistent prominence of the left ramiro. Contrast-enhanced CT of the chest could better evaluate if not already performed. Tiny pleural effusions suspected. No pneumothorax. Electronically signed by: Brent Kwan MD 08/17/2019 2:41 PM [facility]
[2019-08-17] MEDS ORDERED: AZITHROMYCIN IV 500 MG in SODIUM CHLORIDE 0.9% 250ML 250 ML IVPB ONE (14:48)
[2019-08-17] MEDS ORDERED: cefTRIAXone SODIUM 1 GM in SODIUM CHL 0.9% 50ML MIN-BAG+ 50 ML IVPB ONE (14:48)
[2019-08-17] MEDS ORDERED: ALBUTEROL SULFATE 2.5 MG/3 ML VIAL NEB ONE ×2 (14:52→15:04)
[2019-08-17] MEDS ORDERED: SODIUM CHL 0.9% 50ML MIN-BAG+ 50 ML IVPB ONE ×2 (14:55→19:56)
[2019-08-17] MEDS ORDERED: cefTRIAXone SODIUM 1 GM VIAL ONE (14:55)
[2019-08-17] MEDS ORDERED: HYDROcodone 10MG/APAP 325MG 1 EA TAB PO ONE (15:26)
[2019-08-17] MEDS ORDERED: AZITHROMYCIN IV 500 MG VIAL IVPB ONE (15:31)
[2019-08-17] MEDS ORDERED: SODIUM CHLORIDE 0.9% 250ML 250 ML ONE (15:31)
--- NOTE | 2019-08-17 15:50 | HP ---
SUPERVISING PHYSICIAN: Grupo Ramirez M.D. CHIEF COMPLAINT: Shortness of breath. HISTORY OF PRESENT ILLNESS: This is an 89 year-old male patient with a longstanding history of chronic obstructive pulmonary disease. He states that his shortness of breath started about a week ago but has progressively worsened over that time. He went to go be seen at the clinic but was hypoxic so he was sent here. Upon arrival the patient's O2 saturations were 88% on room air. We put oxygen on him and gave him nebulizer treatments as well as IV corticosteroids. We gave him Rocephin as well as azithromycin. Also, his atrial fibrillation was rapid so we gave him Diltiazem push. This improved his heart rate. His symptoms have improved but not back to baseline, therefore he was referred for admission. His chest x-ray shows patchy infiltrates bilaterally. Labs showed a white count of 14.6 with a left shift of 78.8%. D- dimer was elevated at 4.93. Chemistry with an elevated BUN and creatinine of 26 and 1.49 respectively. He did end up having a CT angiography of the chest due to the elevated D-dimer, although the patient is on anticoagulation. There was no evidence of pulmonary embolism. At time of examination, the patient is alert and oriented. He is dyspneic at rest. He has bilateral wheezing with scattered rhonchi as well. PAST MEDICAL HISTORY: 1. Chronic obstructive pulmonary disease. 2. Hypertension. 3. Hyperlipidemia. 4. Gastroesophageal reflux disease. 5. Chronic back pain. 6. Hypothyroidism. 7. Atrial fibrillation on Xarelto. 8. Diastolic heart failure. PAST SURGICAL HISTORY: 1. Appendectomy. 2. Cholecystectomy. 3. Laparoscopic knee surgery. 4. Bronchoscopy. CURRENT MEDICATIONS: Please see medication rec. list once it is verified in the computer. ALLERGIES: AZITHROMYCIN. FAMILY HISTORY: The patient was an orphan so he does not know his family history. SOCIAL HISTORY: The patient is . He lives in [place]. He has 1 child. 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 He used to smoke heavily but quit in 2004. No alcohol and no illicit drugs. REVIEW OF SYSTEMS: CONSTITUTIONAL: No fever or chills. No recent weight loss or weight gain. Positive for weakness. HEENT: No headaches, vision changes, ear pain, nasal congestion or throat pain. RESPIRATORY: Positive for cough. No hemoptysis. No pleuritic chest pain, shortness of breath. CARDIOVASCULAR: No chest pain, palpitations or peripheral edema. GASTROINTESTINAL: No nausea, vomiting, diarrhea, constipation or abdominal pain. GENITOURINARY: No dysuria, frequency or flank pain. MUSCULOSKELETAL: No joint pain, joint swelling or muscle cramps. HEMATOLOGIC: Positive for easy bruising. No transfusion reaction. NEUROLOGIC: No seizures, paresthesias or syncope. ENDOCRINE: No polydipsia, polyuria or polyphagia. No heat or cold intolerance. PHYSICAL EXAMINATION: VITAL SIGNS: Blood pressure 114/81, heart rate 114, respiratory rate 26, temperature 96.5, oxygen saturation 95%. GENERAL: Mr. Mcintyre is an 89 year-old male patient in some moderate respiratory distress. CHEST: Lungs have bilateral wheezing with scattered rhonchi. CARDIOVASCULAR: Irregular rate and rhythm. Atrial fibrillation with rapid ventricular response per the monitor. ABDOMEN: Soft. Positive bowel sounds. GENITOURINARY: Exam is deferred. EXTREMITIES: Lower extremities with no edema. NEUROLOGIC: The patient is alert and oriented. LABORATORY: Labs and films discussed in the History of Present Illness. ASSESSMENT: 1. Bilateral pneumonia. 2. Chronic obstructive pulmonary disease exacerbation. 3. Acute kidney injury. 4. Atrial fibrillation with rapid ventricular response. 5. Hypertension. 6. Gastroesophageal reflux disease. 7. History of diastolic heart failure with no evidence of exacerbation. PLAN: At this time the patient will be admitted as an inpatient for bilateral pneumonia as well as chronic obstructive pulmonary disease exacerbation. He was given Rocephin in the Emergency Room as well as azithromycin. We placed him on Cefepime for the inpatient stay, IV corticosteroids as well as scheduled nebulizer treatments with Xopenex. Will add Pulmicort as well. He has a pretty aggressive cough, so I am going to give him some Tussionex to help him rest. He states he has not slept in quite some time. Will followup the chest x-ray as well as labs tomorrow. I will resume the Xarelto once it is verified in the computer as well as placed him on a proton pump inhibitor for gastrointestinal ulcer prophylaxis. [id number] [facility]
--- NOTE | 2019-08-17 16:25 | CT ---
EXAM DESCRIPTION: CTA Chest CLINICAL HISTORY: 89 years Male, sob, rule out penumonina COMPARISON: Chest x-ray dated 17 August 2019 TECHNIQUE: Transaxial images were obtained with intravenous contrast media. Multiplanar reconstruction was performed. No 3-D reconstruction was performed.This exam was performed according to our departmental dose-optimization program, which includes automated exposure control, adjustment of the mA and/or kV according to patient size and/or use of iterative reconstruction technique. FINDINGS: No axillary adenopathy is seen. Calcific atherosclerotic changes observed in the thoracic aorta. 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 Prominent upper mediastinal nodes are observed in the posterior paratracheal region. Mild distention of the esophagus is observed. Calcified lymph nodes are also observed in the subcarinal region. A large hiatus hernia is observed. No adrenal masses are detected. 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 Some scarring is observed in the right lower lobe. Mild apical pleural thickening is noted. Exam is degraded by respiratory motion. IMPRESSION: 1. Prominent posterior paratracheal nodes are observed in the upper mediastinum. 2. 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 No focal acute infiltrate is identified. 3. No evidence of pulmonary embolus is seen. 4. Hiatus hernia. 5. 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 Electronically signed by: Jose Ga MD 08/17/2019 4:24 PM [employer] [employer] [facility]
[2019-08-17] MEDS ORDERED: SODIUM CHLORIDE 0.9% (FLUSH) 10 ML SYG IV PRN (16:28)
[2019-08-17] MEDS ORDERED: LEVALBUTEROL NEBS 1.25 MG/3 ML VIAL INH PRN (16:28)
[2019-08-17] MEDS ORDERED: IV SET AND CAP CHANGE INJ INJ SCH (16:30)
[2019-08-17] MEDS: PANTOPRAZOLE SODIUM IV 40 MG VIAL IV SCH (17:38)
[2019-08-17] MEDS: LEVALBUTEROL NEBS 1.25 MG/3 ML VIAL INH SCH (18:46)
[2019-08-17] MEDS ORDERED: CEFEPIME 2 GM VIAL ONE (19:57)
[2019-08-17] MEDS ORDERED: methylPREDNISolone SODIUM SUC 40 MG/ML VIAL ONE (19:57)
[2019-08-17] MEDS: BUDESONIDE NEBS 0.5 MG/2 ML INH NEB SCH (20:38)
[2019-08-17] MEDS: CEFEPIME 2 GM in SODIUM CHL 0.9% 50ML MIN-BAG+ 50 ML IVPB SCH (21:09)
[2019-08-17] MEDS: methylPREDNISolone SODIUM SUC 40 MG/ML VIAL IV SCH (21:09)
[2019-08-17] MEDS: METOPROLOL SUCCINATE XL 50 MG TAB PO SCH (21:53)
[2019-08-17] MEDS: HYDROcodone 10MG/APAP 325MG 1 EA TAB PO PRN (21:53)
[2019-08-18] MEDS: LEVALBUTEROL NEBS 1.25 MG/3 ML VIAL INH SCH ×4 (00:19→20:57)
[2019-08-18] MEDS: CHLORPHENIRAMINE W/HYDROCODONE 5 ML UD PO PRN ×2 (00:37→20:32)
[2019-08-18] MEDS: methylPREDNISolone SODIUM SUC 40 MG/ML VIAL IV SCH ×3 (06:11→20:28)
[2019-08-18] MEDS ORDERED: SODIUM CHL 0.9% 50ML MIN-BAG+ 50 ML IVPB ONE ×2 (07:40→19:22)
[2019-08-18] MEDS ORDERED: CEFEPIME 2 GM VIAL ONE ×2 (07:41→19:23)
--- NOTE | 2019-08-18 07:41 | RAD ---
EXAM: Chest,2 Views CLINICAL HISTORY: Pneumonia TECHNIQUE: PA and lateral chest x-ray COMPARISON STUDY: CT chest August 17, 2019 FINDINGS: Hyperexpansion without consolidation, effusion, or edema. The heart is not enlarged. No acute osseous abnormality. Mild vascular calcifications are present. Benign calcified granulomatous lymph nodes are seen in the subcarinal and right hilum. There is a moderate-sized hiatal hernia. IMPRESSION: Hyperexpansion can be seen with emphysema, reactive airway disease or deep voluntary breath. No acute abnormality is identified. Electronically signed by: Luis Aguero MD 08/18/2019 7:40 AM [facility]
[2019-08-18] MEDS: BUDESONIDE NEBS 0.5 MG/2 ML INH NEB SCH ×2 (08:38→20:58)
[2019-08-18] MEDS: NON-FORMULARY MEDICATION 1 EA MIS (Fluticasone-Umeclidinium-Vilan [Trelegy Ellipta 100-62. IN SCH (09:16)
[2019-08-18] MEDS: LEVOTHYROXINE SODIUM 0.1 MG TAB PO SCH (09:21)
[2019-08-18] MEDS: SIMVASTATIN 20 MG TAB PO SCH (09:21)
[2019-08-18] MEDS: CEFEPIME 2 GM in SODIUM CHL 0.9% 50ML MIN-BAG+ 50 ML IVPB SCH ×2 (09:21→20:27)
[2019-08-18] MEDS: METOPROLOL SUCCINATE XL 50 MG TAB PO SCH ×2 (09:21→20:31)
[2019-08-18] MEDS: HYDROcodone 10MG/APAP 325MG 1 EA TAB PO PRN ×2 (09:34→20:38)
--- NOTE | 2019-08-18 14:20 | PN ---
SUPERVISING PHYSICIAN: Grupo Ramirez MD DATE: 08/18/19 SUBJECTIVE: The patient is sitting up in a chair, breathing easier. He is still having a cough, but still feels better than he did yesterday. OBJECTIVE: VITAL SIGNS: Blood pressure 133/78. Heart rate 80. Respiratory rate 20. Temperature 98.2. Oxygen saturation 95% on 3 liters via nasal cannula. GENERAL: Mr. Mcintyre is an 89-year-old male patient who is in no active distress currently NEUROLOGIC: Alert and oriented. LUNGS: Diffuse wheezing, but improved from yesterday. CARDIOVASCULAR: Irregular rate and rhythm. Normal S1, S2. ABDOMEN: Soft. Positive bowel sounds. GENITOURINARY: Deferred. EXTREMITIES: Lower extremities with no edema. LABORATORY: White count 9.7, hemoglobin 15.4, hematocrit 46.4, platelet count 211. Sodium 137, potassium 4.4, chloride 101, CO2 27, BUN 33, creatinine 1.66, glucose 140, calcium 8.8. RADIOLOGY: Chest x-ray not indicative of any acute cardiopulmonary process at this time. ASSESSMENT: 1. Bilateral pneumonia. 2. Chronic obstructive pulmonary disease exacerbation. 3. Acute kidney injury. 4. Atrial fibrillation with rapid ventricular response. 5. Hypertension. 6. Gastroesophageal reflux disease. 7. History of diastolic heart failure with no evidence of exacerbation. PLAN: Given the chest x-ray not showing infiltrates today, it is more likely an acute on chronic bronchitis picture. White count has improved, so I will continue the current antibiotics and reduce the steroids given his improvement. If he does okay, he will hopefully go home tomorrow with p.o. medications. We will also try and set him up with some home oxygen. He will need an ambulatory study. [id number]
[2019-08-18] MEDS: PANTOPRAZOLE SODIUM IV 40 MG VIAL IV SCH (16:30)
[2019-08-18] MEDS: SODIUM CHLORIDE 0.9% (FLUSH) 10 ML SYG IV SCH (20:27)
[2019-08-19] MEDS: LEVALBUTEROL NEBS 1.25 MG/3 ML VIAL INH SCH ×2 (01:44→08:46)
[2019-08-19] MEDS ORDERED: SODIUM CHL 0.9% 50ML MIN-BAG+ 50 ML IVPB ONE (07:50)
[2019-08-19] MEDS ORDERED: CEFEPIME 2 GM VIAL ONE (07:51)
[2019-08-19] MEDS: METOPROLOL SUCCINATE XL 50 MG TAB PO SCH (07:57)
[2019-08-19] MEDS: HYDROcodone 10MG/APAP 325MG 1 EA TAB PO PRN (07:57)
[2019-08-19] MEDS: LEVOTHYROXINE SODIUM 0.1 MG TAB PO SCH (07:57)
[2019-08-19] MEDS: SIMVASTATIN 20 MG TAB PO SCH (07:58)
[2019-08-19] MEDS: BUDESONIDE NEBS 0.5 MG/2 ML INH NEB SCH (08:46)
[2019-08-19] MEDS: CEFEPIME 2 GM in SODIUM CHL 0.9% 50ML MIN-BAG+ 50 ML IVPB SCH (08:57)
[2019-08-19] MEDS: NON-FORMULARY MEDICATION 1 EA MIS (Fluticasone-Umeclidinium-Vilan [Trelegy Ellipta 100-62. IN SCH (08:57)
[2019-08-19] MEDS: methylPREDNISolone SODIUM SUC 40 MG/ML VIAL IV SCH (08:57)
[2019-08-19] MEDS: SODIUM CHLORIDE 0.9% (FLUSH) 10 ML SYG IV SCH (08:57)
[2019-08-19 11:29] VITALS: BP 125/76; TEMP 98
--- NOTE | 2019-08-19 14:27 | DS ---
SUPERVISING PHYSICIAN: Grupo Ramirez MD ADMISSION DIAGNOSIS: 1. Bilateral pneumonia. 2. Chronic obstructive pulmonary disease exacerbation. 3. Acute kidney injury. 4. Atrial fibrillation with rapid ventricular response. 5. Hypertension. 6. Gastroesophageal reflux disease. 7. History of diastolic heart failure with no evidence of exacerbation. DISCHARGE DIAGNOSIS: 1. Bilateral pneumonia, resolved. 2. Chronic obstructive pulmonary disease exacerbation, improved. 3. Acute kidney injury. 4. Atrial fibrillation with rapid ventricular response, resolved. 5. Hypertension. 6. Gastroesophageal reflux disease. 7. History of diastolic heart failure with no acute exacerbation. HOSPITAL COURSE: This is an 89-year-old male patient who came to the Emergency Room with shortness of breath. He has a longstanding history of chronic obstructive pulmonary disease. His shortness of breath started about a week prior, but progressively got worse. Upon arrival in the Emergency Room, he was noted to be hypoxic. His O2 saturations were in the 80s. He was placed on oxygen and was given nebulizer treatments as well as corticosteroids. He had Rocephin as well as azithromycin given. His atrial fibrillation was also shown to have a rapid response, so he was given a diltiazem push which improved his heart rate. After the treatments, he did improve, but was not stable to go home. He did have a CTA of the chest due to the elevated D-dimer, however, it should be noted he is also on anticoagulation for his atrial fibrillation. There was no pulmonary embolism on the CTA. The patient improved dramatically overnight and his steroids were reduced. He tolerated the reduction of the steroids and the infiltrates that were initially seen on his chest x-ray had resolved. Likely, he was actually more of an acute on chronic bronchitis presentation rather than bilateral pneumonia presentation. The patient today is stable. His wheezing still persists, but is much better than it was initially. He is being discharged home on a tapering dose of prednisone, Xopenex nebulizers with Pulmicort as well. He is going to be using doxycycline for antibiotic. Home oxygen has been set up for the patient as well as nebulizer machine. He will followup with Dr. Mercedes on 08/26/19 at 0930 in the morning. Activity is as tolerated. Diet as tolerated. [facility][id number] [facility]
[2019-08-19 18:47] VITALS: O2SAT 93
== END 2019-08-19 12:45 | disposition home health service (06) | DRG 190 ==
LOC: ER 13:53 → OBSVTOIN 15:48 → MS 15:48
PROVIDERS: ADMIT Nurse Practitioner; ATTEND Nurse Practitioner
PROC: B32T1ZZ Computerized Tomography (CT Scan) of Left Pulmonary Artery using Low Osmolar Contrast (ICD-10-PCS; principal; 2019-08-17)
PROC: B3201ZZ Computerized Tomography (CT Scan) of Thoracic Aorta using Low Osmolar Contrast (ICD-10-PCS; 2019-08-17)
PROC: B32S1ZZ Computerized Tomography (CT Scan) of Right Pulmonary Artery using Low Osmolar Contrast (ICD-10-PCS; 2019-08-17)
DX: J44.1 Chronic obstructive pulmonary disease with (acute) exacerbation (principal); J18.9 Pneumonia, unspecified organism; N17.9 Acute kidney failure, unspecified; I50.30 Unspecified diastolic (congestive) heart failure; I48.20 Chronic atrial fibrillation, unspecified; J44.0 Chronic obstructive pulmonary disease with (acute) lower respiratory infection; I11.0 Hypertensive heart disease with heart failure; K21.9 Gastro-esophageal reflux disease without esophagitis; R09.02 Hypoxemia; R79.89 Other specified abnormal findings of blood chemistry; E78.5 Hyperlipidemia, unspecified; G89.29 Other chronic pain; M54.9 Dorsalgia, unspecified; E03.9 Hypothyroidism, unspecified; Z66 Do not resuscitate; Z79.01 Long term (current) use of anticoagulants; Z88.1 Allergy status to other antibiotic agents; Z87.891 Personal history of nicotine dependence; Z79.899 Other long term (current) drug therapy

== ENCOUNTER → 2019-09-28 | Outpatient (CLI) | payer MEDICARE | LOC: GMAE 14:25 | PROVIDERS: ATTEND Family Medicine | DX: N40.1 Benign prostatic hyperplasia with lower urinary tract symptoms (principal) ==

== ENCOUNTER → 2020-02-08 | Outpatient (CLI) | payer MEDICARE | LOC: GMAE 11:58 | PROVIDERS: ATTEND Family Medicine | DX: I10 Essential (primary) hypertension (principal) ==

== ENCOUNTER 2020-03-15 17:04 | Inpatient (IN) | payer MEDICARE ==
--- NOTE | 2020-03-15 17:05 | HP ---
SUPERVISING PHYSICIAN: Robert Oconnor MD CHIEF COMPLAINT: Shortness of breath. HISTORY OF PRESENT ILLNESS: This is an 89-year-old male patient who has had a long history of chronic obstructive pulmonary disease with frequent exacerbations. He called his primary care physician, Dr. Jose Mercedes, today because over the last two weeks, his shortness of breath had worsened to the point where he felt he should be seen. During his Telehealth visit, he was severely tachypneic and had accessory muscle use. He also had pitting edema around his ankles and been unable to take his medications due to his shortness of breath. He had difficulty getting to the bathroom to urinate, so he did not take his diuretic. He took multiple breathing treatments at home and they did not give him any relief. Dr. Mercedes called me and because of his extreme shortness of breath and history of chronic obstructive pulmonary disease, we directly admitted the patient to the hospital for exacerbation of COPD. He was COVID testing at the clinic and that result is pending. After admission to the hospital, lab work was drawn and WBCs were 4.9, but he did have a left shift on his differential. Hemoglobin 14, hematocrit 42. Sodium 134, potassium 4.3, chloride 100, calcium 8.7, magnesium 1.5. BUN 18, creatinine 1.19. Liver enzymes were basically within normal limits. Blood cultures were drawn. A chest x-ray was also done and it showed mild pulmonary edema with small right pleural effusion. He was given multiple breathing treatments in the hospital. He still continued to have shortness of breath with tachypnea. He received a dose of Solu-Medrol as well as Rocephin and azithromycin. PAST MEDICAL HISTORY: 1. Chronic obstructive pulmonary disease. 2. Hypertension. 3. Hyperlipidemia. 4. Gastroesophageal reflux disease. 5. Chronic back pain. 6. Hypothyroidism. 7. Atrial fibrillation, presently on metoprolol, but on no anticoagulants. 8. Diastolic heart failure with no current echocardiogram for review. 9. Questionable coagulopathy issues and is unable to take anticoagulant at this time. PAST SURGICAL HISTORY: 1. Appendectomy. 2. Cholecystectomy. 3. Laparoscopic knee surgery. 4. Bronchoscopy. OUTPATIENT MEDICATIONS: Per the EMR and awaiting verification. ALLERGIES: NO KNOWN DRUG ALLERGIES. FAMILY HISTORY: Unknown. SOCIAL HISTORY: He is . He lives in [place]. He has one child. He was previously a heavy smoker, but quit in 2004. He denies any ETOH or illicit drugs. REVIEW OF SYSTEMS: GENERAL: Negative for fever, fatigue or weight loss. HEENT: Negative for sinus symptoms, ear pain, vision changes or sore throat. RESPIRATORY: Positive for wheezing, coughing or shortness of breath. CARDIAC: Negative for chest pain, palpitations or tachycardia. GASTROINTESTINAL: Negative for nausea, vomiting, diarrhea, constipation. GENITOURINARY: Positive for increase frequency of urination. Negative for hematuria or dysuria. MUSCULOSKELETAL: Positive for extreme weakness. The patient was unable to walk more than 1 to 2 steps without getting extremely short of breath. Negative for arthralgias. NEUROLOGIC: Negative for headache or seizures. PHYSICAL EXAMINATION: VITAL SIGNS: Temperature 98.2, heart rate 126, blood pressure 150/93, respiratory rate 24 to 28, O2 saturation 90% to 92% on 2 liters nasal cannula. GENERAL: This is an 89-year-old male patient who is sitting up in high Ty's with moderate respiratory distress. HEENT: Normocephalic, atraumatic. Pupils are equal and reactive. Oropharynx is clear. NECK: Supple without mass. RESPIRATORY: Scattered rhonchi in the apices with bilateral expiratory wheezing throughout all lung francois. He is tachypneic. He can only speak in 2 to 3 word phrases. He does have some accessory muscle use. CHEST: There is equal rise and fall of the chest with inspiration and expiration. CARDIOVASCULAR: Tachycardic rate and irregular rhythm. Atrial fibrillation on the senior solutions engineer. His heart rate is running between the one-teens and 130s. GASTROINTESTINAL: Abdomen is soft, nondistended, nontender. Bowel sounds are positive. GENITOURINARY: Deferred. BACK: Deferred. EXTREMITIES: Bilateral edema, +1. Pedal pulses are palpable at +2. NEUROLOGIC: Awake, alert and oriented times three. Cranial nerves II-XII are grossly intact as tested. LABORATORY: Labs and films are as per history of present illness. IMPRESSION: 1. Acute exacerbation of chronic obstructive pulmonary disease with concerns for developing community acquired pneumonia. The patient had multiple breathing treatments at home with no relief. 2. High risk for COVID-19. Results are pending. 3. History of atrial fibrillation with rapid ventricular response. He does have an accelerated rate at this time in the one-teens to 120s, presently on no anticoagulants, but he is on metoprolol. 4. Chronic renal insufficiency. He is at his baseline creatinine. 5. Gastroesophageal reflux disease. 6. Hypothyroidism. 7. Hypertension. 8. History of diastolic heart failure. There is no current echocardiogram for review. He is on a diuretic and metoprolol. PLAN: The patient has been admitted to the hospital. He will get aggressive pulmonary hygiene including Xopenex scheduled and p.r.n. treatments. He received a dose of Solu-Medrol and we will titrate that to oral prednisone over the next day or two. I will also continue him on his azithromycin and Rocephin. I have encouraged him to use incentive spirometry as well. We should have the results from his COVID-19 from [facility] within the next hour, but he is presently in isolation until that is resulted. He also received his routine dose of metoprolol early due to his heart rate being accelerated although some of the tachycardia may be due to his anxiety as well as his multiple breathing treatments. I will give him a small amount of fluids overnight and he will be on Protonix for ulcer prophylaxis. I will hold on Lovenox for now because he has had to stop them in the past due to bleeding issues. At one time he said he had a "bleed in his lungs" due to anticoagulants. Will order SCDs and early ambulation for dvt prophylaxis. I will restart his home medications as soon as they are reviewed and confirmed. He may need an echocardiogram at some point as we do not have one presently. Otherwise, I have ordered routine lab for in the morning. We will continue to monitor the patient closely and follow as needed. #[id number] [facility]ENTER[facility]rett
[2020-03-15] MEDS ORDERED: ACETAMINOPHEN 325 MG TAB PO PRN (17:30)
[2020-03-15] MEDS ORDERED: ALBUTEROL SULFATE 2.5 MG/3 ML VIAL NEB PRN (17:30)
[2020-03-15] MEDS ORDERED: IV SET AND CAP CHANGE INJ INJ SCH (17:30)
[2020-03-15] MEDS ORDERED: SODIUM CHLORIDE 0.9% (FLUSH) 10 ML SYG IV PRN (17:30)
[2020-03-15] MEDS ORDERED: LEVALBUTEROL NEBS 1.25 MG/3 ML VIAL NEB ONE (17:43)
[2020-03-15] MEDS ORDERED: methylPREDNISolone SODIUM SUC 125 MG/2 ML VIAL IV ONE (17:45)
[2020-03-15] MEDS ORDERED: methylPREDNISolone SODIUM SUC 125 MG/2 ML VIAL ONE (17:46)
[2020-03-15] MEDS ORDERED: IPRATROPIUM/ALBUTEROL 3 ML VIAL INH SCH (18:00)
[2020-03-15] MEDS ORDERED: cefTRIAXone SODIUM 1 GM VIAL ONE (18:04)
[2020-03-15] MEDS ORDERED: SODIUM CHL 0.9% 100ML MINI-BAG 100 ML IVPB ONE (18:06)
[2020-03-15] MEDS: cefTRIAXone SODIUM 1 GM in SODIUM CHL 0.9% 50ML MIN-BAG+ 50 ML IVPB SCH (18:08)
--- NOTE | 2020-03-15 18:39 | RAD ---
XR CHEST 1 VIEW HISTORY: COPD exacerbation. COMPARISON: 08/18/2019 FINDINGS: The heart size is enlarged but stable. There is mild pulmonary vascular congestion. There is likely a small right pleural effusion. No consolidation or pneumothorax is seen. The bony structures are preserved. IMPRESSION: Query mild pulmonary edema with small right pleural effusion. Electronically signed by: Mario Antunez MD 03/15/2020 6:38 PM CDT
[2020-03-15] MEDS ORDERED: METOPROLOL TARTRATE 50 MG TAB PO ONE (19:04)
[2020-03-15] MEDS ORDERED: LEVALBUTEROL NEBS 1.25 MG/3 ML VIAL NEB PRN (19:05)
[2020-03-15] MEDS ORDERED: MAGNESIUM SULFATE PREMIX 2GM 2 GM in PREMIX BAG 1 BAG IVPB ONE (19:13)
[2020-03-15] MEDS ORDERED: MAGNESIUM SULFATE PREMIX 2GM 50 ML IVPB ONE (19:16)
[2020-03-15] MEDS ORDERED: SODIUM CHLORIDE 0.9% 250ML 250 ML ONE (19:26)
[2020-03-15] MEDS ORDERED: AZITHROMYCIN IV 500 MG VIAL IVPB ONE (19:26)
[2020-03-15] MEDS: AZITHROMYCIN IV 500 MG in SODIUM CHLORIDE 0.9% 250ML 250 ML IVPB SCH (19:27)
[2020-03-15] MEDS: LEVALBUTEROL NEBS 1.25 MG/3 ML VIAL NEB SCH (20:00)
[2020-03-15] MEDS ORDERED: SODIUM CHLORIDE 0.65% NASAL SPRAY 45 ML BTTL BNAS PRN (21:08)
[2020-03-15] MEDS: HYDROcodone 10MG/APAP 325MG 1 EA TAB PO PRN (21:33)
[2020-03-15] MEDS: SODIUM CHLORIDE 0.9% (FLUSH) 10 ML SYG IV SCH (21:33)
[2020-03-16] MEDS: methylPREDNISolone SODIUM SUC 40 MG/ML VIAL IV SCH ×3 (05:31→22:06)
[2020-03-16] MEDS: PANTOPRAZOLE SODIUM IV 40 MG VIAL IV SCH (05:36)
[2020-03-16] MEDS: LEVOTHYROXINE SODIUM 0.1 MG TAB PO SCH (05:36)
--- NOTE | 2020-03-16 07:28 | RAD ---
EXAM: XR Chest, 1 View CLINICAL HISTORY: The patient is 89 years old and is Male; copd exac TECHNIQUE: Single upright portable view of the chest. COMPARISON: March 15, 2020 5:55 PM. FINDINGS: Lungs: No pulmonary vascular congestion. Pleural space: Right pleural effusion. Right basilar infiltrate or atelectasis is increased. No pneumothorax. Heart: The cardiac silhouette is enlarged versus artifact of AP technique. Cardiomediastinal silhouette is not significantly changed given the differences in technique. Mediastinum: See above. Bones/joints: The bones and joints are unchanged as visualized. Upper abdomen: No free air in the visualized upper abdomen. IMPRESSION: Right pleural effusion. Right basilar infiltrate or atelectasis is increased. Electronically signed by: Karina Ledesma MD 03/16/2020 7:27 AM CDT
[2020-03-16] MEDS: HYDROcodone 10MG/APAP 325MG 1 EA TAB PO PRN ×4 (08:27→22:06)
--- NOTE | 2020-03-16 08:38 | PN ---
SUPERVISING PHYSICIAN: Robert Oconnor MD DATE: 03/16/20 SUBJECTIVE: The patient is sitting up in his chair in his room. He is still somewhat short of breath, but much improved since yesterday. He denies any chest pain, nausea or vomiting. OBJECTIVE: VITAL SIGNS: Temperature 79.6, heart rate 93 to 116, blood pressure 133/83, respiratory rate 22, O2 saturation 96% on 1 liter nasal cannula. RESPIRATORY: Diminished breath sounds throughout. There are a few scattered expiratory wheezes. No rhonchi. He is tachypneic and has to speak in 2 to 3 word phrases due to shortness of breath. CARDIAC: Normal to tachycardic rate, irregular rhythm. Atrial fibrillation on the court recording monitor. GASTROINTESTINAL: Abdomen is soft, nondistended, nontender. Bowel sounds are positive. NEUROLOGIC: Awake, alert and oriented times three. LABORATORY: WBCs 4.7, hemoglobin 13.7, hematocrit 40.3. He does have a left shift on his differential. Electrolytes are basically within normal limits with the exception of his chloride is slightly low at 100. Alkaline phosphatase 133. MICROBIOLOGY: Sputum culture pending. Blood cultures pending. RADIOLOGY: Chest x-ray shows right pleural effusion, right basilar infiltrate or atelectasis is increased. All other labs and films have been reviewed via the EMR. ASSESSMENT: 1. Acute exacerbation of chronic obstructive pulmonary disease with developing right lower lobe pneumonia, most likely community acquired. Initially, the patient had multiple breathing treatments at home and has had no relief. 2. High risk for COVID-19. His results are negative. 3. History of atrial fibrillation with rapid ventricular response. He does have an accelerated rate at this time in the one-teens to 120s, presently on no anticoagulants, but he is on metoprolol. 4. Chronic renal insufficiency. He is at his baseline creatinine. 5. Gastroesophageal reflux disease. 6. Hypothyroidism. 7. Hypertension. 8. History of diastolic heart failure. There is no current echocardiogram for review. He is on a diuretic and metoprolol. PLAN: We will continue present supportive care. I am not sure if he has oxygen at home. I will need to find that out and most likely he will need oxygen at home. I have added Mucinex and we will order chest x-ray and labs in the morning. We will continue with good, aggressive pulmonary hygiene. We will continue to monitor the patient closely and follow as needed. #[id number] [facility]
[2020-03-16] MEDS: LEVALBUTEROL NEBS 1.25 MG/3 ML VIAL NEB SCH ×4 (08:48→20:22)
[2020-03-16] MEDS ORDERED: FUROSEMIDE INJ 20 MG/2 ML VIAL ONE (08:49)
[2020-03-16] MEDS: METOPROLOL TARTRATE 50 MG TAB PO SCH ×2 (08:50→20:39)
[2020-03-16] MEDS ORDERED: FUROSEMIDE INJ 20 MG/2 ML VIAL IV ONE (09:00)
[2020-03-16] MEDS: SODIUM CHLORIDE 0.9% (FLUSH) 10 ML SYG IV SCH ×2 (09:43→20:39)
[2020-03-16] MEDS: FUROSEMIDE 40 MG TAB PO SCH (18:07)
[2020-03-16] MEDS: cefTRIAXone SODIUM 1 GM in SODIUM CHL 0.9% 50ML MIN-BAG+ 50 ML IVPB SCH (18:07)
[2020-03-16] MEDS ORDERED: methylPREDNISolone SODIUM SUC 40 MG/ML VIAL ONE (19:04)
[2020-03-16] MEDS: AZITHROMYCIN IV 500 MG in SODIUM CHLORIDE 0.9% 250ML 250 ML IVPB SCH (19:30)
[2020-03-16] MEDS: PRIMIDONE 50 MG TAB PO SCH (20:39)
[2020-03-17] MEDS: methylPREDNISolone SODIUM SUC 40 MG/ML VIAL IV SCH (05:33)
[2020-03-17] MEDS: PANTOPRAZOLE SODIUM IV 40 MG VIAL IV SCH (05:57)
[2020-03-17] MEDS: LEVOTHYROXINE SODIUM 0.1 MG TAB PO SCH (05:58)
[2020-03-17] MEDS ORDERED: LEVOTHYROXINE SODIUM 0.1 MG TAB PO SCH (06:30)
--- NOTE | 2020-03-17 06:38 | RAD ---
EXAM: XR Chest, 2 Views CLINICAL HISTORY: The patient is 89 years old and is Male; pna TECHNIQUE: Frontal and lateral views of the chest. COMPARISON: Chest radiograph March 16, 2020 FINDINGS: LUNGS: Improvement in the right lower lobe opacity is noted. The lungs are well-inflated. PLEURAL SPACE: A right pleural effusion is present. No pneumothorax. HEART: The cardiac silhouette is enlarged. MEDIASTINUM: Unremarkable. BONES/JOINTS: Unremarkable. VASCULATURE: Prominence of central vasculature is noted. IMPRESSION: Right pleural effusion with improved right basilar opacity. Electronically signed by: Natalie Martin MD 03/17/2020 6:37 AM CDT
[2020-03-17] MEDS: HYDROcodone 10MG/APAP 325MG 1 EA TAB PO PRN (08:00)
[2020-03-17] MEDS: LEVALBUTEROL NEBS 1.25 MG/3 ML VIAL NEB SCH ×2 (08:25→16:51)
[2020-03-17] MEDS: METOPROLOL TARTRATE 50 MG TAB PO SCH (08:54)
[2020-03-17] MEDS: SODIUM CHLORIDE 0.9% (FLUSH) 10 ML SYG IV SCH (08:55)
[2020-03-17] MEDS: FUROSEMIDE 40 MG TAB PO SCH (08:59)
[2020-03-17] MEDS: PRIMIDONE 50 MG TAB PO SCH (08:59)
[2020-03-17] MEDS ORDERED: predniSONE 20 MG TAB PO SCH (09:00)
[2020-03-17] MEDS ORDERED: ALUM & MAG HYDROX-SIMETHICONE 30 ML UD PO ONE (12:39)
[2020-03-17 13:09] VITALS: BP 130/73; TEMP 98; O2SAT 95
--- NOTE | 2020-03-21 15:16 | DS ---
SUPERVISING PHYSICIAN: Robert Oconnor MD ADMISSION DIAGNOSIS: 1. Acute exacerbation of chronic obstructive pulmonary disease with concerns for developing community acquired pneumonia. The patient had multiple breathing treatments at home with no relief. 2. High risk for COVID-19. Results are pending. 3. History of atrial fibrillation with rapid ventricular response. He does have an accelerated rate at this time in the one-teens to 120s, presently on no anticoagulants, but he is on metoprolol. 4. Chronic renal insufficiency. He is at his baseline creatinine. 5. Gastroesophageal reflux disease. 6. Hypothyroidism. 7. Hypertension. 8. History of diastolic heart failure. There is no current echocardiogram for review. He is on a diuretic and metoprolol. DISCHARGE DIAGNOSIS: 1. Acute exacerbation of chronic obstructive pulmonary disease with right lower lobe pneumonia, community acquired. 2. COVID-19 testing negative. 3. Chronic atrial fibrillation with rapid ventricular response. Controlled rate at discharge. 4. Chronic renal insufficiency at baseline creatinine levels. 5. Gastroesophageal reflux disease. 6. Hypothyroidism. 7. Hypertension. 8. History of diastolic heart failure. There is no current echocardiogram for review. He is on a diuretic and metoprolol. REASON FOR HOSPITALIZATION: This is an 89-year-old male patient who has had a long history of chronic obstructive pulmonary disease with frequent exacerbations. He called his primary care physician, Dr. Jose Mercedes, today because over the last two weeks, his shortness of breath had worsened to the point where he felt he should be seen. During his Telehealth visit, he was severely tachypneic and had accessory muscle use. He also had pitting edema around his ankles and been unable to take his medications due to his shortness of breath. He had difficulty getting to the bathroom to urinate, so he did not take his diuretic. He took multiple breathing treatments at home and they did not give him any relief. Dr. Mercedes called me and because of his extreme shortness of breath and history of chronic obstructive pulmonary disease, we directly admitted the patient to the hospital for exacerbation of COPD. He was COVID testing at the clinic and that result is pending. After admission to the hospital, lab work was drawn and WBCs were 4.9, but he did have a left shift on his differential. Hemoglobin 14, hematocrit 42. Sodium 134, potassium 4.3, chloride 100, calcium 8.7, magnesium 1.5. BUN 18, creatinine 1.19. Liver enzymes were basically within normal limits. Blood cultures were drawn. A chest x-ray was also done and it showed mild pulmonary edema with small right pleural effusion. He was given multiple breathing treatments in the hospital. He still continued to have shortness of breath with tachypnea. He received a dose of Solu-Medrol as well as Rocephin and azithromycin. LABORATORY: At discharge, white count 5,800, hemoglobin 13.9, hematocrit 41.2, platelet count 138,000. Differential did show a left shift. Coagulation studies showed PT 12.9, PTT 27.4. Chemistry on discharge showed normal electrolytes. Creatinine is at baseline levels of 1.18. Calcium 8.3. Liver functions all within normal limits. Alkaline phosphatase a little elevated at 122. MICROBIOLOGY: Blood cultures show no growth at 5 days. Sputum culture final results show moderate mixed normal respiratory melba. RADIOLOGY: Final chest x-ray on discharge per radiologic interpretation showed right pleural effusion with improved right basilar opacity. HOSPITAL COURSE: Mr. Mcintyre was admitted for right lobe pneumonia treated with antibiotics with Rocephin and azithromycin, aggressive pulmonary hygiene, breathing treatments. He tested negative for COVID-19. He did show good clinical improvement. He also was started on Solu-Medrol while in the hospital. He clinically improved enough to continue with outpatient management on discharge. PLAN: Mr. Mcintyre was discharged to continue treatment with antibiotics to include Levaquin that had been prescribed prior to hospitalization, but I also wrote him script for continued antibiotics if he did not successfully fill his prescription as he had noted which was to include azithromycin and Ceftin. He was to resume his usual diet, increase his activity as tolerate, continue with aggressive pulmonary hygiene with incentive spirometry, continue his breathing treatments at home. He is to followup with Dr. Mercedes and call their office on Friday for followup appointment time. After review of his medical records and clinical note prior to admission, he had received a prescription for continued prednisone 40 mg daily and he is to continue that as instructed by Dr. Mercedes. Again, he is to call Dr. Mercedes's office on Friday to ensure he gets all his scripts filled and adequate treatment continued. He was given warnings to return to the ER should he have any concerning symptoms and contact Dr. Mercedes's office for any questions. DISCHARGE ASSESSMENT: VITAL SIGNS: Temperature 98, pulse 97, blood pressure 130/72, respirations 18, saturation 95% on 1 liter nasal cannula. CHEST: Lung sounds diminished towards the bases, but improved from initial admission. He was showing no signs of distress. He had very faint coarse sound heard in the right lower lobe which was more prominent on the posterolateral aspect. HEART: Regular rate and rhythm showing tachycardic on monitor, but controlled in atrial fibrillation. ABDOMEN: Soft, nontender. Positive bowel sounds. EXTREMITIES: No edema. NEUROLOGIC: Alert and oriented x3. CONDITION ON DISCHARGE: Stable and improved. DISPOSITION: The patient is discharged home. [facility][id number] [facility]
== END 2020-03-17 13:40 | disposition home or self-care (01) | DRG 190 ==
LOC: MS 17:04 → UNDOADMOB 17:04 → OBSVTOIN 20:25 → MS 20:25
PROVIDERS: ADMIT Nurse Practitioner Family; ATTEND Nurse Practitioner Acute Care
DX: J44.1 Chronic obstructive pulmonary disease with (acute) exacerbation (principal); J18.9 Pneumonia, unspecified organism; I48.20 Chronic atrial fibrillation, unspecified; I13.0 Hypertensive heart and chronic kidney disease with heart failure and stage 1 through stage 4 chronic kidney disease, or unspecified chronic kidney disease; I50.32 Chronic diastolic (congestive) heart failure; J44.0 Chronic obstructive pulmonary disease with (acute) lower respiratory infection; N18.9 Chronic kidney disease, unspecified; K21.9 Gastro-esophageal reflux disease without esophagitis; E03.9 Hypothyroidism, unspecified; E78.5 Hyperlipidemia, unspecified; G89.29 Other chronic pain; F41.9 Anxiety disorder, unspecified; M54.9 Dorsalgia, unspecified; Z66 Do not resuscitate; Z87.891 Personal history of nicotine dependence

== ENCOUNTER 2020-03-22 14:00 | Observation (INO) | payer MEDICARE ==
--- NOTE | 2020-03-22 14:26 | RAD ---
EXAM DESCRIPTION: Chest,1 View CLINICAL HISTORY: 89 years Male, CP COMPARISON: Previous study March 17, 2020 TECHNIQUE: AP portable chest. FINDINGS: Heart size is large with centrally prominent pulmonary vascularity. No consolidating infiltrate. No pulmonary mass or worrisome nodule. No pneumothorax. Blunting of the right costophrenic angle suggests small pleural effusion. Bones are unremarkable. IMPRESSION: Large heart with centrally prominent pulmonary vascularity. Small right pleural effusion. Electronically signed by: Evens Singh MD 03/22/2020 2:24 PM CDT
--- NOTE | 2020-03-22 15:01 | ED.PDOC ---
History of Present Illness - General Chief Complaint: Cardiovascular Problem Time Seen by Provider: 03/22/20 14:09 Source: patient Exam Limitations: no limitations - History of Present Illness Initial Comments: 89 yo M with PMH sig for COPD intermittently on oxygen, a fib not on anticoagulation, CHF on lasix, who presents for nausea, congestion, post nasal drip, worsening wheezing and SOB despite treatments at home, worsening LE edema, palpitations, productive cough, generalized weakness. Reports compliance with medications. Recent admission for COPD at [facility], is currently on prednisone. Pt is in a fib, reported palpitations and some chest discomfort, was in RVR en route with rate in 160's, RVR resolved after diltiazem bolus. Pt states he is still shaky, he is wondering if it was the albuterol he took. Denies f/c, congestion, runny nose, abd pain, v/d, urinary sx. Allergies/Adverse Reactions: Allergies Albuterol Adverse Reaction (Intermediate, Verified 03/22/20 21:21) Other may have xopenex; he gets very agitated and jittery with albuterol Home Medications: Ambulatory Orders RX: Metoprolol Succinate [Metoprolol Succinate ER] 50 mg PO BID 11/20/15 RX: Omeprazole 20 mg PO DAILY 11/20/15 RX: Simvastatin [Zocor] 20 mg PO DAILY 11/20/15 Potassium 10 meq PO BID 07/18/18 RX: Levothyroxine Sodium [Synthroid] 0.1 mg PO QAM 07/18/18 RX: Ferrous Gluconate [Fergon] 27 mg PO DAILY 08/17/19 RX: HYDROcodone 10MG/APAP 325MG [[place] 10/325] 1 tab PO QID PRN 08/17/19 RX: Torsemide 40 mg PO BID 08/17/19 RX: Levalbuterol Nebs [Xopenex NEBS] 1.25 mg INH Q6H 30 Days #1 vial 08/19/19 RX: Primidone 50 mg PO BID 03/16/20 Levofloxacin 750 mg PO DAILY 03/17/20 Prednisone 40 mg PO DAILY 03/17/20 Review of Systems - Review of Systems Constitutional: Denies: chills, fever EENTM: States: nose congestion. Denies: eye pain, blurred vision, double vision, throat pain Respiratory: States: cough, short of breath, wheezing Cardiology: States: edema, palpitations. Denies: chest pain, syncope Gastrointestinal/Abdominal: States: nausea. Denies: abdominal pain, constipation, diarrhea, vomiting Genitourinary: Denies: dysuria, frequency, hematuria Musculoskeletal: Denies: back pain, neck pain Skin: Denies: lesions, rash Neurological: States: weakness - generalized. Denies: headache, numbness Past Medical History (General) - Patient Medical History Hx Seizures: No Hx Stroke: No Hx Asthma: No Hx of COPD: Yes Hx Cardiac Disorders: Yes - Hyperlipidemia Hx Congestive Heart Failure: Yes Hx Pacemaker: No Hx Hypertension: No Hx Thyroid Disease: Yes Hx Diabetes: No Hx Gastroesophageal Reflux: Yes Hx MRSA: No MRSA Source:: Wound - Vaccination History Hx Tetanus, Diphtheria Vaccination: - unknown Hx Influenza Vaccination: No Hx Pneumococcal Vaccination: No - Social History Hx Tobacco Use: Yes - Quit 2004 Hx Chewing Tobacco Use: No Hx Alcohol Use: No Hx Substance Use: No Hx Substance Use Treatment: No Hx Depression: No Hx Physical Abuse: No Hx Emotional Abuse: No - Female History Patient : No Family Medical History - Family History Mother Family History: Unknown Living Status: Physical Exam - Physical Exam General Appearance: Alert, Comfortable, No apparent distress, Well Developed, Well Nourished Eyes, Ears, Nose, Throat Exam: PERRL/EOMI, normal ENT inspection Neck: non-tender, full range of motion, supple Respiratory: chest non-tender, lungs clear, no respiratory distress, no accessory muscle use, decreased breath sounds, wheezing Cardiovascular/Chest: normal peripheral pulses, no murmur, irregularly irregular, other - 2+ pitting edema, symmetric BLE Peripheral Pulses: radial,right: 2+, radial,left: 2+ Gastrointestinal/Abdominal: normal bowel sounds, non tender, soft, no organomegaly, no pulsatile mass Extremity: normal range of motion, non-tender, no calf tenderness Neurologic: no motor/sensory deficits, alert, normal mood/affect Skin Exam: normal color, warm/dry Progress - Progress Progress: 03/22/20 16:01 Rechecked pt, offered admission, he declines, 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 Has not been taking his lasix, will give IV dose in ED. Feeling much improved after duoneb, CTAB. After chart review, on d/c he is on multiple antibx and prednisone for COPD exacerbation and possible community acquired pneumonia, reports compliance to those medications and states he will continue taking as prescribed. Will repeat trop and observed, no repeat episodes of RVR. 03/22/20 17:49 Discussed with Sanjuanita, who subsequently discussed with Dr. Mercedes. They checked and pt has not picked up his prescriptions since d/. If pt is willing, Sanjuanita will admit. I relayed information to pt, he is comfortable with admission. He states she is anxious, mild tremors from anxiety, will give Benadryl IV. Jessica Juan MD Emergency Medicine Physician Billing Number [id number] - Results/Orders Results/Orders: 03/22/20 16:00 EKG STAT Laboratory Results - last 24 hr 03/22/20 03/22/20 03/22/20 14:18 14:18 14:18 WBC 6.0 RBC 4.50 L Hgb 14.0 Hct 41.7 L MCV 92.8 MCH 31.0 MCHC 33.4 RDW 14.6 H Plt Count 137 MPV 8.1 Absolute Neuts (auto) 4.30 Absolute Lymphs (auto) 0.90 L Absolute Monos (auto) 0.70 Absolute Eos (auto) 0.00 Absolute Basos (auto) 0.00 Neutrophils % 72.2 Lymphocytes % 14.6 L Monocytes % 11.8 H Eosinophils % 0.7 L Basophils % 0.7 Sodium 135 Potassium 3.7 Chloride 96 L Carbon Dioxide 21 Anion Gap 21.7 H BUN 32 H Creatinine 1.55 H BUN/Creatinine Ratio 20.6 H Random Glucose 111 H Serum Osmolality 277.7 Calcium 7.4 L Total Bilirubin 1.1 H AST 21 ALT 17 Alkaline Phosphatase 103 Troponin I 0.03 B-Natriuretic Peptide Serum Total Protein 7.3 Albumin 3.9 Globulin 3.4 Albumin/Globulin Ratio 1.1 Urine Color Urine Appearance Urine pH Ur Specific [place] Urine Protein Urine Glucose (UA) Urine Ketones Urine Blood Urine Nitrite Urine Bilirubin Urine Urobilinogen Ur Leukocyte Esterase Urine RBC Urine WBC Ur Epithelial Cells Amorphous Sediment Urine Bacteria 03/22/20 03/22/20 03/22/20 14:18 16:12 17:00 WBC RBC Hgb Hct MCV MCH MCHC RDW Plt Count MPV Absolute Neuts (auto) Absolute Lymphs (auto) Absolute Monos (auto) Absolute Eos (auto) Absolute Basos (auto) Neutrophils % Lymphocytes % Monocytes % Eosinophils % Basophils % Sodium Potassium Chloride Carbon Dioxide Anion Gap BUN Creatinine BUN/Creatinine Ratio Random Glucose Serum Osmolality Calcium Total Bilirubin AST ALT Alkaline Phosphatase Troponin I 0.03 B-Natriuretic Peptide 17.0 Serum Total Protein Albumin Globulin Albumin/Globulin Ratio Urine Color Yellow Urine Appearance Clear Urine pH 5.5 Ur Specific [place] 1.020 Urine Protein Trace Urine Glucose (UA) Negative Urine Ketones 40 H Urine Blood Negative Urine Nitrite Negative Urine Bilirubin Small H Urine Urobilinogen 0.2 Ur Leukocyte Esterase Negative Urine RBC 0-1 Urine WBC 0-1 Ur Epithelial Cells 0-1 Amorphous Sediment 1+ Urine Bacteria 0 CXR: EXAM DESCRIPTION: Chest,1 View CLINICAL HISTORY: 89 years Male, CP COMPARISON: Previous study March 17, 2020 TECHNIQUE: AP portable chest. FINDINGS: Heart size is large with centrally prominent pulmonary vascularity. No consolidating infiltrate. No pulmonary mass or worrisome nodule. No pneumothorax. Blunting of the right costophrenic angle suggests small pleural effusion. Bones are unremarkable. IMPRESSION: Large heart with centrally prominent pulmonary vascularity. Small right pleural effusion. Electronically signed by: Evens Singh MD 03/22/2020 2:24 PM CDT Vital Signs - 24 hr 03/22/20 03/22/20 03/22/20 14:00 14:09 15:00 Temperature 97.9 F 98.0 F Pulse Rate Pulse Rate [ 101 H 75 75 tele] Respiratory 101 H 20 23 Rate Blood Pressure 134/82 134/82 123/83 [right brachial ] O2 Sat by Pulse 97 94 L 97 Oximetry 03/22/20 03/22/20 15:02 17:00 Temperature 97.9 F Pulse Rate 85 Pulse Rate [ 107 H tele] Respiratory 20 20 Rate Blood Pressure 156/109 [right brachial ] O2 Sat by Pulse 96 90 L Oximetry - EKG/XRAY/CT EKG: nonspecific ST T wave Chg Comments: A fib, rate 80, L axis Departure - Departure Clinical Impression: SOB (shortness of breath), Heart palpitations, Anxiety Chest pain, unspecified Qualifiers: Chest pain type: unspecified Qualified Code(s): R07.9 - Chest pain, unspecified COPD (chronic obstructive pulmonary disease) Qualifiers: COPD type: unspecified COPD Qualified Code(s): J44.9 - Chronic obstructive pulmonary disease, unspecified Volume overload Qualifiers: Hypervolemia type: unspecified Qualified Code(s): E87.70 - Fluid overload, unspecified Time of Disposition: 19:43 Disposition: Admit Patient Condition: Fair Home Medications: Ambulatory Orders RX: Metoprolol Succinate [Metoprolol Succinate ER] 50 mg PO BID 11/20/15 RX: Omeprazole 20 mg PO DAILY 11/20/15 RX: Simvastatin [Zocor] 20 mg PO DAILY 11/20/15 Potassium 10 meq PO BID 07/18/18 RX: Levothyroxine Sodium [Synthroid] 0.1 mg PO QAM 07/18/18 RX: Ferrous Gluconate [Fergon] 27 mg PO DAILY 08/17/19 RX: HYDROcodone 10MG/APAP 325MG [[place] 10/325] 1 tab PO QID PRN 08/17/19 RX: Torsemide 40 mg PO BID 08/17/19 RX: Levalbuterol Nebs [Xopenex NEBS] 1.25 mg INH Q6H 30 Days #1 vial 08/19/19 RX: Primidone 50 mg PO BID 03/16/20 Levofloxacin 750 mg PO DAILY 03/17/20 Prednisone 40 mg PO DAILY 03/17/20
[2020-03-22] MEDS ORDERED: IPRATROPIUM/ALBUTEROL 3 ML VIAL NEB ONE ×2 (15:12→15:54)
[2020-03-22] MEDS ORDERED: FUROSEMIDE INJ 40 MG/4 ML VIAL IV ONE (16:01)
[2020-03-22] MEDS ORDERED: diphenhydrAMINE HCL 50 MG/ML VIAL IV ONE (17:49)
--- NOTE | 2020-03-22 19:01 | HP ---
SUPERVISING PHYSICIAN: Mary Mercedes MD CHIEF COMPLAINT: "I just don't feel right." HISTORY OF PRESENT ILLNESS: This is an 89-year-old male that has significant past medical history of chronic obstructive pulmonary disease on home O2. He also has atrial fibrillation and congestive heart failure. He actually has been in the hospital multiple times over the last few months. He is poorly compliant with his medications. He also takes care of his who has severe dementia and he is unable to drive. He also has panic attacks and he came into the hospital complaining of "feeling poorly." He had nausea with some nasal congestion, wheezing and shortness of breath. He actually had been in the hospital last week for pneumonia. He also has lower extremity edema and frequently will not take his Lasix because he is unable to get up and urinate due to his weakness and shortness of breath. He was sent home on a cephalosporin and another antibiotic as well as a prednisone taper. He did not get those filled. When he arrived at the hospital, he was in atrial fibrillation with rapid ventricular response with a rate in the 160s. He was given a Cardizem bolus initially and then after he was in the ER, his temperature was 97.9 with a heart rate of 101, blood pressure 134/82, respiratory rate 23 to 26 and an O2 saturation in the low 90s. Lab studies were done and his WBCs were 6 with hemoglobin 14, hematocrit 41.7. Sodium 135, potassium 3.7, chloride 96, carbon dioxide 21, BUN 32, creatinine 1.55. Calcium 7.4, total bilirubin 1.1, troponins negative. The remainder of his liver enzymes were negative. His urine had 40 urine ketones and a small amount of urine bilirubin. His chest x-ray shows large heart with centrally prominent pulmonary vasculature and a small right pleural effusion. In the ER, he was given some Lasix as well as several DuoNeb treatments. Albuterol tends to make him very anxious and jittery and was then given some diphenhydramine. He was recently tested for COVID-19 and it was negative. He has not been exposed, nor has he been out of his house since discharge. Due to his weakness, shortness of breath and inability to take care of himself, the patient was admitted to the hospital. PAST MEDICAL HISTORY: 1. Chronic obstructive pulmonary disease. 2. Hypertension. 3. Gastroesophageal reflux disease. 4. Chronic back pain. 5. Hypothyroidism. 6. Hyperlipidemia. 7. Atrial fibrillation, presently on metoprolol, but on no anticoagulants. 8. Diastolic heart failure with no current echocardiogram for review. 9. Questionable coagulopathy problems as he has had adverse reactions to anticoagulants with bleeding. PAST SURGICAL HISTORY: 1. Appendectomy. 2. Cholecystectomy. 3. Laparoscopic knee surgery. 4. Bronchoscopy. OUTPATIENT MEDICATIONS: Per the EMR and awaiting verification. ALLERGIES: NO KNOWN DRUG ALLERGIES, but he does have an adverse reaction to albuterol and anticoagulants. FAMILY HISTORY: Unknown. SOCIAL HISTORY: He is . He lives in [place]. He has one child. He was previously a heavy smoker, but quit in 2004. He denies any ETOH or illicit drugs. His has severe dementia. REVIEW OF SYSTEMS: GENERAL: Positive for fatigue. Negative for fever or weight loss. HEENT: Positive for nasal congestion and some mild sinus symptoms. Negative for vision changes or sore throat. RESPIRATORY: Positive for wheezing, coughing or shortness of breath. CARDIAC: Positive for palpitations. Negative for chest pain or tachycardia. GASTROINTESTINAL: Positive for nausea. Negative for vomiting, diarrhea, constipation. GENITOURINARY: Positive for increase frequency of urination if he takes his Lasix, so he frequently does not take his diuretics. Negative for hematuria or dysuria. MUSCULOSKELETAL: Positive for extreme weakness. He has a very difficult time walking and is mostly immobile. He also gets extremely short of breath with taking 1 to 2 steps. NEUROLOGIC: Positive for weakness. Negative for headache or seizures. PHYSICAL EXAMINATION: VITAL SIGNS: Temperature 97.7, heart rate 98 to 122, blood pressure 160/80, respiratory rate 22, O2 saturation 97%. GENERAL: This is an 89-year-old male patient who is visibly anxious and in mild respiratory distress. HEENT: Normocephalic, atraumatic. Pupils are equal and reactive. Oropharynx is clear. NECK: Supple without mass. RESPIRATORY: Diminished breath sounds throughout, but otherwise clear to auscultation. He is visibly tachypneic and he can only speak in 1 to 2 word phrases. CHEST: There is equal rise and fall of the chest with inspiration and expiration. CARDIOVASCULAR: Tachycardic rate and irregular rhythm. Atrial fibrillation on the can labeler. GASTROINTESTINAL: Abdomen is soft, nondistended, nontender. Bowel sounds are positive. GENITOURINARY: Deferred. BACK: Deferred. EXTREMITIES: Bilateral lower edema, +2. Pedal pulses are palpable. NEUROLOGIC: Awake, alert and oriented times three. Cranial nerves II-XII are grossly intact as tested. PSYCHOLOGICAL: He is very anxious and almost tearful at times. LABORATORY: Labs and films are as per history of present illness. IMPRESSION: 1. Acute exacerbation of chronic obstructive pulmonary disease with recent hospitalization for pneumonia although his chest x-ray is clear. 2. Panic attacks that are exacerbating #1. 3. Mild fluid overload with a normal BNP of 17. 4. Congestive heart failure, diastolic in etiology. There is no echocardiogram to review on the chart. 5. Acute on chronic renal failure. His baseline creatinine is 1.1. His admitting creatinine is 1.55. 6. History of atrial fibrillation with rapid ventricular response. He did receive a dose of Cardizem en route to the hospital. He is on metoprolol, but presently on no anticoagulants due to an adverse reaction and bleeding problems. 7. Hypothyroidism on supplementation. 8. Hypertension. 9. Hyperlipidemia. PLAN: The patient has been placed in observation. He did not fill his antibiotic prescriptions at discharge last week, so I will put him on cefepime. I will also put him on some low dose IV steroids until we can titrate him off those to his oral dosing. I have put him on aggressive pulmonary hygiene with Xopenex treatments, both p.r.n. and scheduled. He will also have some Ativan for his anxiety. I have consulted Instrument Lens Inspector as it would be helpful for him to be at a retirement facility as well as his . She is driving and is severely demented and the patient is unable to drive and can no longer take care of the both of them. He did agree that he needed help. I am going to start the patient on a very low dose of Celexa and maybe that will help with his anxiety. I will restart his home medications once they are verified. He will have a proton pump inhibitor for ulcer prophylaxis and I will hold on the Lovenox for now due to his adverse reaction with anticoagulants. I will put him on SCDs for DVT prophylaxis. I will also order an echocardiogram as I cannot find one on the chart. It also may be beneficial to get a code status clarified on this patient. I have ordered labs for in the morning. We will continue to monitor the patient closely and follow as needed. #[id number] [facility]
[2020-03-22] MEDS ORDERED: DEXTROSE 50% 25 GM/50 ML SYG IV PRN (19:18)
[2020-03-22] MEDS ORDERED: GLUCAGON INJ 1 MG VIAL SUBCU PRN (19:18)
[2020-03-22] MEDS ORDERED: ONDANSETRON INJ 4 MG/2 ML VIAL IV PRN (19:21)
[2020-03-22] MEDS ORDERED: SODIUM CHLORIDE 0.9% (FLUSH) 10 ML SYG IV PRN (19:21)
[2020-03-22] MEDS ORDERED: LEVALBUTEROL NEBS 1.25 MG/3 ML VIAL INH PRN (19:21)
[2020-03-22] MEDS ORDERED: methylPREDNISolone SODIUM SUC 40 MG/ML VIAL IV ONE (19:29)
[2020-03-22] MEDS ORDERED: IV SET AND CAP CHANGE INJ INJ SCH (19:30)
[2020-03-22] MEDS ORDERED: SODIUM CHL 0.9% 100ML MINI-BAG 100 ML IVPB ONE (19:54)
[2020-03-22] MEDS ORDERED: CEFEPIME 2 GM VIAL ONE (19:54)
[2020-03-22] MEDS: CEFEPIME 2 GM in SODIUM CHL 0.9% 100ML MINI-BAG 100 ML IVPB SCH (20:36)
[2020-03-22] MEDS: SODIUM CHLORIDE 0.9% (FLUSH) 10 ML SYG IV SCH (20:37)
[2020-03-22] MEDS: LEVALBUTEROL NEBS 1.25 MG/3 ML VIAL INH SCH (21:35)
[2020-03-22] MEDS: INSULIN LISPRO 100 UNITS/ML PEN SUBCU SCH (22:03)
[2020-03-22] MEDS: METOPROLOL TARTRATE 50 MG TAB PO SCH (22:22)
[2020-03-22] MEDS: HYDROcodone 10MG/APAP 325MG 1 EA TAB PO PRN (22:22)
[2020-03-22] MEDS ORDERED: diphenhydrAMINE HCL 25 MG CAP ONE (22:30)
[2020-03-22] MEDS: diphenhydrAMINE HCL 25 MG CAP PO PRN (22:34)
[2020-03-23] MEDS: INSULIN LISPRO 100 UNITS/ML PEN SUBCU SCH ×4 (07:13→21:49)
[2020-03-23] MEDS ORDERED: CEFEPIME 2 GM VIAL ONE (07:20)
[2020-03-23] MEDS ORDERED: SODIUM CHL 0.9% 100ML MINI-BAG 100 ML IVPB ONE (07:21)
[2020-03-23] MEDS: CITALOPRAM HBR 20 MG TAB PO SCH (08:00)
[2020-03-23] MEDS: METOPROLOL TARTRATE 50 MG TAB PO SCH ×2 (08:00→20:35)
[2020-03-23] MEDS: HYDROcodone 10MG/APAP 325MG 1 EA TAB PO PRN ×4 (08:00→22:26)
[2020-03-23] MEDS: methylPREDNISolone SODIUM SUC 40 MG/ML VIAL IV SCH (08:01)
[2020-03-23] MEDS: CEFEPIME 2 GM in SODIUM CHL 0.9% 100ML MINI-BAG 100 ML IVPB SCH ×2 (08:01→19:39)
[2020-03-23] MEDS: FUROSEMIDE INJ 40 MG/4 ML VIAL IV SCH ×2 (08:01→17:39)
[2020-03-23] MEDS: SODIUM CHLORIDE 0.9% (FLUSH) 10 ML SYG IV SCH ×2 (08:02→20:35)
[2020-03-23] MEDS: LEVALBUTEROL NEBS 1.25 MG/3 ML VIAL INH SCH ×4 (08:35→20:30)
[2020-03-23] MEDS ORDERED: ALPRAZolam 0.25 MG TAB PO ONE ×2 (10:03→12:46)
--- NOTE | 2020-03-23 11:15 | RAD ---
EXAM DESCRIPTION: Chest,2 Views CLINICAL HISTORY: COPD COMPARISON: Chest radiograph dated March 22, 2020 TECHNIQUE: Two-view radiograph of the chest FINDINGS: Calcific atherosclerosis and mild tortuosity of the thoracic aorta. Cardiac silhouette shows cardiomegaly. Pulmonary vascularity are within normal limits. Blunted right costophrenic angle compatible with small right-sided pleural effusion. No significant left-sided pleural effusion. Hazy opacities in the bilateral lung bases, right greater than left, most compatible with atelectasis. Underlying infiltrate cannot be entirely excluded. There is no pneumothorax. No acute osseous abnormality. IMPRESSION: 1. Cardiomegaly without congestive heart failure. 2. Small right-sided pleural effusion. 3. Hazy opacities bilateral lung bases, right greater than left, most compatible with atelectasis. Underlying infiltrate cannot entirely excluded. Electronically signed by: Jose Frederick MD 03/23/2020 11:14 AM CDT
--- NOTE | 2020-03-23 16:53 | PN ---
SUPERVISING PHYSICIAN: Holland Mercedes M.D. DATE: 03/23/20 SUBJECTIVE: The patient is still having some anxiety levels, but he feels like he is breathing easier since he had a lot of Lasix and diuresed off well. After discussion with him and with Dr. Mercedes, the patient apparently has not been taking his Lasix at home because he does not want to go to the bathroom as much and recently from past hospitalization he had never gotten his medications filled as requested on discharge. He has had no nausea or vomiting. Denies any chest pains. OBJECTIVE: VITAL SIGNS: Pulse 97, blood pressure 151/76, respirations 16, satting 98% on 2 liters nasal cannula. GENERAL: The patient just got back from Radiology. He is standing up. He appears a little stressed. Does not appear to be in any acute distress. His main concern is that he feels stressed and worried. He reports that low dose Xanax has helped tremendously. CHEST: He denies any chest pains. His shortness of breath is better. Lung sounds were actually clear, just a little diminished towards the bases. No obvious rhonchi, wheezing or rales. HEART: Regular rate and rhythm. ABDOMEN: Soft, non-tender. Positive bowel sounds. EXTREMITIES: Without any edema. NEUROLOGIC: He is alert and oriented times three. LABORATORY STUDIES: White count 5,100, hemoglobin 14.5, hematocrit 43.1, platelet count 124,000. Differential shows just a slight left shift. Chemistries show normal electrolytes with BUN of 31, creatinine is elevated a little bit but close to baseline levels at 1.33. Blood sugars remain fairly stable between 102 and 147. Calcium is a little low at 7.5, magnesium is a little low at 1.7. AST, ALT and bilirubin were within normal limits. TSH was normal. RADIOLOGY: Chest x-ray this morning per radiology interpretation showed cardiomegaly without congestive failure, small right sided pleural effusion. There was again haze opacities in bilateral lung bases, right greater than left, most compatible with atelectasis. Underlying infiltrate cannot be fully excluded. Echocardiogram is pending. ASSESSMENT: 1. Chronic obstructive pulmonary disease exacerbation, acute with hospitalization for recent pneumonia with the patient failing to followup with discharge plan. 2. Panic attacks likely exacerbating #1, improving with Xanax. 3. Questionable congestive heart failure with echocardiogram pending with the patient showing evidence of fluid overload on initial assessment, with the patient being noncompliant with medications. 4. Congestive heart failure, likely diastolic with pending echocardiogram. 5. Acute on chronic renal failure. His baseline creatinine is 1.1. His admitting creatinine is 1.55. 6. History of atrial fibrillation with rapid ventricular response. He did receive a dose of Cardizem en route to the hospital. He is on metoprolol, but presently on no anticoagulants due to an adverse reaction and bleeding problems. 7. Hypothyroidism on supplementation. 8. Hypertension. 9. Hyperlipidemia. PLAN: Will keep the patient in observation and continue with antibiotic coverage. He remains on Lasix IV. He did show improvement with diuresis. We have tried Xanax which has helped with his anxiety level. I have requested that Krystal Yee, one of our senior manager quality assurance social workers, see the patient in consultation. We did discuss trying to get the patient to the long term with his due to the fact that it appears he is unable to take care of himself adequately as well as manage his at home, however he has refused any assistance. After further discussion, he has agreed to try home health, but although in the past he has had this available and he has fired every home health agency that he has had. I did discuss the case with Dr. Mercedes, his primary care physician. Will try some Celexa antidepressant and continue Xanax in hopes he stabilizes medically and discharge home to followup. Until then will continue to monitor and treat as needed. #[id number] [facility]
[2020-03-23] MEDS ORDERED: METOPROLOL TARTRATE INJ 5 MG/5 ML VIAL IV ONE ×2 (19:59→20:21)
[2020-03-23] MEDS: diphenhydrAMINE HCL 25 MG CAP PO PRN (20:34)
[2020-03-24] MEDS: HYDROcodone 10MG/APAP 325MG 1 EA TAB PO PRN ×5 (04:15→23:19)
[2020-03-24] MEDS: INSULIN LISPRO 100 UNITS/ML PEN SUBCU SCH ×4 (07:24→20:45)
[2020-03-24] MEDS: FUROSEMIDE INJ 40 MG/4 ML VIAL IV SCH ×2 (08:01→17:53)
[2020-03-24] MEDS: CITALOPRAM HBR 20 MG TAB PO SCH (08:01)
[2020-03-24] MEDS: METOPROLOL TARTRATE 50 MG TAB PO SCH (08:02)
[2020-03-24] MEDS: methylPREDNISolone SODIUM SUC 40 MG/ML VIAL IV SCH (08:02)
[2020-03-24] MEDS: SODIUM CHLORIDE 0.9% (FLUSH) 10 ML SYG IV SCH ×2 (08:03→21:04)
[2020-03-24] MEDS: CEFEPIME 2 GM in SODIUM CHL 0.9% 100ML MINI-BAG 100 ML IVPB SCH ×2 (08:09→19:29)
[2020-03-24] MEDS: LEVALBUTEROL NEBS 1.25 MG/3 ML VIAL INH SCH ×4 (08:50→21:30)
[2020-03-24] MEDS: ALPRAZolam 0.25 MG TAB PO PRN ×2 (11:47→19:28)
[2020-03-24] MEDS ORDERED: LEVALBUTEROL NEBS 1.25 MG/3 ML VIAL NEB ONE (13:16)
[2020-03-24] MEDS ORDERED: METOPROLOL TARTRATE INJ 5 MG/5 ML VIAL IV ONE (13:18)
[2020-03-24] MEDS ORDERED: METOPROLOL TARTRATE 25 MG TAB PO SCH (21:00)
[2020-03-24] MEDS: diphenhydrAMINE HCL 25 MG CAP PO PRN (21:07)
[2020-03-25] MEDS: ALPRAZolam 0.25 MG TAB PO PRN ×2 (03:43→10:34)
[2020-03-25] MEDS: HYDROcodone 10MG/APAP 325MG 1 EA TAB PO PRN ×3 (03:44→12:08)
[2020-03-25 03:58] VITALS: TEMP 97.4; O2SAT 99
[2020-03-25] MEDS ORDERED: POTASSIUM CHLORIDE 20 MEQ TAB PO ONE (08:43)
[2020-03-25] MEDS ORDERED: MAGNESIUM SULFATE PREMIX 2GM 2 GM in PREMIX BAG 1 BAG IVPB ONE (08:43)
[2020-03-25] MEDS: methylPREDNISolone SODIUM SUC 40 MG/ML VIAL IV SCH (08:44)
[2020-03-25] MEDS: CITALOPRAM HBR 20 MG TAB PO SCH (08:44)
[2020-03-25] MEDS: FUROSEMIDE INJ 40 MG/4 ML VIAL IV SCH (08:44)
[2020-03-25] MEDS: SODIUM CHLORIDE 0.9% (FLUSH) 10 ML SYG IV SCH (08:45)
[2020-03-25] MEDS: INSULIN LISPRO 100 UNITS/ML PEN SUBCU SCH (08:45)
[2020-03-25] MEDS: LEVALBUTEROL NEBS 1.25 MG/3 ML VIAL INH SCH ×2 (08:46→13:24)
[2020-03-25] MEDS ORDERED: MAGNESIUM SULFATE PREMIX 2GM 50 ML IVPB ONE (08:48)
[2020-03-25] MEDS: CEFEPIME 2 GM in SODIUM CHL 0.9% 100ML MINI-BAG 100 ML IVPB SCH (08:52)
[2020-03-25] MEDS ORDERED: METOPROLOL TARTRATE 50 MG TAB PO SCH (09:00)
--- NOTE | 2020-03-25 09:41 | PN ---
SUPERVISING PHYSICIAN: Holland Mercedes M.D. DATE: 03/24/20 SUBJECTIVE: The patient continues to have some episodes of panic attack with a run of atrial fibrillation and RVR. He is not having any chest pain, he does get quite anxious,. OBJECTIVE: VITAL SIGNS: Heart rate still remains on the tachy side between 108 and 120. Blood pressure showing to be stable at 116/86, respirations 16, satting 95% on 2 liters nasal cannula. GENERAL: The patient appears to be anxious but does not vladimir to be in any acute distress. CHEST: Lung sounds are increased from yesterday, just a little diminished towards the bases. There is a notable rhonchi heard today on the right compared to the left on yesterday, heard more prominent on the posterolateral aspect. . HEART: Regular rate and rhythm. . ABDOMEN: Soft, non-tender. Positive bowel sounds. EXTREMITIES: Without any edema. NEUROLOGIC: He is alert and oriented times three. LABORATORY STUDIES: BMP shows potassium 3.5, sodium normal, magnesium little low at 1.7, glucose 117 ranging from 104 to 209. BUN down to 33, creatinine 1.39. MICROBIOLOGY: No specimens are submitted. RADIOLOGY: No additional radiographic studies today. Echocardiogram yesterday showed an ejection fraction between 35 and 40% but I need to verify that. ASSESSMENT: 1. Chronic obstructive pulmonary disease exacerbation, acute with hospitalization for recent pneumonia. 2. Atrial fibrillation with left ventricular response continuing to require ongoing phone calls from management in the form of increasing beta vishal with consideration for starting him on Digoxin. 3. Anxiety with multiple panic attacks likely exacerbating #2 showing some improvement with Xanax. 4. Acute decompensated heart failure with reduced ejection fraction on echocardiogram with 35 to 40% exacerbated by #2. 5. Acute on chronic renal failure now at baseline levels. 6. Hypothyroidism on supplementation. 7. Hypertension. 8. Hyperlipidemia. PLAN: We will continue with antibiotic coverage with Cefepime and he does remain on Lasix. We dropped his metoprolol to 75 mg at bedtime and 50 mg in the morning. He has required 2 doses of IV metoprolol 5 mg. We are going to try to put him on digoxin but at this point try to see if I can avoid digoxin and include his metoprolol to cover any examination of chronic obstructive pulmonary disease due to his reactive airway disease. Hopefully, we will be able to stabilize him and send him home tomorrow, planning to go home on a little bit of Xanax as that seems to be helping. He will need close followup with Dr. Mercedes. Will continue antibiotic coverage and should be finishing up the prednisone which may be exacerbating some of his anxiety. He has agreed to try home health through [facility] that has been sent in for referral. He is on Celexa started on admission. Until we can transition him to outpatient management, we will continue to monitor and treat as needed #[id number] MTDD
[2020-03-25 11:07] VITALS: BP 116/81
--- NOTE | 2020-03-25 14:31 | DS ---
SUPERVISING PHYSICIAN: Holland Mercedes M.D. DISCHARGE DIAGNOSIS: 1. Chronic obstructive pulmonary disease exacerbation, acute with hospitalization for recent pneumonia. 2. Atrial fibrillation with left ventricular response continuing to require ongoing phone calls from management in the form of increasing beta vishal with consideration for starting him on Digoxin. 3. Anxiety with multiple panic attacks likely exacerbating #2 showing some improvement with Xanax. 4. Acute decompensated heart failure with reduced ejection fraction on echocardiogram with 35 to 40% exacerbated by #2. 5. Acute on chronic renal failure now at baseline levels. 6. Hypothyroidism on supplementation. 7. Hypertension. 8. Hyperlipidemia. HISTORY OF PRESENT ILLNESS: This is an 89-year-old male who presented to the Emergency Room because he "just didn't feel right." He has a significant medical history of chronic obstructive pulmonary disease. He is on home oxygen supplementation. He also has atrial fibrillation and congestive heart failure. He has been hospitalized multiple times over the last few months. He is very poorly compliant with his medications. He also takes care of his who has severe dementia and he is unable to drive. He also has panic attacks and he came into the hospital complaining of "feeling poorly." He had some nausea with nasal congestion, wheezing and shortness of breath. He actually had been in the hospital a week prior to coming into the [facility]. [facility] for pneumonia. He also had some lower extremity edema and frequently will not take his Lasix because he is unable to get up to urinate due to his weakness and shortness of breath. He was sent home on a cephalosporin and another antibiotic as well as a prednisone taper, and those were not filled. Initially upon arrival at the hospital, he was in atrial fibrillation with rapid ventricular response with a rates in the 160s. He was given a Cardizem bolus and his heart rate came down to 101. His temperature was 97.9, blood pressure 134/82, respiratory rate 23 to 26 and an O2 saturation in the low 90s. Lab studies were done which showed a WBC of 6 with hemoglobin 14, hematocrit 41.7. Sodium 135, potassium 3.7, chloride 96, carbon dioxide 21, BUN 32, creatinine 1.55. Calcium 7.4, total bilirubin 1.1, and troponins were negative. His liver enzymes were negative. He had 40 of urine ketones and a small amount of urine bilirubin. His chest x-ray showed a large heart with central prominent pulmonary vasculature and a small right pleural effusion. He was given some Lasix in the E. R. as well as DuoNebs. Albuterol tends to make him very anxious and jittery and then given some diphenhydramine. At his last hospital stay, he was tested for COVID-19 and it was negative. He has not been exposed since or out of his house since discharge. Due to his weakness and shortness of breath as well as his inability to take care of himself, he was admitted to the hospital. He was placed in observation. HOSPITAL COURSE: Because he did not get his medications from last week, he was started on Cefepime as well as a low dose of IV steroids. He was on aggressive pulmonary hygiene, including Xopenex both p.r.n. and scheduled treatments. He was also given some Ativan for anxiety and was later changed to Xanax. Initially he had considered going to a alf for he and his , but after he improved he decided he would go home and try it again. We had a long discussion about his need for his self care as well as his 's care, and he does realize that he will have to make some changes within the next few weeks. I started the patient on a low dose of Celexa that hopefully would help him with his anxiety. He also had p.r.n. Xanax. He was ulcer prophylaxis with a PPI but his Lovenox was held due to an adverse reaction with anticoagulants and placed on SCDs at that time. An echocardiogram was ordered. His anxiety still continued to be a problem, but once they were giving him fairly routine Xanax he was much better. We continued to give him Lasix ad he diuresed well. He has slowly improved. He did agree to home health, but in the past he has fired all agencies that have come to his house. Other than having an occasional panic attack and one run of atrial fibrillation with RVR, he has mostly stabilized. He did get an increase of his Metoprolol at night to 75 mg at night but continued on his 50 mg of Metoprolol tartrate in the morning. His heart rate has been controlled in the 80s. Today, he will be discharged home in stable condition with close followup with Dr. Mercedes. LABORATORY: WBCs are stable at 6 and 5.1 with hemoglobin 14.5, hematocrit 43.1. Blood sugars have run between 104 and 209. Sodium 135, potassium 3.5, chloride 96, BUN 37, creatinine improved to 1.24, calcium of 7.2 and magnesium of 1.7. He required potassium and magnesium supplementation this morning. Chest x-ray showed: 1. Cardiomegaly without congestive heart failure. 2. Small right sided pleural effusion. 3. Hazy opacities in the bilateral lung bases, right greater than left, most compatible with atelectasis. DISCHARGE PLAN: The patient will be discharged home in stable condition. He is to resume his previous diet and increase his activity as tolerated. He is to followup with Dr. Mercedes in the next week. I have called his medications in to [facility] and they have agreed to deliver his medications to his home. His new medication prescriptions are: 1. Xanax 0.25 mg every 8 hours p.r.n. for anxiety. 2. Cefdinir for 14 days. 3. Celexa. 4. Xopenex. 5. Metoprolol tartrate 75 mg at bedtime. 6. Metoprolol tartrate 50 mg daily. 7. Prednisone taper. He is to return to the hospital or followup with Dr. Mercedes for any problems or complications. DISCHARGE MEDICATIONS: 1. Metoprolol 50 mg AM, 75 mg PM. 2. Simvastatin. 3. Omeprazole. 4. Levothyroxine. 5. Potassium. 6. Furosemide. 7. Ferrous gluconate. 8. Hydrocodone. 9. Primidone. 10. Prednisone taper. 11. Alprazolam. 12. Citalopram. 13. Xopenex. 14. Cefdinir. #[id number] [facility]
== END 2020-03-25 12:40 | disposition home or self-care (01) ==
LOC: ER 14:00 → MS 18:59
PROVIDERS: ADMIT Nurse Practitioner Acute Care; ATTEND Nurse Practitioner Acute Care
DX: J44.1 Chronic obstructive pulmonary disease with (acute) exacerbation (principal); I48.20 Chronic atrial fibrillation, unspecified; F41.0 Panic disorder [episodic paroxysmal anxiety]; I13.0 Hypertensive heart and chronic kidney disease with heart failure and stage 1 through stage 4 chronic kidney disease, or unspecified chronic kidney disease; I50.33 Acute on chronic diastolic (congestive) heart failure; N18.9 Chronic kidney disease, unspecified; N17.9 Acute kidney failure, unspecified; E03.9 Hypothyroidism, unspecified; E78.5 Hyperlipidemia, unspecified; E83.42 Hypomagnesemia; E83.51 Hypocalcemia; I34.0 Nonrheumatic mitral (valve) insufficiency; I35.0 Nonrheumatic aortic (valve) stenosis; I35.1 Nonrheumatic aortic (valve) insufficiency; G89.29 Other chronic pain; K21.9 Gastro-esophageal reflux disease without esophagitis; Z66 Do not resuscitate; Z99.81 Dependence on supplemental oxygen; Z79.891 Long term (current) use of opiate analgesic; Z79.899 Other long term (current) drug therapy; Z91.14 Patient's other noncompliance with medication regimen; Z87.01 Personal history of pneumonia (recurrent); Z87.891 Personal history of nicotine dependence
CPT/HCPCS: 96366 ×2; 96367; 96365; 96375 ×2; 96376 ×3; Q0163 ×3; J1200; J1940 ×6; J1030 ×4; A4216 ×6; J7620; J0692 ×6; J3475; J7050 ×6; J7614 ×9; 80048 ×2; 80053 ×2; 82040; 82948 ×11; 36415 ×5; 81001; 85025 ×2; 83735 ×3; 84443; 84484 ×2; 83880; 36416 ×10; 71045; 71046; 94640 ×10; 94760 ×5; 99285; 93306; 93005 ×2; G0378

== ENCOUNTER → 2020-06-22 | Outpatient (CLI) | payer MEDICARE ==
--- NOTE | 2020-06-22 18:04 | RAD ---
EXAM DESCRIPTION: Foot,Left 3 Views CLINICAL HISTORY: 89 years Male, PAIN IN LEFT FOOT COMPARISON: None. Findings: 3 view(s)/radiograph(s) No acute fracture or dislocation. Lisfranc alignment is maintained. Osteopenia. Pes planus with mild midfoot osteoarthritis. No focal soft tissue swelling. IMPRESSION: No acute osseous abnormality identified in the left foot. Electronically signed by: Abilio Sarmiento MD 06/22/2020 6:02 PM CDT
== END ==
LOC: RAD 08:17
PROVIDERS: ATTEND Orthopaedic Surgery
DX: M79.672 Pain in left foot (principal)